=== PATIENT | male | born 1950 | race Caucasian/White ===

== ENCOUNTER → 2016-11-25 | Outpatient (CLI) | payer MEDICARE ==
[~2016-11-25] MED LIST: /OXYB10XLT PO; /VITACHEW PO; ALLO300T2 PO; ARTH1TAB PO; ASPI325T5 PO; BYET10IN SC; CALC600T9 PO; CARV25TA PO; CITA40TA PO; CORE25TA PO; DIOV320T PO; DIOVAN PO; FISH1000 PO; FURO80TA2 PO; MAGN64TASA PO; METF1000 PO; NEUR300C PO; OXYBUTYNIN PO; PANT40TA2 PO; PRAV40TA PO; VITAD1000T PO
[2016-11-25 13:08] LABS: ALBUMIN 3.8 GM/DL (3.2-5.2); ANION GAP 8 MEQ/L (8-16); BLOOD UREA NITROGEN 17 MG/DL (7-18); CALCIUM LEVEL 8.8 MG/DL (8.8-10.2); CARBON DIOXIDE LEVEL 29 MEQ/L (21-32); CHLORIDE LEVEL 106 MEQ/L (98-107); CREATININE FOR GFR 0.88 MG/DL (0.70-1.30); GLOMERULAR FILTRATION RATE > 60.0 (>49); GLUCOSE, FASTING 120 MG/DL (80-110); MAGNESIUM LEVEL 1.9 MG/DL (1.8-2.4); PHOSPHORUS LEVEL 2.8 MG/DL (2.5-4.9); POTASSIUM SERUM 4.2 MEQ/L (3.5-5.1); SODIUM LEVEL 143 MEQ/L (136-145)
== END ==
LOC: M LAB 11:59
PROVIDERS: ATTEND Physician Assistant
DX: I50.32 Chronic diastolic (congestive) heart failure (principal)

== ENCOUNTER → 2017-01-01 | Outpatient (CLI) | payer MEDICARE ==
--- NOTE | 2017-01-01 13:55 | REP ---
Clinical: Pain. Technique: AP, lateral, bilateral oblique views of the left wrist. Findings: Age-related arthritic degenerative changes primarily involving the first and second carpometacarpal joints noted. There is no evidence for acute or obvious healed fracture. Impression: Moderate osteoarthritic degenerative changes. No evidence for acute or healed fracture. Signed by Delio Iraheta MD 01/01/2017 01:46 P
== END ==
LOC: M RAD 13:05
DX: M25.532 Pain in left wrist (principal); M19.032 Primary osteoarthritis, left wrist

== ENCOUNTER → 2017-03-17 | Outpatient (CLI) | payer MEDICARE ==
[2017-03-17 09:22] LABS: ALBUMIN 3.6 GM/DL (3.2-5.2); ANION GAP 7 MEQ/L (8-16); BLOOD UREA NITROGEN 25 MG/DL (7-18); CALCIUM LEVEL 8.5 MG/DL (8.8-10.2); CARBON DIOXIDE LEVEL 28 MEQ/L (21-32); CHLORIDE LEVEL 104 MEQ/L (98-107); CREATININE FOR GFR 0.99 MG/DL (0.70-1.30); GLOMERULAR FILTRATION RATE > 60.0 (>49); GLUCOSE, FASTING 182 MG/DL (80-110); MAGNESIUM LEVEL 1.9 MG/DL (1.8-2.4); PHOSPHORUS LEVEL 3.2 MG/DL (2.5-4.9); POTASSIUM SERUM 4.7 MEQ/L (3.5-5.1); SODIUM LEVEL 139 MEQ/L (136-145)
== END ==
LOC: M LAB 08:10
PROVIDERS: ATTEND Physician Assistant
DX: I50.32 Chronic diastolic (congestive) heart failure (principal); I47.2 Ventricular tachycardia; I48.2 Chronic atrial fibrillation

== ENCOUNTER → 2017-05-06 | Outpatient (REF) | payer MEDICARE ==
[2017-05-06 19:16] LABS: PERCENT SATURATION 26.1 % (19.7-37.4)
== END ==
LOC: M LAB REF 16:25
PROVIDERS: ATTEND Nurse Practitioner Adult Health
DX: Z98.84 Bariatric surgery status (principal); Z79.899 Other long term (current) drug therapy

== ENCOUNTER → 2017-08-06 | Outpatient (REF) | payer MEDICARE | LOC: M LAB REF 17:04 | PROVIDERS: ATTEND Nurse Practitioner Adult Health | DX: Z01.89 Encounter for other specified special examinations (principal) ==

== ENCOUNTER 2017-11-04 12:05 | Inpatient (IN) | payer MEDICARE, MEDICAID ==
[2017-11-04] VITALS (9 sets, daily range): BP systolic 99–163; BP diastolic 53–95
[~2017-11-04] VITALS: Ht 188 cm; Wt 123.5 kg
[2017-11-04] MEDS ORDERED: CHARCOAL ACTIVATED LIQUID 25 GM/120 ML BTL PO ONE (13:00)
[2017-11-04 13:09] LABS: BASO % 0.2 % (0.0-1.0); EOS # 0.1 10^3/uL (0.0-0.50); EOS % 1.5 % (0.0-3.0); IMMATURE GRANULOCYTE % 0.2 % (0-0); LYMPH # 1.6 10^3/uL (1.5-4.5); LYMPH % 24.1 % (24.0-44.0); MEAN CORPUSCULAR HEMOGLOBIN 32.9 pg (27.0-33.0); MEAN CORPUSCULAR HGB CONC 34.8 g/dl (32.0-36.5); MEAN CORPUSCULAR VOLUME 94.3 fl (80.0-96.0); MONO # 0.4 10^3/uL (0.0-0.8); MONO % 6.8 % (0.0-5.0); NEUTROPHILS # 4.3 10^3/uL (1.8-7.7); NEUTROPHILS % 67.2 % (36.0-66.0); PLATELET COUNT, AUTOMATED 197 10^3/uL (150-450); RED CELL DISTRIBUTION WIDTH 14.1 % (11.5-14.5); WHITE BLOOD COUNT 6.5 10^3/uL (4.0-10.0)
[2017-11-04 13:19] LABS: ABG BASE EXCESS 2.6 (-2.0-2.0); ABG HCO3 24.8 MEQ/L (22.0-26.0); ABG PARTIAL PRESSURE CO2 31.4 mmHg (35.0-45.0); ABG PARTIAL PRESSURE O2 87.7 mmHg (75.0-100.0); ABG STANDARD HCO3 26.8 MEQ/L (22.0-26.0); ABG TOTAL CO2 25.7 MEQ/L (23.0-31.0); ABG pH (ARTERIAL) 7.515 UNITS (7.350-7.450)
[2017-11-04] MEDS ORDERED: NS 1,000 ML IV ONE ×2 (13:30→17:30)
[2017-11-04 13:46] LABS: ALBUMIN/GLOBULIN RATIO 1.18 (1.00-1.93); ALKALINE PHOSPHATASE 68 U/L (45-117); ALT/SGPT 23 U/L (12-78); ANION GAP 10 MEQ/L (8-16); AST/SGOT 12 U/L (7-37); BILIRUBIN,DIRECT 0.1 MG/DL (0.0-0.2); BILIRUBIN,TOTAL 0.3 MG/DL (0.2-1.0); BLOOD UREA NITROGEN 21 MG/DL (7-18); CALCIUM LEVEL 8.3 MG/DL (8.8-10.2); CARBON DIOXIDE LEVEL 27 MEQ/L (21-32); CHLORIDE LEVEL 102 MEQ/L (98-107); GLOMERULAR FILTRATION RATE > 60.0 (>49); GLUCOSE, FASTING 186 MG/DL (80-110); POTASSIUM SERUM 3.6 MEQ/L (3.5-5.1); SODIUM LEVEL 139 MEQ/L (136-145); TOTAL PROTEIN 7.4 GM/DL (6.4-8.2)
[2017-11-04 13:51] LABS: METHADONE URINE NEGATIVE (NEGATIVE)
[2017-11-04] MEDS ORDERED: GOLYTELY SOLN 4000 ML BTL NG STA (14:20)
[2017-11-04] MEDS ORDERED: ONDANSETRON 4MG/2ML VIAL (J2405) IV ONE (14:30)
--- NOTE | 2017-11-04 15:33 | REP ---
KUB: Single view. History: NG placement. Comparison abdominal films are from March 22, 2009. Findings: Portable KUB demonstrates the tip of the NG tube at the gastroesophageal junction just inside the gastric fundus. This should be advanced. There are clips at the GE junction. Air and fluid filled large and small bowel loops are seen. Signed by Tyson Rivers MD 11/04/2017 04:03 P
--- NOTE | 2017-11-04 15:37 | REP ---
Chest x-ray: Single supine view. History: NG placement. Findings: The right lateral chest wall is excluded from the imaging field of view. A nasogastric tube is seen coursing through the mediastinum terminating at the level of the gastroesophageal junction. This should be advanced. A bipolar pacemaker is seen in the right heart. There are surgical clips adjacent to the distal esophagus. Signed by Tyson Rivers MD 11/04/2017 04:03 P
[2017-11-04] MEDS ORDERED: CARV12.5 PO (15:38)
[2017-11-04] MEDS ORDERED: VALS1TAB47 PO (15:38)
[2017-11-04] MEDS ORDERED: XARE20TA PO (15:38)
[2017-11-04] MEDS ORDERED: PRAV80TA2 PO (15:38)
[2017-11-04] MEDS ORDERED: MYRB50TA PO (15:38)
[2017-11-04] MEDS ORDERED: ANOR1AER INH (15:38)
[2017-11-04] MEDS ORDERED: INSUDET SC (15:38)
--- NOTE | 2017-11-04 16:20 | REP ---
Portable chest x-ray: Two views presented. History: Drug overdose. Comparison study February 10, 2013. Findings: A pacemaker is seen in the right heart again via the left side. Cardiomegaly is observed as before. EKG electrodes are seen. No infiltrate is seen. Pleural angles are sharp. Pulmonary vasculature is not increased. Impression: Cardiomegaly with pacemaker. Otherwise no acute disease. Signed by Tyson Rivers MD 11/04/2017 04:11 P
[2017-11-04] MEDS ORDERED: DEXTROSE 50% 50 ML SYRINGE IV PRN (16:45)
[2017-11-04] MEDS ORDERED: GLUCAGON FOR INJ 1 MG VIAL (J1610) SC PRN (16:45)
[2017-11-04] MEDS ORDERED: ONDANSETRON 4MG/2ML VIAL (J2405) IV PRN (16:45)
[2017-11-04] MEDS ORDERED: GLUCOSE 4 GM CHEW TABLET PO PRN (16:45)
[2017-11-04] MEDS ORDERED: METOCLOPRAMIDE INJ 10MG/2ML VIAL (J2765) IV PRN (16:45)
--- NOTE | 2017-11-04 17:59 | HPEPDOC ---
General Date of Admission Nov 04, 2017 at 16:32 Primary Care Physician: Jr Harmon Collins Attending Physician: JANIA URBINA MD Chief Complaint The patient is a 67-year-old male admitted with a reason for visit of Intentional Furosemide And Metformin O/D. Source: Patient Timing/Duration: This morning Severity: Moderate History of Present Illness Parents is a 67 y. o white male, presents via ambulance due to intensional overdose. He admits to trying to kill himself with medication. He took 20 tablets of 1000 mg metformin, 30 tablets of 12.5 mg carvedilol, 77 tablets of 80 mg of Lasix, 60 tablets of 60 mg valsartan. Patient states that immediately after taking these pills he called ambulance crying and sobbing and asked for help. Patient states that he try to kill himself because he was severely depressed. According to patient, he went to a [a[place] with his in-laws and became incredibly saddened by the fact that no one asked how he was doing. He then went home and given fact that he lives alone with his cat. His depression worsen.This morning patient attempted to end his life by taking pills. Patient admits that he heard voices telling him to end his life. This is not patient's first suicide attempt, back in 2001 patient attempted suicide with pills after the of his mother and uncle. In the ED EKG showed an abnormal rhythm because of electronic ventricular pacemaker. Patient denied nausea, denied headache denied palpitations. He did admit to urinating excessively since taken his Lasix. He also denied chest pain. Patient denied abdominal pain. Patient denied hearing voices while in the ED. Denied homicidal ideation. Denied continued need for suicide Patient will appreciate a psych consult. Patient also requested to speak to his own elementary school librarian, I offered him the elementary school librarian in the hospital but patient declined. Patient has a past medical history of hypertension, neuropathy, arrhythmia, nephrolithiasis, diabetes dependent on insulin, hypercholesterolemia, paroxysmal atrial fibrillation, congestive heart failure (diastolic), with prior sustained ventricular tachycardia, obesity ( patient had a gastric bypass for his obesity), depression, prior suicide attempt, patient underwent a previous dual chamber automatic cardioverter defibrillator implant and subsequent AV aleshia ablation for paroxysmal atrial fibrillation inappropriate AICD discharge. In february 2013 patient underwent elective dual-chamber auto cardioverter/defibrillator pulse generator replacement because of initial device showing elective replacement indicator. Activated charcoal was started and whole bowel prep was started. The effects of the beta tramaine not be accessed because of his pacemaker. Home Medications Scheduled (Pantoprazole Sodium) 40 Mg Tab, 40 MG PO DAILY, (Reported) (Anoro Ellipta 62.5-25 Mcg/INH) 1 Aer Aer, 1 AER INH DAILY, (Reported) Allopurinol (Allopurinol) 300 Mg Tab, 300 MG PO DAILY, (Reported) Calcium Carbonate (Calcium) 600 Mg Tab, 600 MG PO BID, (Reported) Carvedilol (Carvedilol) 12.5 Mg Tab, 12.5 MG PO BID Citalopram Hydrobromide (Citalopram Hydrobromide) 40 Mg Tab, 40 MG PO DAILY, ( Reported) Fish Oil (Fish Oil) 1,000 Mg Cap, 1,000 MG PO TID, (Reported) Furosemide (Furosemide) 80 Mg Tab, 80 MG PO DAILY Gabapentin (Neurontin) 300 Mg Cap, 300 MG PO TID, (Reported) Insulin Detemir (Levemir) 1 Units/0.01 Ml Susp, 18 UNITS SC QHS, (Reported) Magnesium Chloride (Slo-Mag) 64 Mg Tabcr, 64 MG PO DAILY, (Reported) Metformin Hydrochloride (Metformin HCl) 1,000 Mg Tab, 1,000 MG PO BID Mirabegron Base (Myrbetriq) 50 Mg Tab, 50 MG PO DAILY, (Reported) Multivitamins (Flintstones Complete) 1 Ea Chw, 1 EA PO TID, (Reported) Pravastatin Sodium (Pravastatin Sodium) 80 Mg Tab, 80 MG PO DAILY, (Reported) Rivaroxaban (Xarelto) 20 Mg Tab, 20 MG PO DAILY, (Reported) Valsartan (Valsartan) 160 Mg Tab, 160 MG PO BID Vitamin D (Vitamin D) 1,000 Units Tab, 1,000 UNITS PO 1XWK, (Reported) SATURDAYS Scheduled PRN Acetaminophen (Tylenol Arthritis Er) 650 Mg Tabcr, 650 MG PO TID PRN for PAIN, ( Reported) Allergies Coded Allergies: No Known Allergies (Verified , 09/07/05) Past Medical History Medical History hypertension, neuropathy, arrhythmia, nephrolithiasis, diabetes dependent on insulin, hypercholesterolemia, paroxysmal atrial fibrillation, congestive heart failure (diastolic), with prior sustained ventricular tachycardia, obesity ( patient had a gastric bypass for his obesity), depression, prior suicide attempt , patient currently has an ICD Family History Both of his parents had colon cancer Social History * Smoker: former Smoker Alcohol: Denies Drugs: denies Recent Travel/Sick Contacts: Denies: Recent travel, Recent sick contacts Psychosocial History: Depression, Emotional problems, Prior suicide attempt, Suicidal thoughts Review of Systems Constitutional: Denies: Chills, Fever Eyes: Denies: Pain, Vision change ENT: Denies: Head Aches, Ear Pain, Dysphagia Skin: Denies: Rash, Lesions, Breakdown Pulmonary: Denies: Dyspnea, Cough Cardiovascular: Denies: Chest Pain, Palpitations, Orthopnea, Paroxysmal Noc. Dyspnea, Lt Headedness Gastrointestinal: Denies: Nausea, Vomiting, Abdominal Pain, Diarrhea Genitourinary: Denies: Dysuria, Frequency, Incontinence, Retention Hematologic: Denies: Bruising, Bleeding Excessively Musculoskeletal: Denies: Neck Pain, Back Pain, Joint Pain, Muscle Pain, Spasms Neurological: Denies: Weakness, Numbness, Change in speech, Confusion Psych: Reports: Mood Normal, Depression, Thoughts of Self Harm, Anger, Denies: Memory Issues, Thoughts of Harming Other Physical Examination General Exam: Positive: Alert, No Acute Distress Eye Exam: Positive: PERRLA, Conjunctiva & lids normal, EOMI, Negative: Sclera icteric ENT Exam: Positive: Atraumatic, Mucous membr. moist/pink, Pharynx Normal, Other ENT (nasogastric tube in place) Neck Exam: Positive: Supple, Negative: JVD, thyromegaly Chest Exam: Positive: Clear to auscultation, Normal air movement Heart Exam: Positive: Rate Normal, Irregular Rhythm, Normal S1, Normal S2, Negative: Murmurs, Rubs Telemetry: Positive: Atrial fibrillation, Tachycardia Abdomen Exam: Positive: Normal bowel sounds, Soft, Negative: Tenderness, Hepatospenomegaly Extremity Exam: Positive: Normal pulses, Negative: Clubbing, Cyanosis, Edema Skin Exam: Positive: Nl turgor and temperature, Negative: Breakdown, Lesion Neuro Exam: Positive: Normal Gait, Normal Speech, Cranial Nerves 3-12 NL, Reflexes 2+ Psych Exam: Positive: Mental status NL, Mood NL, Oriented x 3 Vital Signs Vital Signs Date Time Temp Pulse Resp B/P (MAP) Pulse Ox O2 Delivery O2 Flow Rate FiO2 12/21/17 16:33 97.9 18 11/04/17 15:05 69 96 11/04/17 14:41 112/77 (89) 11/04/17 12:16 Room Air Laboratory Data Labs 24H Laboratory Tests 2 11/04/17 12:48: [facility]H 11/04/17 12:55: Immature Granulocyte % (Auto) 0.2H, White Blood Count 6.5, Red Blood Count 4.23L , Hemoglobin 13.9L, Hematocrit 39.9L, Mean Corpuscular Volume 94.3, Mean Corpuscular Hemoglobin 32.9, Mean Corpuscular Hemoglobin Concent 34.8, Red Cell Distribution Width 14.1, Platelet Count 197, Neutrophils (%) (Auto) 67.2H, Lymphocytes (%) (Auto) 24.1, Monocytes (%) (Auto) 6.8H, Eosinophils (%) (Auto) 1.5, Basophils (%) (Auto) 0.2, Neutrophils # (Auto) 4.3, Lymphocytes # (Auto) 1.6, Monocytes # (Auto) 0.4, Eosinophils # (Auto) 0.1, Basophils # (Auto) 0.0, Immature Granulocyte # (Auto) 0.0, Nucleated Red Blood Cells % (auto) 0.0, Blood Gas Bicarbonate Standard 26.8H, Arterial Blood pH 7.515H, Arterial Blood Partial Pressure CO2 31.4L, Arterial Blood Partial Pressure O2 87.7, Arterial Blood Total CO2 25.7, Arterial Blood HCO3 24.8, Arterial Blood Base Excess 2.6H , Arterial Blood Oxygen Saturation 97.0, Anion Gap 10, Glomerular Filtration Rate > 60.0, Calcium Level 8.3L, Aspartate Amino Transf (AST/SGOT) 12, Alanine Aminotransferase (ALT/SGPT) 23, Alkaline Phosphatase 68, Total Bilirubin 0.3, Direct Bilirubin 0.1, Total Creatine Kinase 97, Total Protein 7.4, Albumin 4.0, Albumin/Globulin Ratio 1.18, Thyroid Stimulating Hormone (TSH) 1.230, Salicylates Level < 1.7L, Acetaminophen Level < 2.0L, Ethyl Alcohol Level 0.004 11/04/17 13:01: Urine Amphetamines Screen NEGATIVE, Urine Benzodiazepines Screen NEGATIVE, Urine Opiates Screen NEGATIVE, Urine Methadone Screen NEGATIVE, Urine Barbiturates Screen NEGATIVE, Urine Phencyclidine Screen NEGATIVE, Urine Cocaine Metabolite Screen NEGATIVE, Urine Cannabinoids Screen NEGATIVE 11/04/17 13:33: Lactic Acid Level 4.9*H 11/04/17 15:48: Lactic Acid Level 4.9*H 11/04/17 16:59: Bedside Glucose [facility]) 142H CBC/BMP Laboratory Tests 11/04/17 12:55 Red Blood Count 4.23 L, Mean Corpuscular Volume 94.3, Mean Corpuscular Hemoglobin 32.9, Mean Corpuscular Hemoglobin Concent 34.8, Red Cell Distribution Width 14.1, Neutrophils (%) (Auto) 67.2 H, Lymphocytes (%) (Auto) 24.1, Monocytes (%) (Auto) 6.8 H, Eosinophils (%) (Auto) 1.5, Basophils (%) ( Auto) 0.2, Neutrophils # (Auto) 4.3, Lymphocytes # (Auto) 1.6, Monocytes # (Auto ) 0.4, Eosinophils # (Auto) 0.1, Basophils # (Auto) 0.0 Assessment/Plan Suicidal ideation -Patient expresses suicidal ideations secondary to social factors, including living alone and issues about his stepson sexuality -Psychiatry has been called, Spoke to Dr. Miller, please call addiction counselor psychiatrist Dr. Yu tomorrow for consult. Medication overdose -Poison control has been contacted -Activated charcoal given -Whole bowel irrigation -Polyethylene glycol/electrolyte solution infusion started under the recommendation of poison control -It will start her 500 mls per hour and increase by 500 mL's every 20 minutes as patient tolerates that with a goal of 1500 200o ml an hour -Assess for bowel sounds every 30-60 minutes, stopping fusion if bowel sounds are absent, or pt passes activated charcoal -Visual lactic acid every 2 hours to monitor lactic acidosis: trend to normal -Nasogastric tube in place for suction of stomach content -Patient's heart rate is well-controlled with pacemaker Diabetes -Hold Levemir -And is on hypoglycemic protocol Paroxysmal afib : will continue anticoagulation Hypertension : will hold antihypertensives h/o sustained ventricular tachycardia: Has AICD in place diastolic CHF: fluid status euvolemic. Plan / VTE VTE Prophylaxis Ordered?: Yes GME ATTESTATION GME ATTESTATION My faculty preceptor for this patient encounter was physically present during the encounter and was fully available. All aspects of the patient interview, examination, medical decision making process, and medical care plan development were reviewed and approved by the faculty preceptor. The faculty preceptor is aware and concurs with the plan as stated in the body of this note and will attest to such by his/her cosignature. ROSY MOREJON DO Nov 04, 2017 17:59 JANIA URBINA MD Nov 08, 2017 13:16
[2017-11-04] MEDS: HumaLOG INSULIN (NovoLOG) PER UNIT SC SCH (18:00)
[2017-11-04 18:57] LABS: ALBUMIN 4.2 GM/DL (3.2-5.2); ALBUMIN/GLOBULIN RATIO 1.11 (1.00-1.93); ALKALINE PHOSPHATASE 74 U/L (45-117); ALT/SGPT 24 U/L (12-78); ANION GAP 11 MEQ/L (8-16); AST/SGOT 14 U/L (7-37); BILIRUBIN,TOTAL 0.5 MG/DL (0.2-1.0); BLOOD UREA NITROGEN 18 MG/DL (7-18); CALCIUM LEVEL 8.7 MG/DL (8.8-10.2); CARBON DIOXIDE LEVEL 23 MEQ/L (21-32); CHLORIDE LEVEL 104 MEQ/L (98-107); CREATININE FOR GFR 0.98 MG/DL (0.70-1.30); GLOMERULAR FILTRATION RATE > 60.0 (>49); GLUCOSE, FASTING 146 MG/DL (80-110); POTASSIUM SERUM 3.7 MEQ/L (3.5-5.1); SODIUM LEVEL 138 MEQ/L (136-145)
[2017-11-04] MEDS ORDERED: GOLYTELY SOLN 4000 ML BTL PO ONE (21:00)
[2017-11-04] MEDS ORDERED: NS 1,000 ML IV SCH (22:30)
[2017-11-05] VITALS (12 sets, daily range): BP systolic 108–183; BP diastolic 61–95
[2017-11-05] MEDS: HumaLOG INSULIN (NovoLOG) PER UNIT SC SCH ×5 (00:14→23:49)
[2017-11-05 00:59] LABS: ANION GAP 9 MEQ/L (8-16); BLOOD UREA NITROGEN 20 MG/DL (7-18); CALCIUM LEVEL 8.5 MG/DL (8.8-10.2); CARBON DIOXIDE LEVEL 27 MEQ/L (21-32); CHLORIDE LEVEL 102 MEQ/L (98-107); CREATININE FOR GFR 1.24 MG/DL (0.70-1.30); GLOMERULAR FILTRATION RATE > 60.0 (>49); GLUCOSE, FASTING 185 MG/DL (80-110); POTASSIUM SERUM 3.3 MEQ/L (3.5-5.1); SODIUM LEVEL 138 MEQ/L (136-145)
[2017-11-05] MEDS ORDERED: GOLYTELY SOLN 4000 ML BTL PO ONE ×2 (02:30→09:00)
[2017-11-05] MEDS: NS 1,000 ML IV SCH ×2 (02:58→08:00)
[2017-11-05 05:10] LABS: MEAN CORPUSCULAR HEMOGLOBIN 32.4 pg (27.0-33.0); MEAN CORPUSCULAR HGB CONC 34.4 g/dl (32.0-36.5); MEAN CORPUSCULAR VOLUME 94.1 fl (80.0-96.0); PLATELET COUNT, AUTOMATED 179 10^3/uL (150-450); RED CELL DISTRIBUTION WIDTH 13.9 % (11.5-14.5); WHITE BLOOD COUNT 7.8 10^3/uL (4.0-10.0)
[2017-11-05 05:22] LABS: ANION GAP 10 MEQ/L (8-16); BLOOD UREA NITROGEN 20 MG/DL (7-18); CALCIUM LEVEL 7.9 MG/DL (8.8-10.2); CARBON DIOXIDE LEVEL 28 MEQ/L (21-32); CHLORIDE LEVEL 103 MEQ/L (98-107); CREATININE FOR GFR 1.22 MG/DL (0.70-1.30); GLOMERULAR FILTRATION RATE > 60.0 (>49); GLUCOSE, FASTING 155 MG/DL (80-110); POTASSIUM SERUM 3.2 MEQ/L (3.5-5.1); SODIUM LEVEL 141 MEQ/L (136-145)
[2017-11-05] MEDS ORDERED: ACETAMINOPHEN 650MG ER TAB (TYLENOL ARTHRITIS) PO PRN (06:00)
[2017-11-05] MEDS: ALLOPURINOL 300 MG TAB PO SCH (08:18)
[2017-11-05] MEDS: PRAVASTATIN 20 MG TAB PO SCH (08:18)
[2017-11-05] MEDS: KCL 10MEQ IN 100ML SWI (KRUN) 10 MEQ in APPROPRIATE DILUENT 1 EA IV SCH ×8 (08:18→11:31)
[2017-11-05] MEDS: GABAPENTIN 300 MG CAP PO SCH ×3 (08:18→20:09)
[2017-11-05] MEDS: PANTOPRAZOLE 40MG TAB (PROTONIX) PO SCH (08:19)
[2017-11-05] MEDS: ENOXAPARIN 40 MG/0.4 ML SYRINGE (J1650) SC SCH (08:19)
--- NOTE | 2017-11-05 16:41 | ECGEPIP ---
Stationary ECG Study [facility] - ED Test Date: 2017-11-04 Pat Name: JODY BUENROSTRO Department: Room: - Gender: M Copy Room Technician: ct : 1950 Requested By: Brian Yin Order Number: [id number] Reading MD: Princess Alexander Measurements Intervals [place] Rate: 69 P: [place]: 0 QRS: -75 QRSD: 186 T: 79 QT: 451 QTc: 486 Interpretive Statements ELECTRONIC VENTRICULAR PACEMAKER ABNORMAL RHYTHM ECG SIMILAR 10/02/16 Electronically Signed On 11-05-2017 16:41:16 EST by Princess Alexander
--- NOTE | 2017-11-05 17:27 | IPN ---
DATE: 11/05/2017 SUBJECTIVE: The patient is seen and examined in the intensive care unit (ICU) today. Does not have any acute complaints or acute changes. When asking a question of what medication has he overdosed on, on multiple occasions his story does not have a consistency. First, a lot of times he stated he forgot about the number of pills he took and he does not remember what medication he overdosed on. Per record, he overdosed on metformin, carvedilol, Lasix and valsartan. During the third and the fourth time asking about the medication overdose, he stated the last time he took the carvedilol and valsartan was more than 24 hours ago. When asking about the number of Lasix pills he took, he stated it was the whole bottle but he does not remember how many pills exactly. Since admission, Poison Control has been contacted, and the patient finished several runs of GolMonoSphere preparations. In the emergency room, we can actually see some charcoal from the bowel movements, and the patient remains nothing by mouth (n.p.o.) for now. OBJECTIVE: VITAL SIGNS: Temperature is 99, pulse is 69, respirations 20, blood pressure is 158/82, pulse oximetry is 98% in room air. GENERAL: No sign of acute distress. Resting comfortably in bed. Alert and oriented times three. HEENT: Normocephalic, atraumatic. Extraocular motor grossly intact. CARDIOVASCULAR: Irregularly irregular, positive S1, S2, running in the satisfactory range. LUNGS: Clear to auscultation bilaterally. ABDOMEN: Soft, nontender, nondistended. EXTREMITIES: No edema, no cyanosis. LABORATORY DATA: WBC is 7.8, hemoglobin 13.2, hematocrit 38.4, platelet count is 179. Sodium is 141, potassium 3.2, chloride is 103, carbon dioxide 28, BUN 20, creatinine 1.22, GFR is greater than 60, fasting glucose is 155, calcium is 7.9. ASSESSMENT AND PLAN: 1. Suicidal attempt with medication use overdose. Patient is monitored in the ICU. The patient has a sitter. The patient continues to be monitored on telemetry. There is inconsistency regarding the number of pills and the type of medications the patient has been taking. Per patient, the patient is taking a significant amount of Lasix, valsartan, metformin and carvedilol. However, the patient is actually hypertensive now. The patient is resting comfortably in bed. Poison Control has been contacted since admission. The patient had multiple runs of Golytely, and we can actually see some active charcoal through the bowel movements. Poison Control was contacted later, and recommended stopping the bowel regimen and continue to observe the patient. We will continue to monitor the patient on telemetry. If patient remains stable, will contact psychiatrist tomorrow morning. 2. Atrial fibrillation. Currently rate is in the satisfactory range. Heart rate is around 70s. Due to hypertension, we will start the carvedilol. 3. Hypertension. Carvedilol and valsartan were started; valsartan started at a lower dose and both valsartan and Coreg has withholding parameter for the blood pressure. 4. Diabetes. The patient is currently nothing by mouth, on sliding scale every 6 hours. 5. History of neuropathy. 6. History of diastolic congestive heart failure. No sign of overload at this moment. 7. Obesity. 8. Depression. 9. Prior suicide attempt. 10. Deep vein thrombosis (DVT) prophylaxis. The patient is on Lovenox.
[2017-11-05] MEDS: VALSARTAN 80 MG TAB (DIOVAN) PO SCH (20:09)
[2017-11-05] MEDS: CARVedilol 12.5 MG TAB PO SCH (20:09)
[2017-11-06] VITALS: BP 144/78
[2017-11-06 04:22] LABS: MEAN CORPUSCULAR HEMOGLOBIN 32.9 pg (27.0-33.0); MEAN CORPUSCULAR HGB CONC 34.9 g/dl (32.0-36.5); MEAN CORPUSCULAR VOLUME 94.4 fl (80.0-96.0); PLATELET COUNT, AUTOMATED 163 10^3/uL (150-450); RED CELL DISTRIBUTION WIDTH 14.1 % (11.5-14.5); WHITE BLOOD COUNT 5.8 10^3/uL (4.0-10.0)
[2017-11-06 04:38] LABS: ANION GAP 7 MEQ/L (8-16); BLOOD UREA NITROGEN 15 MG/DL (7-18); CARBON DIOXIDE LEVEL 29 MEQ/L (21-32); CHLORIDE LEVEL 106 MEQ/L (98-107); CREATININE FOR GFR 0.77 MG/DL (0.70-1.30); GLOMERULAR FILTRATION RATE > 60.0 (>49); GLUCOSE, FASTING 150 MG/DL (80-110); POTASSIUM SERUM 3.1 MEQ/L (3.5-5.1); SODIUM LEVEL 142 MEQ/L (136-145)
[2017-11-06] MEDS: HumaLOG INSULIN (NovoLOG) PER UNIT SC SCH ×4 (05:06→17:30)
[2017-11-06 08:00] VITALS: BP 177/105
[2017-11-06] MEDS ORDERED: POTASSIUM CHLORIDE 10 MEQ SR TABLET PO ONE (08:00)
[2017-11-06] MEDS: KCL 10MEQ IN 100ML SWI (KRUN) 10 MEQ in APPROPRIATE DILUENT 1 EA IV SCH ×4 (08:06→09:12)
[2017-11-06] MEDS: PRAVASTATIN 20 MG TAB PO SCH (08:06)
[2017-11-06] MEDS: ALLOPURINOL 300 MG TAB PO SCH (08:07)
[2017-11-06] MEDS: GABAPENTIN 300 MG CAP PO SCH ×3 (08:07→21:10)
[2017-11-06] MEDS: CARVedilol 12.5 MG TAB PO SCH ×2 (08:07→21:11)
[2017-11-06] MEDS: VALSARTAN 80 MG TAB (DIOVAN) PO SCH ×2 (08:07→21:10)
[2017-11-06] MEDS: ENOXAPARIN 40 MG/0.4 ML SYRINGE (J1650) SC SCH (08:08)
[2017-11-06] MEDS: PANTOPRAZOLE 40MG TAB (PROTONIX) PO SCH (08:08)
[2017-11-06 12:05] VITALS: BP 140/75
[2017-11-06 16:00] VITALS: BP 182/89
[2017-11-06 16:05] VITALS: BP 130/74
--- NOTE | 2017-11-06 16:17 | IPNPDOC ---
Text Note Date of Service The patient was seen on 11/06/17. NOTE SUBJECTIVE: The patient is seen and examined today. Patient denies any acute complaint. Vitals are stable. OBJECTIVE: VITAL SIGNS: Listed below. GENERAL: No sign of acute distress. Resting comfortably in bed. Alert and oriented times three. HEENT: Normocephalic, atraumatic. Extraocular motor grossly intact. CARDIOVASCULAR: Irregularly irregular, positive S1, S2, running in the satisfactory range. LUNGS: Clear to auscultation bilaterally. ABDOMEN: Soft, nontender, nondistended. EXTREMITIES: No edema, no cyanosis. LABORATORY DATA: Listed below. ASSESSMENT AND PLAN: 1. Suicidal attempt with medication use overdose. The patient has a sitter. The patient continues to be monitored on telemetry. Per patient, the patient took significant amount of Lasix, valsartan, metformin and carvedilol. However, the patient has been hypertensive and that is very strange. The patient is resting comfortably in bed. The patient had activated charcoal and multiple runs of Golytely. Psychiatrist consulted 11/06/17 2. Persistent hypokalemia. Most likely secondary to Golytely and lasix. Continue supplements. 2. Atrial fibrillation. Currently rate is in the satisfactory range. Heart rate is around 70s. Due to hypertension, we will start the carvedilol. 3. Hypertension. Carvedilol and valsartan were started; valsartan started at a lower dose and both valsartan and Coreg has withholding parameter for the blood pressure. 4. Diabetes. Diet restarted. On sliding scale. 5. History of neuropathy. 6. History of diastolic congestive heart failure. No sign of overload at this moment. 7. Obesity. 8. Depression. 9. Prior suicide attempt. 10. Deep vein thrombosis (DVT) prophylaxis. The patient is on Lovenox. VS,Fishbone, I+O VS, Fishbone, I+O Laboratory Tests 11/06/17 04:08 Red Blood Count 3.95 L, Mean Corpuscular Volume 94.4, Mean Corpuscular Hemoglobin 32.9, Mean Corpuscular Hemoglobin Concent 34.9, Red Cell Distribution Width 14.1, Calcium Level 8.0 L Vital Signs Date Time Temp Pulse Resp B/P (MAP) Pulse Ox O2 Delivery O2 Flow Rate FiO2 12/23/17 08:07 177/105 11/06/17 08:07 69 11/06/17 08:00 98.7 21 98 Room Air I&O- Last 24 Hours up to 6 AM 11/06/17 06:00 Intake Total 4440 ml Output Total 4275 ml Balance 165 ml NATALIE ROWE DO Nov 06, 2017 16:17
[2017-11-06 16:59] LABS: ANION GAP 6 MEQ/L (8-16); BLOOD UREA NITROGEN 16 MG/DL (7-18); CARBON DIOXIDE LEVEL 30 MEQ/L (21-32); CHLORIDE LEVEL 106 MEQ/L (98-107); GLOMERULAR FILTRATION RATE > 60.0 (>49); GLUCOSE, FASTING 85 MG/DL (80-110); POTASSIUM SERUM 3.6 MEQ/L (3.5-5.1); SODIUM LEVEL 142 MEQ/L (136-145)
--- NOTE | 2017-11-06 17:35 | MHCRPDOC ---
[facility] Consultation Consultation DATE OF CONSULTATION: 11/06/17 CONSULTATION REQUESTED BY: Dr. Hill REASON FOR CONSULTATION: SA RELEVANT HISTORY: 67 yo M, PMH of CHF, Afib, DM2, neuropathy, PPH of MDD, one prior psychiatric hospitalization in 2003, presents after drug OD. Psych consulted to see if patient needs psych admission. Patient states that he felt depressed and lonely. Triggered by recent episode in which his extended family members were gathered in a group, and they ignored him and did not has how he was doing. Stated he overdosed on many bottles of medication as a way to cry out for attention. Patient did not take excessive xarelto States that he is not suicidal, denies current SI intent and plan. Has poor sleep and anxiety. Did not endorse anhedonia, hopelessness, fatigue. Denies manic symptoms, denies AVH. When asked if he felt like he needed inpatient hospitalization, patient stated he would like to have someone to talk to but he would like to be out by Jose so that he could take his out for dinner. When told that it was unlikely for him to be let out before [place], patient declined psychiatric hospitalization. Stated affirmed that he has no intention to OD again. Discussed with patient outpatient therapy, provided patient with numbers to call, patient was satisfied that he would have someone to talk to long-term. PAST PSYCHIATRIC HISTORY: has seen a therapist years ago, current on psych meds from PCP, celexa 40 mg daily, also on gabapentin for neuropathy. Was hospitalized in 2003 for SI due to stress with prior . PAST MEDICAL HISTORY: CHF, Afib, DM2, neuropathy FAMILY HISTORY: denies PERSONAL AND SOCIAL HISTORY: Born in [place], grew up with both parents, 4 siblings, finished [employer], worked as a cook , 3 times, no bio children, one stepson, on disability. 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 SUBSTANCE ABUSE HISTORY: quit cigs 30 years ago, no drug or ETOH abuse LEGAL HISTORY: did not assess MENTAL STATUS EXAMINATION: Behavior: calm, cooperative, related Speech is normal RRVT Thought processes including: linear Thought content: appropriate to conversation, overly endorses details from past Judgment: below average Insight: fair Orientation to aaox3 Mood: a little depressed, lonely Affect: dysthymic, reactive DIAGNOSIS: 1. MDD Assessment: patient is depressed but not acutely suicidal. It is unclear based on the lab values and vitals signs whether patient took as many pills as he claimed. Patient is future oriented, makes plans for [place], and is motivated to seek outpatient therapy. PLAN: 1. Does not qualify for involuntary psychiatric hospitalization. Offered patient voluntary psychiatric hospitalization, patient declined. Option always available if patient changes his mind 2. Patient to seek outpatient therapy 3. Continue current psychiatric medications 4. Discussed with Dr. Hill Call psych if any further questions Vital Signs Vital Signs Date Time Temp Pulse Resp B/P (MAP) Pulse Ox O2 Delivery O2 Flow Rate FiO2 11/06/17 08:07 177/105 11/06/17 08:07 69 11/06/17 08:00 98.7 21 98 Room Air Laboratory Data 24H Labs Laboratory Tests 2 11/05/17 17:29: Bedside Glucose (Misc Panel) 117H 11/05/17 23:38: Bedside Glucose (Misc Panel) 137H 11/06/17 04:08: Nucleated Red Blood Cells % (auto) 0.0, Anion Gap 7L, Glomerular Filtration Rate > 60.0, Blood Urea Nitrogen 15, Creatinine 0.77, Sodium Level 142, Potassium Level 3.1L, Chloride Level 106, Carbon Dioxide Level 29, Calcium Level 8.0L 11/06/17 13:30: Bedside Glucose (Misc Panel) 188H 11/06/17 16:30: Anion Gap 6L, Glomerular Filtration Rate > 60.0, Blood Urea Nitrogen 16, Creatinine 0.70, Sodium Level 142, Potassium Level 3.6, Chloride Level 106, Carbon Dioxide Level 30, Calcium Level 8.0L 11/06/17 16:55: Bedside Glucose (Misc Panel) 91 Home Medications Current Medications Current Medications Acetaminophen (Tylenol Arthritis Er) 650 mg TIDP PRN PO PAIN; Start 11/05/17 at 06:00; Stop 12/05/17 at 05:59 Allopurinol (Zyloprim) 300 mg DAILY PO Last administered on 11/06/17 08:07; Start 11/05/17 at 09:00; Stop 12/05/17 at 08:59 Carvedilol (COReg) 12.5 mg BID PO Last administered on 11/06/17 08:07; Start 11/05/17 at 21:00; Stop 1/21/18 at 20:59 Dextrose (Dextrose 50%) 25 ml ASDIRECTED PRN IV SEE LABEL COMMENTS; Start at 16:45; Stop 12/04/17 at 16:44 Enoxaparin Sodium (Lovenox) 40 mg DAILY SC Last administered on 11/06/17 08: 08; Start 11/05/17 at 09:00; Stop 11/10/17 at 08:59 Gabapentin (Neurontin) 300 mg TID PO Last administered on 11/06/17 08:07; Start 11/05/17 at 09:00; Stop 12/05/17 at 08:59 Glucagon (Glucagon) 1 mg ASDIRECTED PRN SC SEE LABEL COMMENTS; Start 11/04/17 at 16:45; Stop 12/04/17 at 16:44 Glucose (Glucose) 16 GM ASDIRECTED PRN PO SEE LABEL COMMENTS; Start 11/04/17 at 16:45; Stop 12/04/17 at 16:44 Home Med (Med Rec Complete!) ASDIRECTED XX ; Start 11/04/17 at 15:45; Stop at 15:45; Status DC Insulin Human Lispro (HumaLOG INSULIN) SEE PROTOCOL TABLE Q6H SC Last administered on 11/06/17 05:06; Start 11/04/17 at 18:00; Stop 11/06/17 at 13 :36; Status DC Insulin Human Lispro (HumaLOG INSULIN) See Protocol Table AC SC Last administered on 11/06/17 13:36; Start 11/06/17 at 12:00; Stop 12/06/17 at 11: 59 Insulin Human Lispro (HumaLOG INSULIN) See Protocol Table QHS SC ; Start at 21:00; Stop 12/06/17 at 20:59 Metoclopramide HCl (REGLAN INJection) 10 mg Q6HP PRN IV NAUSEA OR VOMITING Last administered on 11/04/17 18:30; Start 11/04/17 at 16:45; Stop 12/04/17 at 16:44 Ondansetron HCl (ZOFRAN INJection) 4 mg Q6HP PRN IV NAUSEA OR VOMITING; Start 11/04/17 at 16:45; Stop 12/04/17 at 16:44 Pantoprazole Sodium (Protonix) 40 mg DAILY PO Last administered on 11/06/17 08:08; Start 11/05/17 at 09:00; Stop 12/05/17 at 08:59 Polyethylene Glycol/ Electrolyte Rachna (Golytely) 4,000 ml ASDIRECTED STAT NG Last administered on 11/04/17 15:30; Start 11/04/17 at 14:20; Stop 11/04/17 at 14:29; Status DC Potassium Chloride 10 meq/ IV Miscellaneous Supplies 100 ml @ 100 mls/hr Q1H IV Last administered on 11/05/17 11:31; Start 11/05/17 at 07:30; Stop 11/05 at 11:29; Status DC Potassium Chloride 10 meq/ IV Miscellaneous Supplies 100 ml @ 100 mls/hr Q1H IV Last administered on 11/06/17 09:12; Start 11/06/17 at 08:00; Stop 11/06 at 10:59; Status DC Pravastatin Sodium (Pravachol) 80 mg DAILY PO Last administered on 11/06/17 08:06; Start 11/05/17 at 09:00; Stop 12/05/17 at 08:59 Sodium Chloride 1,000 ml @ 200 mls/hr Q5H IV Last administered on 11/04/17 22:33; Start 11/04/17 at 22:30; Stop 11/05/17 at 02:57; Status DC Sodium Chloride 1,000 ml @ 200 mls/hr Q5H IV Last administered on 11/05/17 02:58; Start 11/05/17 at 03:00; Stop 11/05/17 at 08:00; Status DC Valsartan (Diovan) 80 mg BID PO Last administered on 11/06/17 08:07; Start 11/05/17 at 21:00; Stop 12/05/17 at 20:59 Scheduled (Pantoprazole Sodium) 40 Mg Tab, 40 MG PO DAILY, (Reported) (Anoro Ellipta 62.5-25 Mcg/INH) 1 Aer Aer, 1 AER INH DAILY, (Reported) Allopurinol (Allopurinol) 300 Mg Tab, 300 MG PO DAILY, (Reported) Calcium Carbonate (Calcium) 600 Mg Tab, 600 MG PO BID, (Reported) Carvedilol (Carvedilol) 12.5 Mg Tab, 12.5 MG PO BID, (Reported) Citalopram Hydrobromide (Citalopram Hydrobromide) 40 Mg Tab, 40 MG PO DAILY, ( Reported) Fish Oil (Fish Oil) 1,000 Mg Cap, 1,000 MG PO TID, (Reported) Furosemide (Furosemide) 80 Mg Tab, 80 MG PO DAILY, (Reported) Gabapentin (Neurontin) 300 Mg Cap, 300 MG PO TID, (Reported) Insulin Detemir (Levemir) 1 Units/0.01 Ml Susp, 18 UNITS SC QHS, (Reported) Magnesium Chloride (Slo-Mag) 64 Mg Tabcr, 64 MG PO DAILY, (Reported) Metformin Hydrochloride (Metformin Hcl) 1,000 Mg Tab, 1,000 MG PO BID, (Reported ) Mirabegron Base (Myrbetriq) 50 Mg Tab, 50 MG PO DAILY, (Reported) Multivitamins (Flintstones Complete) 1 Ea Chw, 1 EA PO TID, (Reported) Pravastatin Sodium (Pravastatin Sodium) 80 Mg Tab, 80 MG PO DAILY, (Reported) Rivaroxaban (Xarelto) 20 Mg Tab, 20 MG PO DAILY, (Reported) Valsartan (Valsartan) 160 Mg Tab, 160 MG PO BID, (Reported) Vitamin D (Vitamin D) 1,000 Units Tab, 1,000 UNITS PO 1XWK, (Reported) SATURDAYS Scheduled PRN Acetaminophen (Tylenol Arthritis Er) 650 Mg Tabcr, 650 MG PO TID PRN for PAIN, ( Reported) Allergies Coded Allergies: No Known Allergies (Verified , 09/07/05) DAVID WORKMAN MD Nov 06, 2017 17:35
[2017-11-06 20:00] VITALS: BP 164/87
[2017-11-06] MEDS ORDERED: HumaLOG INSULIN (NovoLOG) PER UNIT SC SCH (21:00)
[2017-11-07] VITALS: BP 131/73
[2017-11-07 04:05] VITALS: BP 180/110
[2017-11-07 04:15] VITALS: BP 180/110
[2017-11-07] MEDS ORDERED: **hydrALAZINE** 10 MG TAB PO ONE (04:30)
[2017-11-07 05:48] LABS: MEAN CORPUSCULAR HEMOGLOBIN 32.1 pg (27.0-33.0); MEAN CORPUSCULAR HGB CONC 34.5 g/dl (32.0-36.5); MEAN CORPUSCULAR VOLUME 93.1 fl (80.0-96.0); PLATELET COUNT, AUTOMATED 177 10^3/uL (150-450); RED CELL DISTRIBUTION WIDTH 13.7 % (11.5-14.5); WHITE BLOOD COUNT 5.1 10^3/uL (4.0-10.0)
[2017-11-07 06:00] VITALS: BP 174/104
[2017-11-07 06:09] LABS: ANION GAP 5 MEQ/L (8-16); BLOOD UREA NITROGEN 14 MG/DL (7-18); CALCIUM LEVEL 8.5 MG/DL (8.8-10.2); CARBON DIOXIDE LEVEL 29 MEQ/L (21-32); CHLORIDE LEVEL 105 MEQ/L (98-107); CREATININE FOR GFR 0.71 MG/DL (0.70-1.30); GLOMERULAR FILTRATION RATE > 60.0 (>49); GLUCOSE, FASTING 163 MG/DL (80-110); POTASSIUM SERUM 3.7 MEQ/L (3.5-5.1); SODIUM LEVEL 139 MEQ/L (136-145)
[2017-11-07] MEDS: CARVedilol 12.5 MG TAB PO SCH (07:22)
[2017-11-07] MEDS: HumaLOG INSULIN (NovoLOG) PER UNIT SC SCH (07:28)
[2017-11-07] MEDS: PRAVASTATIN 20 MG TAB PO SCH (07:28)
[2017-11-07] MEDS: PANTOPRAZOLE 40MG TAB (PROTONIX) PO SCH (07:28)
[2017-11-07] MEDS: GABAPENTIN 300 MG CAP PO SCH (07:29)
[2017-11-07] MEDS: ENOXAPARIN 40 MG/0.4 ML SYRINGE (J1650) SC SCH (07:29)
[2017-11-07] MEDS: ALLOPURINOL 300 MG TAB PO SCH (07:29)
[2017-11-07 08:15] VITALS: BP 150/92
[2017-11-07] MEDS ORDERED: FUROSEMIDE 80 MG TAB PO SCH (09:00)
[2017-11-07] MEDS ORDERED: VALSARTAN 80 MG TAB (DIOVAN) PO SCH (09:00)
[2017-11-07] MEDS ORDERED: CARV12.5 PO (10:01)
[2017-11-07] MEDS ORDERED: VALS1TAB47 PO (10:01)
[2017-11-07] MEDS ORDERED: FURO80TA2 PO (10:01)
[2017-11-07] MEDS ORDERED: METF10004 PO (10:03)
--- NOTE | 2017-11-07 19:54 | DSES ---
DATE OF ADMISSION: 11/04/2017 DATE OF DISCHARGE: 11/07/2017 PRIMARY CARE PROVIDER: Ni Reyes. CONSULTANTS: Dr. Yu. PROCEDURES: Nasogastric tube placement. DISCHARGE DIAGNOSES: 1. Suicidal attempt with a medication overdose. 2. Persistent hypokalemia. 3. Atrial fibrillation. 4. Hypertension. 5. Diabetes. 6. Neuropathy. 7. History of diastolic congestive heart failure. 8. Depression. 9. History of prior suicidal attempt. HOSPITALIZATION COURSE: The patient is a 67-year-old male who presented to [facility] on 11/04/2017, after ingesting a large amount of medication. Per the patient and the record, the patient took multiple doses of metformin, carvedilol, Lasix, and valsartan, and the patient was admitted to the intensive care unit (ICU) for close cardiac telemetry and management. Poison Control was contacted. The patient received active charcoal and GoLYTELY in the hospital. A one-to-one sitter was also ordered, and Poison Control was being contacted constantly to update the patient's progression and medications given per recommendations. Surprisingly, the patient does not have any significant vital instability. Will all the blood pressure medication and heart medication the patient had been taking, the patient did not develop any type of hypotension and the patient actually had become more hypertensive. Medication resumed to control the patient's elevated blood pressure. On 11/06/2017, psychiatrist consulted for patient's possible suicidal attempt from multidrug overdose, and the patient determined not actually suicidal. The patient was very depressed, and the patient does not quality for involuntary psychiatric hospitalization. The patient is recommended to followup with outpatient therapist. On 11/07/2017, the patient is discharged home with recommendation to followup with the primary care provider, Ni Reyes, in 7-10 days. The patient is strongly encouraged to establish with outpatient therapist and information is given. VITAL SIGNS: On the day of discharge, temperature 97.6, pulse 70, respirations 18, blood pressure 150/92, pulse oximetry is 96% on room air. LABORATORY DATA: On the day of discharge, WBC 5.1, hemoglobin 13.1, hematocrit 38, platelet count 177. Sodium 139, potassium 3.7, chloride 105, carbon dioxide 29, BUN 14, creatinine 0.71. GFR is greater than 60. Fasting glucose 163, calcium 8.5. Urine toxicology in 11/04/2017 is negative. IMAGING: Chest x-ray on 11/04/2017, showed cardiomegaly with pacemaker. Otherwise no acute disease. Abdominal x-ray on 11/04/2017, showed nasogastric (NG) tube placement. DISCHARGE MEDICATIONS: - Lasix 80 mg by mouth daily - metformin 1000 mg by mouth twice a day - Tylenol 650 mg by mouth three times a day as needed - allopurinol 300 mg by mouth daily - Ellipta inhalation daily - calcium 600 mg by mouth twice a day - carvedilol 12.5 mg by mouth twice a day - citalopram 40 mg by mouth daily - gabapentin 300 mg by mouth three times a day - insulin Levemir 16 units subcutaneous at bedtime - magnesium chloride 64 mg by mouth daily - Myrbetriq 50 mg by mouth daily - multivitamin one tablet by mouth three times a day - pantoprazole 40 mg by mouth daily - pravastatin 80 mg by mouth daily - Xarelto 20 mg by mouth daily - losartan 160 mg by mouth twice a day DISCHARGE INSTRUCTIONS: Discontinue lines. Discharge home. Activity as tolerated. Consistent carbohydrate diet as tolerated. The patient should followup with the primary care provider in 7-10 days. The patient is strongly encouraged to establish with outpatient therapist at his earliest convenience. CONDITION ON DISCHARGE: Stable. DISCHARGE TIME: Greater than 30 minutes. During this hospitalization, when the patient is alert, awake, and oriented, multiple incidental asking about the type of medication and number of the pills the patient took extra; however, it is uncertain how many pills the patient took prior to hospitalization.
== END 2017-11-07 11:05 | disposition home or self-care (01) | DRG 918 ==
LOC: M ED 12:05 → EDBD 12:05 → M ED INP 16:32 → M ICU 17:50 → M MSPAV 11-07 03:59
PROVIDERS: ADMIT Internal Medicine Nephrology; ATTEND Internal Medicine
DX: T38.3X2A Poisoning by insulin and oral hypoglycemic [antidiabetic] drugs, intentional self-harm, initial encounter (principal); R45.851 Suicidal ideations; I50.32 Chronic diastolic (congestive) heart failure; E87.2 Acidosis; T50.1X2A Poisoning by loop [high-ceiling] diuretics, intentional self-harm, initial encounter; T44.7X2A Poisoning by beta-adrenoreceptor antagonists, intentional self-harm, initial encounter; T46.5X2A Poisoning by other antihypertensive drugs, intentional self-harm, initial encounter; E87.6 Hypokalemia; F32.9 Major depressive disorder, single episode, unspecified; E11.40 Type 2 diabetes mellitus with diabetic neuropathy, unspecified; I48.0 Paroxysmal atrial fibrillation; Z79.899 Other long term (current) drug therapy; Z79.4 Long term (current) use of insulin; I11.9 Hypertensive heart disease without heart failure; E78.00 Pure hypercholesterolemia, unspecified; E66.9 Obesity, unspecified; Z93.1 Gastrostomy status; Z95.0 Presence of cardiac pacemaker; Z87.891 Personal history of nicotine dependence; X83.8XXA Intentional self-harm by other specified means, initial encounter; Y92.009 Unspecified place in unspecified non-institutional (private) residence as the place of occurrence of the external cause

== ENCOUNTER → 2017-12-28 | Outpatient (CLI) | payer MEDICARE, MEDICAID ==
[2017-12-28 10:21] LABS: HEMATOCRIT 39.8 % (42.0-52.0); HEMOGLOBIN 13.5 g/dl (14.0-18.0); MEAN CORPUSCULAR HEMOGLOBIN 32.5 pg (27.0-33.0); MEAN CORPUSCULAR HGB CONC 33.9 g/dl (32.0-36.5); MEAN CORPUSCULAR VOLUME 95.7 fl (80.0-96.0); PLATELET COUNT, AUTOMATED 194 10^3/uL (150-450); RED BLOOD COUNT 4.16 10^6/uL (4.30-6.10); RED CELL DISTRIBUTION WIDTH 13.3 % (11.5-14.5); WHITE BLOOD COUNT 6.6 10^3/uL (4.0-10.0)
[2017-12-28 10:39] LABS: ALBUMIN 3.9 GM/DL (3.2-5.2); ANION GAP 9 MEQ/L (8-16); BLOOD UREA NITROGEN 33 MG/DL (7-18); CALCIUM LEVEL 8.5 MG/DL (8.8-10.2); CARBON DIOXIDE LEVEL 27 MEQ/L (21-32); CHLORIDE LEVEL 104 MEQ/L (98-107); GLOMERULAR FILTRATION RATE > 60.0 (>49); GLUCOSE, FASTING 126 MG/DL (70-100); MAGNESIUM LEVEL 2.3 MG/DL (1.8-2.4); PHOSPHORUS LEVEL 4.2 MG/DL (2.5-4.9); POTASSIUM SERUM 3.9 MEQ/L (3.5-5.1); SODIUM LEVEL 140 MEQ/L (136-145)
== END ==
LOC: M LAB 09:36
DX: I50.32 Chronic diastolic (congestive) heart failure (principal)
CPT/HCPCS: 83735

== ENCOUNTER → 2018-01-19 | Outpatient (CLI) | payer MEDICARE, MEDICAID ==
[2018-01-19 14:37] LABS: LIPASE 107 U/L (73-393)
[2018-01-19 14:37] LABS: AMYLASE 26 U/L (25-115)
== END ==
LOC: M RAD 09:34
DX: R10.84 Generalized abdominal pain (principal)
CPT/HCPCS: 74019

== ENCOUNTER 2018-01-20 14:11 | Emergency (ER) | payer MEDICARE, MEDICAID ==
[2018-01-20] MEDS: NS 1,000 ML IV (17:22)
[2018-01-20] MEDS: METOCLOPRAMIDE INJ 10MG/2ML VIAL (J2765) IV (17:22)
[2018-01-20 17:30] LABS: BASO % 0.2 % (0.0-1.0); EOS # 0.1 10^3/uL (0.0-0.50); EOS % 1.1 % (0.0-3.0); HEMOGLOBIN 15.2 g/dl (14.0-18.0); IMMATURE GRANULOCYTE % 0.2 % (0-3.0); LYMPH # 1.7 10^3/uL (1.5-4.5); LYMPH % 20.5 % (24.0-44.0); MEAN CORPUSCULAR HEMOGLOBIN 32.1 pg (27.0-33.0); MEAN CORPUSCULAR HGB CONC 34.5 g/dl (32.0-36.5); MEAN CORPUSCULAR VOLUME 92.8 fl (80.0-96.0); MONO # 0.8 10^3/uL (0.0-0.8); MONO % 9.7 % (0.0-5.0); NEUTROPHILS # 5.6 10^3/uL (1.8-7.7); NEUTROPHILS % 68.3 % (36.0-66.0); PLATELET COUNT, AUTOMATED 189 10^3/uL (150-450); RED BLOOD COUNT 4.74 10^6/uL (4.30-6.10); RED CELL DISTRIBUTION WIDTH 13.2 % (11.5-14.5); WHITE BLOOD COUNT 8.2 10^3/uL (4.0-10.0)
[2018-01-20 17:58] LABS: ALBUMIN/GLOBULIN RATIO 0.98 (1.00-1.93); ALKALINE PHOSPHATASE 79 U/L (45-117); ALT/SGPT 19 U/L (12-78); AMYLASE 27 U/L (25-115); ANION GAP 11 MEQ/L (8-16); AST/SGOT 21 U/L (7-37); BILIRUBIN,DIRECT 0.5 MG/DL (0.0-0.2); BILIRUBIN,TOTAL 1.4 MG/DL (0.2-1.0); BLOOD UREA NITROGEN 37 MG/DL (7-18); C REACTIVE PROTEIN QUANTITATIV 6.26 MG/DL (0.00-0.30); CARBON DIOXIDE LEVEL 29 MEQ/L (21-32); CHLORIDE LEVEL 95 MEQ/L (98-107); CK-MB VALUE MASS 2.9 NG/ML (0.0-3.6); CPK CREATINE PHOSPHOKINASE 193 U/L (39-308); CREATININE FOR GFR 1.41 MG/DL (0.70-1.30); GLOMERULAR FILTRATION RATE 53.7 (>49); GLUCOSE, FASTING 137 MG/DL (70-100); LIPASE 96 U/L (73-393); POTASSIUM SERUM 3.5 MEQ/L (3.5-5.1); SODIUM LEVEL 135 MEQ/L (136-145); TOTAL PROTEIN 8.1 GM/DL (6.4-8.2); TROPONIN I < 0.02 NG/ML (< 0.10)
== END 2018-01-20 18:46 | disposition home or self-care (01) ==
LOC: M ED 14:11
DX: K80.20 Calculus of gallbladder without cholecystitis without obstruction (principal); R11.2 Nausea with vomiting, unspecified; E11.9 Type 2 diabetes mellitus without complications; I11.9 Hypertensive heart disease without heart failure; I25.10 Atherosclerotic heart disease of native coronary artery without angina pectoris; E78.00 Pure hypercholesterolemia, unspecified; F32.9 Major depressive disorder, single episode, unspecified; F41.9 Anxiety disorder, unspecified; K57.92 Diverticulitis of intestine, part unspecified, without perforation or abscess without bleeding; Z98.84 Bariatric surgery status; Z87.442 Personal history of urinary calculi; Z87.19 Personal history of other diseases of the digestive system; Z95.810 Presence of automatic (implantable) cardiac defibrillator; Z79.899 Other long term (current) drug therapy; Z79.84 Long term (current) use of oral hypoglycemic drugs; Z79.01 Long term (current) use of anticoagulants
CPT/HCPCS: J2765

== ENCOUNTER 2018-03-15 05:58 | Day surgery (SDC) | payer MEDICARE, MEDICAID ==
[2018-03-15] MEDS ORDERED: LR 1,000 ML IV ×2 (06:15→10:30)
[2018-03-15 06:46] LABS: POTASSIUM SERUM 4.8 MEQ/L (3.5-5.1)
[2018-03-15 06:53] LABS: BEDSIDE GLUCOSE 146 MG/DL (80-115)
[2018-03-15] MEDS ORDERED: LIDOCAINE 2% INJ 100 MG/5 ML SDV (FOR ANES.) As Ordered (07:51)
[2018-03-15] MEDS ORDERED: PROPOFOL 200 MG/20 ML VIAL As Ordered (07:51)
[2018-03-15] MEDS ORDERED: ONDANSETRON 4MG/2ML VIAL (J2405) As Ordered (07:51)
[2018-03-15] MEDS ORDERED: ETOMIDATE INJ 20MG/10ML VIAL As Ordered (07:51)
[2018-03-15] MEDS ORDERED: METOCLOPRAMIDE INJ 10MG/2ML VIAL (J2765) As Ordered (07:51)
[2018-03-15] MEDS ORDERED: MIDAZOLAM INJ 2 MG/2 ML VIAL (J2250) As Ordered (07:51)
[2018-03-15] MEDS ORDERED: ROCURONIUM BROMIDE 50 MG/5 ML VIAL As Ordered ×2 (07:51→08:19)
[2018-03-15] MEDS ORDERED: fentaNYL 250 MCG/5 ML INJECTION (J3010) As Ordered (07:51)
[2018-03-15] MEDS ORDERED: GLYCOPYRROLATE INJ 0.2 MG/ML 2 ML VIAL As Ordered ×2 (07:52)
[2018-03-15] MEDS ORDERED: NEOSTIGMINE 10 MG/10 ML VIAL (J2710) As Ordered (07:52)
[2018-03-15] MEDS ORDERED: PHENYLephrine HCL 500 MCG/5 ML (100MCG/ML) SYRINGE (J2370) As Ordered ×2 (08:02)
[2018-03-15] MEDS ORDERED: dexameTHASONE 4 MG/ML 1ML VIAL (J1100) As Ordered (08:03)
[2018-03-15] MEDS ORDERED: DESFLURANE 240 ML INHALANT As Ordered (09:30)
[2018-03-15] MEDS: BUPIVACAINE HCL 0.25% 30 ML VIAL As Ordered (09:50)
[2018-03-15] MEDS: PERCOCET 5MG/325MG TAB PO (10:25)
[2018-03-15] MEDS ORDERED: NORCO, ANEXSIA 5/325MG TABLET (HYDROcodone/ACETAMINOPHEN) PO (10:30)
[2018-03-15] MEDS ORDERED: MORPHINE 10 MG/ML 1ML VIAL (J2270) IV (10:30)
[2018-03-15] MEDS ORDERED: ONDANSETRON 4MG/2ML VIAL (J2405) IV (10:30)
[2018-03-15] MEDS ORDERED: ACETAMINOPHEN TAB 650MG DOSE (2X325MG) PO (10:30)
[2018-03-15] MEDS ORDERED: fentaNYL 100 MCG/2 ML INJECTION (J3010) IV (10:30)
[2018-03-15] MEDS: TORSEMIDE 10 MG TABLET PO (14:33)
[2018-03-18 08:27] LABS: BEDSIDE GLUCOSE 202 MG/DL (80-115)
== END 2018-03-15 15:24 | disposition home or self-care (01) ==
LOC: M SDC 05:58
DX: K80.18 Calculus of gallbladder with other cholecystitis without obstruction (principal); G47.30 Sleep apnea, unspecified; Z95.810 Presence of automatic (implantable) cardiac defibrillator; Z79.02 Long term (current) use of antithrombotics/antiplatelets; Z87.891 Personal history of nicotine dependence; Z98.84 Bariatric surgery status
CPT/HCPCS: 47562

== ENCOUNTER → 2018-03-30 | Outpatient (CLI) | payer MEDICARE, MEDICAID ==
[2018-03-30 15:29] LABS: ALBUMIN 3.6 GM/DL (3.2-5.2); ANION GAP 6 MEQ/L (8-16); BLOOD UREA NITROGEN 19 MG/DL (7-18); CALCIUM LEVEL 8.2 MG/DL (8.8-10.2); CARBON DIOXIDE LEVEL 30 MEQ/L (21-32); CHLORIDE LEVEL 106 MEQ/L (98-107); CREATININE FOR GFR 1.13 MG/DL (0.70-1.30); GLOMERULAR FILTRATION RATE > 60.0 (>49); GLUCOSE, FASTING 151 MG/DL (70-100); MAGNESIUM LEVEL 2.1 MG/DL (1.8-2.4); PHOSPHORUS LEVEL 3.9 MG/DL (2.5-4.9); POTASSIUM SERUM 3.8 MEQ/L (3.5-5.1); SODIUM LEVEL 142 MEQ/L (136-145)
== END ==
LOC: M LAB 14:16
DX: I50.32 Chronic diastolic (congestive) heart failure (principal); I47.2 Ventricular tachycardia
CPT/HCPCS: 83735

== ENCOUNTER → 2018-05-11 | Outpatient (CLI) | payer MEDICARE, MEDICAID | LOC: M SLEEP 19:28 | DX: G47.30 Sleep apnea, unspecified (principal) | CPT/HCPCS: 95811 ==

== ENCOUNTER → 2018-06-16 | Outpatient (CLI) | payer MEDICARE, MEDICAID ==
[2018-06-16 09:18] LABS: ANION GAP 10 MEQ/L (8-16); BLOOD UREA NITROGEN 25 MG/DL (7-18); CALCIUM LEVEL 8.2 MG/DL (8.8-10.2); CARBON DIOXIDE LEVEL 28 MEQ/L (21-32); CHLORIDE LEVEL 103 MEQ/L (98-107); GLOMERULAR FILTRATION RATE > 60.0 (>49); GLUCOSE, FASTING 193 MG/DL (70-100); MAGNESIUM LEVEL 1.8 MG/DL (1.8-2.4); POTASSIUM SERUM 3.3 MEQ/L (3.5-5.1); SODIUM LEVEL 141 MEQ/L (136-145)
== END ==
LOC: M LAB 08:25
DX: I50.32 Chronic diastolic (congestive) heart failure (principal); I48.2 Chronic atrial fibrillation
CPT/HCPCS: 83735

== ENCOUNTER → 2018-07-21 | Outpatient (CLI) | payer MEDICARE, MEDICAID ==
[2018-07-21 10:41] LABS: ANION GAP 7 MEQ/L (8-16); BLOOD UREA NITROGEN 27 MG/DL (7-18); CALCIUM LEVEL 8.8 MG/DL (8.8-10.2); CARBON DIOXIDE LEVEL 29 MEQ/L (21-32); CHLORIDE LEVEL 103 MEQ/L (98-107); CREATININE FOR GFR 1.14 MG/DL (0.70-1.30); GLOMERULAR FILTRATION RATE > 60.0 (>49); GLUCOSE, FASTING 176 MG/DL (70-100); POTASSIUM SERUM 4.2 MEQ/L (3.5-5.1); SODIUM LEVEL 139 MEQ/L (136-145)
[2018-07-21 15:56] LABS: MAGNESIUM LEVEL 2.2 MG/DL (1.8-2.4)
== END ==
LOC: M LAB 08:59
DX: I47.2 Ventricular tachycardia (principal)
CPT/HCPCS: 83735

== ENCOUNTER 2018-10-30 10:36 | Emergency (ER) | payer MEDICARE, MEDICAID ==
[2018-10-30] MEDS: OXYMETAZOLINE NASAL SPRAY (AFRIN) (12:15)
== END 2018-10-30 12:59 | disposition home or self-care (01) ==
LOC: M ED 10:36
DX: R04.0 Epistaxis (principal); S00.81XA Abrasion of other part of head, initial encounter; S60.511A Abrasion of right hand, initial encounter; S60.512A Abrasion of left hand, initial encounter; W10.1XXA Fall (on)(from) sidewalk curb, initial encounter; Y92.89 Other specified places as the place of occurrence of the external cause; I10 Essential (primary) hypertension; E66.9 Obesity, unspecified; Z79.899 Other long term (current) drug therapy; Z79.84 Long term (current) use of oral hypoglycemic drugs; Z79.4 Long term (current) use of insulin
CPT/HCPCS: 70450

== ENCOUNTER 2018-12-06 06:42 | Day surgery (SDC) | payer MEDICARE, MEDICAID ==
[~2018-12-06] VITALS: Ht 188 cm; Wt 127.0 kg
[~2018-12-06 06:42] MED LIST changes: +ACET30TAB PO; +ANOR1AER INH; +CALC600T3 PO; +CARV12.5 PO; +CITA-231 PO; +FISH7.5C PO; +INSUDET SC; +METF10004 PO; +METO1TAB33 PO; +MULTTAB PO; +MUPI2OI TOP; +MYRB50TA PO; +NS 1,000 ML IV ONE; +POTA20TA6 PO; +PRAV80TA2 PO; +TIGA300C2 PO; +TORS10TA3 PO; +VALS1TAB47 PO; +VITA-112 PO; +XARE20TA PO; +ZYLO300T6 PO
[2018-12-06] MEDS ORDERED: PROPOFOL 200 MG/20 ML VIAL As Ordered ONE ×3 (08:21→09:19)
--- NOTE | 2018-12-06 09:35 | ROOR ---
Patient Name: Kwabena Hoyos Procedure Date: 12/06/2018 8:35 AM Date of : 1950 Age: 68 Room: [facility] Gender: Male Note Status: Finalized Procedure: Colonoscopy Indications: High risk colon cancer surveillance: Personal history of non-advanced adenoma, Last colonoscopy 5 years ago Providers: Gabe Carson MD Referring MD: ADONAY ALVARES JR, MD Requesting Provider: Medicines: Monitored Anesthesia Care Complications: No immediate complications. Procedure: Pre-Anesthesia Assessment: - Prior to the procedure, a History and Physical was performed, and patient medications and allergies were reviewed. The patient is competent. The risks and benefits of the procedure and the sedation options and risks were discussed with the patient. All questions were answered and informed consent was obtained. Patient identification and proposed procedure were verified by the physician, the nurse and the anesthesiologist in the procedure room. Mental Status Examination: alert and oriented. CV Examination: regular rate and rhythm. Prophylactic Antibiotics: The patient does not require prophylactic antibiotics. Prior Anticoagulants: The patient has taken Xarelto (rivaroxaban), last dose was 4 days prior to procedure. ASA Grade Assessment: III - A patient with severe systemic disease. After reviewing the risks and benefits, the patient was deemed in satisfactory condition to undergo the procedure. The anesthesia plan was to use monitored anesthesia care (MAC). Immediately prior to administration of medications, the patient was re-assessed for adequacy to receive sedatives. The heart rate, respiratory rate, oxygen saturations, blood pressure, adequacy of pulmonary ventilation, and response to care were monitored throughout the procedure. The physical status of the patient was re-assessed after the procedure. The Colonoscope was introduced through the anus and advanced to the hepatic flexure. The colonoscopy was unusually difficult due to poor bowel prep and a redundant colon. Successful completion of the procedure was aided by changing the patient to a supine position. Findings: The perianal and digital rectal examinations were normal. The transverse colon was significantly tortuous. Many medium-mouthed diverticula were found in the entire colon. Impression: - Tortuous colon. - Diverticulosis in the entire examined colon. - No specimens collected. Recommendation: - Discharge patient to home. - Resume previous diet. - Continue present medications. Gabe Carson MD Gabe Carson MD 12/06/2018 9:34:41 AM This report has been signed electronically. Number of Addenda: 0 Note Initiated On: 12/06/2018 8:35 AM Estimated Blood Loss: Estimated blood loss: none.
[2018-12-06 09:55] VITALS: BP 158/80
== END 2018-12-06 10:55 | disposition home or self-care (01) ==
LOC: M OPP 06:42
PROVIDERS: ATTEND Surgery
DX: Z86.010 Personal history of colon polyps (principal); Q43.8 Other specified congenital malformations of intestine; Z80.0 Family history of malignant neoplasm of digestive organs; G47.30 Sleep apnea, unspecified; I11.0 Hypertensive heart disease with heart failure; E10.9 Type 1 diabetes mellitus without complications; I50.9 Heart failure, unspecified; Z79.4 Long term (current) use of insulin; Z79.899 Other long term (current) drug therapy; Z98.84 Bariatric surgery status; Z87.892 Personal history of anaphylaxis; Z95.810 Presence of automatic (implantable) cardiac defibrillator

== ENCOUNTER → 2019-01-23 | Outpatient (CLI) | payer MEDICARE, MEDICAID ==
[~2019-01-23] MED LIST changes: -NS 1,000 ML IV ONE
[2019-01-23 10:42] LABS: BLOOD UREA NITROGEN 31 MG/DL (7-18); CALCIUM LEVEL 8.2 MG/DL (8.8-10.2); CARBON DIOXIDE LEVEL 25 MEQ/L (21-32); CHLORIDE LEVEL 110 MEQ/L (98-107); CREATININE FOR GFR 1.09 MG/DL (0.70-1.30); GLOMERULAR FILTRATION RATE > 60.0 (>49); GLUCOSE, FASTING 86 MG/DL (70-100); MAGNESIUM LEVEL 1.8 MG/DL (1.8-2.4); POTASSIUM SERUM 4.5 MEQ/L (3.5-5.1); SODIUM LEVEL 143 MEQ/L (136-145)
== END ==
LOC: M LAB 08:41
PROVIDERS: ATTEND Physician Assistant
DX: I50.32 Chronic diastolic (congestive) heart failure (principal); I48.2 Chronic atrial fibrillation

== ENCOUNTER → 2019-07-25 | Outpatient (CLI) | payer MEDICARE, MEDICAID ==
[~2019-07-25] MED LIST changes: -/OXYB10XLT PO; -/VITACHEW PO; +ACET-716 PO; -ACET30TAB PO; -CITA-231 PO; +CITA40TA6 PO; +DITR1TAB PO; +E-Z-GAS II EFFERVESCENT PACKET (SODIUM BICARB./CITRIC ACID/SIMETHICONE) As Ordered ONE; +E-Z-HD 98% w/w 340GM SUSP BTL As Ordered ONE; +E-Z-PAQUE 96% w/w SUSP 176GM BTL As Ordered ONE; +FLIN1CHW3 PO; -VALS1TAB47 PO; +VALS1TAB67 PO
--- NOTE | 2019-07-25 17:06 | REP ---
AIR CONTRAST UPPER GI AND ESOPHAGRAM The procedure was performed under the direct supervision of Dr. Rivers. The images were reviewed with Dr. Rivers. The abdominal print production associate film shows no organomegaly or pathological masses. The intestinal gas pattern is nonspecific. There are surgical clips noted in the right upper quadrant. Single view PA chest x-ray is submitted as a print production associate film. There is cardiomegaly. There is a dual lead pacemaker in place. 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 There is linear fibrosis in the left lower lung. There are surgical clips noted in the epigastric region. Liquid barium and gas producing granules and given in the erect position as well as liquid barium in the prone oblique position in order to perform a double contrast esophagram and upper GI examination. The oral and pharyngeal stages of deglutition are unremarkable. There are esophageal transport there are tertiary waves demonstrated. There is no esophagitis stricture mucosal ring or hiatal hernia. There is gastroesophageal reflux demonstrated to above the level of the myra. There are postsurgical changes of the stomach consistent with the patient's history of gastric bypass. Contrast passes through the pouch and anastomoses without delay. There is no evidence of stricture or obstruction. There is no evidence of gastritis neoplasm or ulcer disease. The visualized portion of the proximal small bowel appears normal in course and caliber. Impression 1. Tertiary waves. 2. There is gastroesophageal reflux demonstrated to above the level of the myra. 3. Postsurgical changes of the stomach consistent with the patient's history of gastric bypass. 1.1 minutes of fluoroscopy time was utilized for this procedure. Reviewed by EJ Olvera 07/25/2019 04:24 P Electronically Signed by Tyson Rivers MD 07/25/2019 04:58 P
== END ==
LOC: M RAD 08:58
PROVIDERS: ATTEND Nurse Practitioner Adult Health
DX: R13.10 Dysphagia, unspecified (principal)

== ENCOUNTER → 2019-12-27 | Outpatient (REF) | payer MEDICARE, MEDICAID ==
[~2019-12-27] MED LIST changes: -E-Z-GAS II EFFERVESCENT PACKET (SODIUM BICARB./CITRIC ACID/SIMETHICONE) As Ordered ONE; -E-Z-HD 98% w/w 340GM SUSP BTL As Ordered ONE; -E-Z-PAQUE 96% w/w SUSP 176GM BTL As Ordered ONE
[2019-12-27 14:54] LABS: INFLUENZA A AMPLIFICATION NEGATIVE (NEGATIVE); INFLUENZA B AMPLIFICATION NEGATIVE (NEGATIVE)
== END ==
LOC: M LAB REF 12:42
PROVIDERS: ATTEND Nurse Practitioner Adult Health
DX: J06.9 Acute upper respiratory infection, unspecified (principal)

== ENCOUNTER 2020-02-27 13:51 | Inpatient (IN) | payer MEDICARE, MEDICAID ==
[~2020-02-27] VITALS: Ht 188 cm; Wt 121.6 kg
[2020-02-27] MEDS ORDERED: D3 +TAB PO (14:16)
[2020-02-27] MEDS ORDERED: MULTCAP PO (14:16)
--- NOTE | 2020-02-27 15:19 | REP ---
CHEST, SINGLE VIEW: Single view of the chest is performed and compared to a prior study of 11/04/2017. There is mild cardiomegaly again noted. There is linear fibroatelectatic change in each lung base. No acute infiltrate is seen. There is calcification and tortuosity of the thoracic aorta. Left pacemaker is again noted. IMPRESSION: Mild cardiomegaly. No acute infiltrate. Electronically Signed by Jules Whitman MD 02/27/2020 03:34 P
[2020-02-27 15:23] LABS: BASO % 0.3 % (0.0-1.0); EOS # 0.1 10^3/uL (0.0-0.5); EOS % 0.8 % (0.0-3.0); HEMATOCRIT 40.4 % (42.0-52.0); HEMOGLOBIN 13.5 g/dl (13.5-17.5); LYMPH # 1.4 10^3/uL (1.5-5.0); LYMPH % 21.6 % (24.0-44.0); MEAN CORPUSCULAR HEMOGLOBIN 32.5 pg (27.0-33.0); MEAN CORPUSCULAR HGB CONC 33.4 g/dl (32.0-36.5); MEAN CORPUSCULAR VOLUME 97.3 fl (80.0-96.0); MONO # 0.5 10^3/uL (0.0-0.8); MONO % 7.2 % (0.0-5.0); NEUTROPHILS # 4.6 10^3/uL (1.5-8.5); NEUTROPHILS % 69.8 % (36.0-66.0); PLATELET COUNT, AUTOMATED 185 10^3/uL (150-450); RED BLOOD COUNT 4.15 10^6/uL (4.30-6.10); WHITE BLOOD COUNT 6.5 10^3/uL (4.0-10.0)
[2020-02-27 15:38] LABS: INR 1.92; PARTIAL THROMBOPLASTIN TIME 34.9 SECONDS (25.0-38.4); PROTHROMBIN TIME 21.7 SECONDS (11.8-14.0)
[2020-02-27 15:54] LABS: ALBUMIN 3.7 GM/DL (3.2-5.2); ALT/SGPT 28 U/L (12-78); BILIRUBIN,TOTAL 0.7 MG/DL (0.2-1.0); BLOOD UREA NITROGEN 24 MG/DL (7-18); C REACTIVE PROTEIN QUANTITATIV < 0.30 MG/DL (0.00-0.30); CALCIUM LEVEL 8.6 MG/DL (8.8-10.2); CARBON DIOXIDE LEVEL 25 MEQ/L (21-32); CHLORIDE LEVEL 107 MEQ/L (98-107); CK-MB VALUE MASS 1.6 NG/ML (<3.6); CPK CREATINE PHOSPHOKINASE 138 U/L (39-308); CREATININE FOR GFR 1.07 MG/DL (0.70-1.30); GLOMERULAR FILTRATION RATE > 60.0 (>49); GLUCOSE, FASTING 95 MG/DL (70-100); MB/CK RELATIVE INDEX 1.16 (< OR =4); POTASSIUM SERUM 4.6 MEQ/L (3.5-5.1); SODIUM LEVEL 139 MEQ/L (136-145); TOTAL PROTEIN 6.9 GM/DL (6.4-8.2); TROPONIN I < 0.02 NG/ML (< 0.10)
[2020-02-27] MEDS ORDERED: LIDOCAINE 2% 5ML JELLY UROJET TOP ONE (16:15)
[2020-02-27] MEDS ORDERED: ISOVUE-370 76% 100ML VIAL (Q9967) As Ordered ONE (16:23)
--- NOTE | 2020-02-27 18:48 | REPVR ---
PROCEDURE INFORMATION: Exam: CT Head Without Contrast Exam date and time: 02/27/2020 6:20 PM Age: 69 years old Clinical indication: Pain; Headache; Additional info: Dizziness TECHNIQUE: Imaging protocol: Computed tomography of the head without contrast. Radiation optimization: All CT scans at this facility use at least one of these dose optimization techniques: automated exposure control; mA and/or kV adjustment per patient size (includes targeted exams where dose is matched to clinical indication); or iterative reconstruction. COMPARISON: CT Head without contrast 10/30/2018 11:07 AM FINDINGS: Brain: Mild volume loss. No acute intracranial hemorrhage, midline shift or mass effect. Ventricles: No hydrocephalus. Bones/joints: Unremarkable. No acute fracture. Sinuses: Visualized sinuses are unremarkable. No fluid levels. Mastoid air cells: Visualized mastoid air cells are well aerated. Soft tissues: Unremarkable. IMPRESSION: No acute intracranial abnormality. Electronically signed by: Carlos Mcfadden On 02/27/2020 18:47:56 PM
--- NOTE | 2020-02-27 18:50 | REPVR ---
PROCEDURE INFORMATION: Exam: CT Angiography Neck With Contrast Exam date and time: 02/27/2020 6:20 PM Age: 69 years old Clinical indication: Pain; Headache; Additional info: Dizziness TECHNIQUE: Imaging protocol: Computed tomography angiography of the neck with intravenous contrast. 3D rendering: MIP and/or 3D reconstructed images were created by the technologist. Radiation optimization: All CT scans at this facility use at least one of these dose optimization techniques: automated exposure control; mA and/or kV adjustment per patient size (includes targeted exams where dose is matched to clinical indication); or iterative reconstruction. Contrast material: ISO 370; Contrast volume: 100 ml; Contrast route: IV; COMPARISON: No relevant prior studies available. FINDINGS: VASCULATURE: Right common carotid artery: Mild calcification at the right common carotid bifurcation without stenosis. Right internal carotid artery: No stenosis of the extracranial segment. No dissection or occlusion. Right external carotid artery: No occlusion or stenosis of the origin. Right vertebral artery: No stenosis. No dissection or occlusion. Left common carotid artery: Mild calcification at the left common carotid bifurcation without stenosis. Left internal carotid artery: No stenosis of the extracranial segment. No dissection or occlusion. Left external carotid artery: No occlusion or stenosis of the origin. Left vertebral artery: Left vertebral artery is dominant. NECK: Bones/joints: There are degenerative changes involving the spine. Soft tissues: Normal. No significant soft tissue swelling. IMPRESSION: No stenosis (0%) or dissection. REFERENCES: NASCET CRITERIA. The degree of internal carotid artery stenosis is based on NASCET criteria. Normal is no stenosis. Mild is less than 50% stenosis. Moderate is 50-69% stenosis. Severe is 70% to 99% stenosis. Total occlusion is no detectable patent lumen. Electronically signed by: Carlos Mcfadden On 02/27/2020 18:50:08 PM
--- NOTE | 2020-02-27 18:53 | REPVR ---
PROCEDURE INFORMATION: Exam: CT Angiography Head With Contrast Exam date and time: 02/27/2020 6:20 PM Age: 69 years old Clinical indication: Pain; Headache; Additional info: Dizziness TECHNIQUE: Imaging protocol: Computed tomography angiography of the head with intravenous contrast. 3D rendering: MIP and/or 3D reconstructed images were created by the technologist. Radiation optimization: All CT scans at this facility use at least one of these dose optimization techniques: automated exposure control; mA and/or kV adjustment per patient size (includes targeted exams where dose is matched to clinical indication); or iterative reconstruction. Contrast material: ISO 370; Contrast volume: 100 ml; Contrast route: IV; COMPARISON: CT Head without contrast 10/30/2018 11:07 AM FINDINGS: Right internal carotid artery: Mild calcification involving the right carotid siphon without stenosis. Right anterior cerebral artery: No occlusion or significant stenosis. No aneurysm. Right middle cerebral artery: No occlusion or significant stenosis. No aneurysm. Right posterior cerebral artery: No occlusion or significant stenosis. No aneurysm. Right vertebral artery: No occlusion or significant stenosis. No aneurysm. Left internal carotid artery: Intracranial segment is patent with no significant stenosis or occlusion. No aneurysm. Left anterior cerebral artery: No occlusion or significant stenosis. No aneurysm. Left middle cerebral artery: No occlusion or significant stenosis. No aneurysm. Left posterior cerebral artery: No occlusion or significant stenosis. No aneurysm. Left vertebral artery: Left vertebral artery is dominant. [id number] calcification involving the left vertebral artery without stenosis. Basilar artery: No occlusion or significant stenosis. No aneurysm. IMPRESSION: No hemodynamically significant stenosis or large vessel occlusion. Electronically signed by: Carlos Mcfadden On 02/27/2020 18:52:46 PM
[2020-02-27] MEDS ORDERED: METF10004 PO (19:32)
[2020-02-27] MEDS ORDERED: DEXTROSE 50% 50 ML SYRINGE IV PRN (20:15)
[2020-02-27] MEDS ORDERED: GLUCAGON FOR INJ 1 MG VIAL (J1610) SC PRN (20:15)
[2020-02-27] MEDS ORDERED: ACETAMINOPHEN TAB 650MG DOSE (2X325MG) PO PRN (20:15)
[2020-02-27] MEDS ORDERED: GLUCOSE 4 GM CHEW TABLET PO PRN (20:15)
[2020-02-27] MEDS ORDERED: MECLIZINE 25 MG TABLET PO PRN (21:00)
[2020-02-27] MEDS: HumaLOG INSULIN (NovoLOG) PER UNIT SC SCH (21:00)
--- NOTE | 2020-02-27 21:12 | HPEPDOC ---
[facility] Medical History & Physical Date of Admission Feb 27, 2020 Date of Service: Feb 27, 2020 Primary Care Physician: Felisha Segura Attending Physician: JEWEL ZHAO MD History and Physical PRIMARY CARE PROVIDER: Felisha Segura ATTENDING: Dr. Crocker CHIEF COMPLAINT: Dizziness HISTORY OF PRESENT ILLNESS: Patient is a 69 year old male presenting with chief complaint of dizziness. Patient relays a two-week history of gradually worsening dizziness on exertion. He states that the past 2 weeks when he stands up and walks he will become dizzy and it is only relieved with sitting down. Recently the dizziness has been becoming worse and he has had associated chest pressure. He states the dizziness lasts up to 30 minutes and experiences relief from the chest pressure with rest. He came into the emergency department today because he went for a walk outside and felt like he was going to fall over because the dizziness was so severe. This has never happened before. He denies any recent medication changes, does not check BP at home. He last saw his automotive internet sales consultant, Mallory Crabtree (Dr. Bonilla/Ezekiel' office), 2 months ago and was told that no changes needed to be made to his medication regimen or to his AICD/pacemaker. He denies any fevers, chills, recent sick contacts, cough, chest pain, palpitations, AICD firing, difficulty breathing, orthopnea, lower extremity edema. Initial workup in the emergency department was negative or non- contributory CBC, CMP, troponin, negative orthostatics, head CT, CTA, neck CTA, chest x-ray. Patient was tested for coven 19 in the emergency department as provider related experience with the illness and seeing dizziness as being the only presenting sign/symptoms. PAST MEDICAL HISTORY: Hypertension Type 2 diabetes Hypercholesterolemia Paroxysmal atrial fibrillation Diastolic congestive heart failure History of sustained ventricular tachycardia Depression History of suicide attempt PAST SURGICAL HISTORY: Dual-chamber auto cardioverter/defibrillator pulse generator (02/2013) Gastric bypass SOCIAL HISTORY: Denies alcohol use, Quit tobacco products in 1981, denies any marijuana, heroin, cocaine, or PCP use. 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 One cat at home. Occupational exposures? None. No sick contacts, is a resid ent at [facility], however he has remained at home last 3-4 weeks. No Recent travel/travel history. FAMILY HISTORY: No family history of dizziness. Hx of colorectal cancer in both parents. ALLERGIES: Please see below. REVIEW OF SYSTEMS: GENERAL: Denies fevers, chills, night sweats, hemoptysis HEENT: Denies headache, vision changes, hearing loss, sore throat. Admits to dizziness. CARDIOVASCULAR: Denies chest pain, palpitations, orthopnea. Admits to exertional chest pressure RESPIRATORY: Denies shortness of breath, wheezing, cough GASTROINTESTINAL: denies nausea, vomiting, abdominal pain, constipation, diarrhea, bloody stool GENITOURINARY: Denies dysuria,urinary urgency. Admits to single episode of hematuria. MUSCULOSKELETAL: Denies muscle/joint pain, weakness, stiffness NEUROLOGICAL: Denies any numbness/tingling, focal weakness, or syncope. HOME MEDICATIONS: Please see below. PHYSICAL EXAMINATION: Vitals: (see below) General: Well-appearing male who appears stated age in no acute distress, laying comfortably in bed. HEENT: Normocephalic, atraumatic. EOMI. No scleral icterus. Positive horizontal nystagmus. Moist mucous membranes. No pharyngeal erythema or uvular deviation. EACs clear, TMs normal bilaterally. Neck: No JVD, lymphadenopathy, or thyromegaly. Cardiac: Difficult to auscultate, but RRR, Normal S1 and S2, No murmurs, gallops, rubs. Pulm: Mildly diminished breath sounds bilaterally. Symmetric thorax. No wheezing, crackles, rhonchi Abd: Bowel Sounds present. Abdomen is soft, non-tender, non-distended. No guarding, rebound tenderness, or rigidity. Ext: No edema or cyanosis Neuro: Strength +5/5 BUE and BLE. CN 2-12 intact. F to N intact. negative pronator drift, negative babinski, negative heel-ribeiro. LABORATORY DATA: See below. IMAGIN02/27/20 chest x-ray: Mild cardiomegaly. No acute infiltrate. 02/27/20 CTA neck: No stenosis or dissection. 02/27/20 head CTA: No hemodynamically significant stenosis or large vessel occlusion. 02/27/[address]: No acute intracranial abnormality. EKG unchanged from baseline. MICROBIOLOGY: Please see below. ASSESSMENT/PLAN: #. Intractable Dizziness -Based on his history, negative lab work physical exam findings I have low suspicion for acute stroke as a potential cause. Given his history of cardiac issues, I do feel it is necessary to at least interrogate his pacemaker and order BNP, trend troponins to ensure he has no cardiogenic causes of his dizziness, although I still feel that these are less likely. -On my differential is some form of vestibular neuritis or inner ear inflammation given his complaint of vertigo and his horizontal nystagmus on exam. As such, I will start him on antivert, PT, OT to evaluate as well. #. Exertional dyspnea -In light of patient's hx of sustained Vtach, patient's AICD should be interrogated to ensure it is functioning properly. Day team to consider cardiology consult in AM for interrogation. -Will trend troponins, order BNP, and put in for echocardiogram as it is unclear the last time he had one done. #. Diastolic CHF - Repeating echo - Continue metoprolol, valsartan, torsemide, pravastatin - Continue mag and K replacement #. COVID-19 rule out -Patient without concerning s/s based on history/physical exam. However test was ordered by provider who has seen larger quantities of COVID, so for time being patient will be in isolation and on droplet precautions. #. Hematuria - Single episode of hematuria, will order PSA. His UA on admission was negative. Will need to f/u outpatient with urology. #. Hypertension - Currently patient's blood pressure is elevated, will continue home meds and will increase or change as appropriate. #. Paroxysmal Afib -Continue xarelto, metoprolol #. Type 2 diabetes -Stop metformin, will continue Levemir at half of home dose. Sliding scale, diabetic diet #. Overactive bladder -Continue myrbetriq #. Gout -Continue allopurinol #. Depression -Continue citalopram #. COPD -Controlled, will have patient start combivent in lieu of home anoro ellipta. -DVT prophy: Cheryle/Nel pretty HOSPITALIST ATTENDING ADDENDUM: I have independently interviewed and examined this patient at the bedside, and agree with the documentation above as written by my resident physician. The patient's questions have been answered satisfactorily. Vital Signs Vital Signs Date Time Temp Pulse Resp B/P (MAP) Pulse Ox O2 Delivery O2 Flow Rate FiO2 02/27/20 18:14 180/90 (120) 02/27/20 15:22 69 69 69 02/27/20 13:52 98.3 18 97 Room Air Laboratory Data Labs 24H Laboratory Tests 2 02/27/20 15:14: Immature Granulocyte % (Auto) 0.3, Neutrophils (%) (Auto) 69.8H, Lymphocytes (%) (Auto) 21.6L, Monocytes (%) (Auto) 7.2H, Eosinophils (%) (Auto) 0.8, Basophils (%) (Auto) 0.3, Neutrophils # (Auto) 4.6, Lymphocytes # (Auto) 1.4L, Monocytes # (Auto) 0.5, Eosinophils # (Auto) 0.1, Basophils # (Auto) 0.0, Nucleated Red Blood Cells % (auto) 0.0, Prothrombin Time 21.7H, Prothromb Time International Ratio 1.92, Activated Partial Thromboplast Time 34.9, Anion Gap 7L, Glomerular Filtration Rate > 60.0, Calcium Level 8.6L, Total Bilirubin 0.7, Aspartate Amino Transf (AST/SGOT) 30, Alanine Aminotransferase (ALT/SGPT) 28, Alkaline Phosphatase 71, Total Creatine Kinase 138, Creatine Kinase MB 1.6, Creatine Kinase MB Relative Index 1.16, Troponin I < 0.02, C-Reactive Protein, Quantitative < 0.30, Total Protein 6.9, Albumin 3.7, Albumin/Globulin Ratio 1.16 02/27/20 15:42: POC Lactate (Misc Panel) 1.68 02/27/20 16:02: Urine Color YELLOW, Urine Appearance CLEAR, Urine pH 5.0, Urine Specific [place] 1.008, Urine Protein NEGATIVE, Urine Glucose (UA) NEGATIVE, Urine Ketones NEGATIVE, Urine Blood NEGATIVE, Urine Nitrite NEGATIVE, Urine Bilirubin NEGATIVE, Urine Urobilinogen 0.2, Urine Leukocyte Esterase NEGATIVE, Urine WBC (Auto) 0, Urine RBC (Auto) 1, Urine Hyaline Casts (Auto) 8, Urine Bacteria (Auto) NEGATIVE, Urine Squamous Epithelial Cells 0, Urine Sperm (Auto) CBC/BMP Laboratory Tests 02/27/20 15:14 Microbiology Microbiology 02/27/20 Coronavirus COVID-19 PCR (MAIKOL), Received Pending Home Medications Scheduled Allopurinol (Zyloprim) 300 Mg Tab, 300 MG PO DAILY Calcium Carbonate (Calcium Carbonate) 600 Mg Tab, 600 MG PO DAILY Citalopram Hydrobromide (Citalopram HBr) 40 Mg Tab, 40 MG PO DAILY Ergocalciferol (Vitamin D2) (Vitamin D2) 50,000 Units Cap, 50,000 UNITS PO 1XWK SATUR Gabapentin (Neurontin) 300 Mg Cap, 300 MG PO TID Insulin Detemir (Levemir) 1 Units/0.01 Ml Susp, 18 UNITS SC QHS Magnesium Chloride (Mag64) 64 Mg Tabcr, 64 MG PO DAILY Metformin HCl (Metformin HCl) 1,000 Mg Tablet, 1,000 MG PO BID 2ND DOSE WITH EVENING MEAL Metoprolol Succinate (Metoprolol Succinate) 100 Mg Tab, 100 MG PO DAILY Mirabegron (Myrbetriq) 50 Mg Tab, 50 MG PO DAILY Multivitamin (Multivitamins) 1 Each Capsule, 1 CAP PO BID [place]-3/Dha/Epa/Fish Oil (Fish Oil EC 1,000 mg Softgel) 1 Cap Cap, 1,000 CAP PO TID Potassium Chloride (Potassium Chloride) 20 Meq Tab, 20 MEQ PO BID Pravastatin Sodium (Pravastatin Sodium) 80 Mg Tab, 80 MG PO QHS Rivaroxaban (Xarelto) 20 Mg Tab, 20 MG PO DAILY Semaglutide (Ozempic) 0.25 Mg/0.2 Ml Pen.injctr, 0.5 MG SC 1XWK MONDAYS Torsemide (Torsemide) 10 Mg Tab, 10 MG PO DAILY Umeclidinium Brm/Vilanterol Tr (Anoro Ellipta 62.5-25 Mcg INH) 1 Aer Aer, 1 PUFF INH DAILY Allergies Coded Allergies: No Known Allergies (Verified , 03/15/18) A-FIB/CHADSVASC A-FIB History Current/History of A-Fib/PAF?: Yes Current PO Anticoag Therapy: Yes Age/Risk Factor Scoring CHADSVASC: CHADSVASC Response (Comments) Value Age Risk Factor Age 65-74 years old 1 Gender Risk Factor Male 0 Hx of CHF Yes 1 Hx of HTN Yes 1 Hx of Stroke/TIA/or VTE No 0 Hx of Diabetes Yes 1 Hx of Vascular Disease Yes 1 Total 5 Treatment Treatment ordered: Rivaroxaban GME ATTESTATION GME ATTESTATION My faculty preceptor for this patient encounter was physically present during the encounter and was fully available. All aspects of the patient interview, examination, medical decision making process, and medical care plan development were reviewed and approved by the faculty preceptor. The faculty preceptor is aware and concurs with the plan as stated in the body of this note and will attest to such by his/her cosignature. TRISHA HERNANDEZ DO Feb 27, 2020 21:12 JEWEL ZHAO MD Feb 28, 2020 20:36
[2020-02-27 21:15] VITALS: BP 164/87
[2020-02-27] MEDS ORDERED: VITA50005 PO (21:29)
[2020-02-27] MEDS ORDERED: OZEM2INJ SC (21:30)
[2020-02-27] MEDS ORDERED: HEPARIN SOD (PORCINE) 5000UNITS/ML VIAL (J1644 PER 1000UNITS) SC SCH (22:00)
[2020-02-27 22:45] LABS: NT-PRO BNP 551 PG/ML (<125)
[2020-02-27] MEDS: GABAPENTIN 300 MG CAP PO SCH (23:21)
[2020-02-27] MEDS: PRAVASTATIN 20 MG TAB PO SCH (23:21)
[2020-02-27] MEDS: POTASSIUM CHLORIDE 10 MEQ SR TABLET PO SCH (23:21)
[2020-02-28] VITALS (8 sets, daily range): BP systolic 117–153; BP diastolic 78–103
[2020-02-28 05:31] LABS: HEMATOCRIT 39.6 % (42.0-52.0); HEMOGLOBIN 13.4 g/dl (13.5-17.5); MEAN CORPUSCULAR HEMOGLOBIN 33.1 pg (27.0-33.0); MEAN CORPUSCULAR HGB CONC 33.8 g/dl (32.0-36.5); MEAN CORPUSCULAR VOLUME 97.8 fl (80.0-96.0); PLATELET COUNT, AUTOMATED 172 10^3/uL (150-450); RED BLOOD COUNT 4.05 10^6/uL (4.30-6.10)
[2020-02-28 05:58] LABS: BLOOD UREA NITROGEN 22 MG/DL (7-18); CALCIUM LEVEL 8.7 MG/DL (8.8-10.2); CARBON DIOXIDE LEVEL 28 MEQ/L (21-32); CHLORIDE LEVEL 107 MEQ/L (98-107); CREATININE FOR GFR 1.13 MG/DL (0.70-1.30); GLOMERULAR FILTRATION RATE > 60.0 (>49); GLUCOSE, FASTING 105 MG/DL (70-100); MAGNESIUM LEVEL 2.2 MG/DL (1.8-2.4); POTASSIUM SERUM 4.1 MEQ/L (3.5-5.1); SODIUM LEVEL 140 MEQ/L (136-145)
[2020-02-28 07:50] LABS: CK-MB VALUE MASS 1.2 NG/ML (<3.6); CPK CREATINE PHOSPHOKINASE 79 U/L (39-308); MB/CK RELATIVE INDEX 1.52 (< OR =4); TROPONIN I < 0.02 NG/ML (< 0.10)
[2020-02-28] MEDS: HumaLOG INSULIN (NovoLOG) PER UNIT SC SCH ×4 (08:37→20:54)
[2020-02-28] MEDS: GABAPENTIN 300 MG CAP PO SCH ×3 (08:37→20:54)
[2020-02-28] MEDS: METOPROLOL SUCC (TopROL XL) 100MG *XL* TAB PO SCH (08:38)
[2020-02-28] MEDS: allopurinoL 300 MG TAB PO SCH (08:38)
[2020-02-28] MEDS: CitaloPRAM (CeleXA) 20 MG TAB PO SCH (08:38)
[2020-02-28] MEDS: POTASSIUM CHLORIDE 10 MEQ SR TABLET PO SCH ×2 (08:38→20:54)
[2020-02-28] MEDS: RIVAROXABAN 20 MG TAB (XARELTO) PO SCH (08:38)
[2020-02-28] MEDS: TORSEMIDE 10 MG TABLET PO SCH (08:38)
[2020-02-28] MEDS: COMBIVENT RESPIMAT 100-20MCG INHALER 4GM INH SCH ×2 (10:31→20:00)
--- NOTE | 2020-02-28 14:20 | IPNPDOC ---
Text Note Date of Service The patient was seen on 02/28/20. NOTE S: Pt examined at bedside. Reports he is asymptomatic this morning. No chest pain, shortness of breath, lightheadedness, dizziness, nausea, vomiting, even when moving from bed to the bathroom. Denies any further episodes of hematuria. Otherwise stable and has no complaints this morning. No events on telemetry. PE: Vitals: see below General: NAD, A&Ox3, resting comfortably HEENT: NCAT, EOMI, anicteric sclera, MMM CV: RRR, no murmurs or clicks or rub. No edema. PPM/AICD left upper chest, paced ~70 RESP: CTAB, no w/r/r/ ABD: soft, NT, ND. Benign EXTREMITIES: 2+ radial pulses b/l, able to move all extremities NEURO: no focal deficits or acute changes A/P: This is a 69-year-old male presenting for exertional dyspnea, chest pain that began yesterday while walking up a hill, with associated lightheaded and dizziness. Also had one episode of painless viola hematuria also yesterday. No other complaints. None of these symptoms have re-occurred since then. He denies any recent changes in medications, sick contacts, travel. Workup negative thus far. 1. Exertional dyspnea, chest pain - Started yesterday acutely, gradually worsening - Negative cardiac markers. No events on telemetry - Has an AICD/PPM in place; reports it only shocked once in early , no recent event - afebrile, no leukocytosis, hemodynamically stable, imaging negative, no signs of fluid overload - possible viral [bronchitis vs pna] vs MSK vs related to HTN urgency - continue monitoring on tele,check orthostatics; COVID & echo pending 2. Dizziness - only with moving and recently started - may be viral, vs orthostatic vs related to HTN emergency - started on Meclizine. Monitor with supportive care - PT/OT. Monitor tele, echo pending, check orthostatics 3. Hematuria x1 - 1 episode of painless hematuria day prior to admission - pt reports hx of BPH, follows urology. No other issues - no further episodes; H&H stable - monitor & continue o/p f/u 4. HTN Urgency - bp in 200/100s overnight, may be contributing to pt's initial complaints - resolved with resumption of home meds, monitor IDDM2 with neuropathy ISS, levemir, fs ac/hs continue Gabapentin Hx of SVT/Afib PPM/AICD in place, no recent activation continue home Xarelto & cardiac meds Severe RAMAN appears to not be on CPAP encourage complaince, supplement O2 at night COPD, no O2 at baseline stable currently on room air Depression w/ hx of suicide attempt stable, continue SSRI DLD continue statin Diastolic CHF euvolemic. Continue home meds Gout stable, continue home med DVT ppx: chronic Xarelto DISPO: pending clinical improvement, likely dc home this week. VS,Fishbone, I+O VS, Fishbone, I+O Laboratory Tests 02/27/20 15:14 02/28/20 05:23 Vital Signs Date Time Temp Pulse Resp B/P (MAP) Pulse Ox O2 Delivery O2 Flow Rate FiO2 02/28/20 12:00 96.9 113 16 145/90 (108) 95 Room Air I&O- Last 24 Hours up to 6 AM 02/28/20 06:00 Intake Total 720 ml Output Total 900 ml Balance -180 ml GME ATTESTATION GME ATTESTATION My faculty preceptor for this patient encounter was physically present during the encounter and was fully available. All aspects of the patient interview, examination, medical decision making process, and medical care plan development were reviewed and approved by the faculty preceptor. The faculty preceptor is aware and concurs with the plan as stated in the body of this note and will attest to such by his/her cosignature. ATTENDING NOTE I, Jodie Palafox, have independently examined this patient and perf ormed my own physical exam, as well as reviewed the documentation and edited where necessary. I have discussed in detail with the resident / student the findings and plan of treatment as documented by the resident / student and edited their note. I agree with their findings and treatment plan and have edited their documentation. Briefly he is a patient of Dr. Falcon with a pacemaker/AICD who presented with an episode of dizziness and exertional chest pain that has since resolved. His labs were otherwise normal, he is on room air, and is pending a TTE and has an no abnormal events on telemetry and negative orthostatics. Will await PT/OT eval and monitor tele during exertion. Will also FYI Dr. Chow covering cardiology for potential recs. We will continue to follow the patient during this hospital stay. LUIS FERNANDO RIVERA DO Feb 28, 2020 14:20 JODIE PALAFOX MD Feb 29, 2020 08:29
--- NOTE | 2020-02-28 14:57 | ECGEPIP ---
[facility] - ED Test Date: 2020-02-27 Pat Name: JODY BUENROSTRO Department: Room: - Gender: Male [employer] Clerk: MELVI : 1950 Requested By: ABEL BERRIOS Order Number: [id number] Reading MD: Princess Alexander Measurements Intervals [place] Rate: 69 P: WA: 0 QRS: -83 QRSD: 184 T: 85 QT: 463 QTc: 499 Interpretive Statements ELECTRONIC VENTRICULAR PACEMAKER ABNORMAL RHYTHM ECG SIMILAR 01/20/18 Electronically Signed on 02-28-2020 14:56:51 EDT by Princess Alexander
[2020-02-28 15:13] LABS: CK-MB VALUE MASS 1.4 NG/ML (<3.6); CPK CREATINE PHOSPHOKINASE 96 U/L (39-308); MB/CK RELATIVE INDEX 1.46 (< OR =4); TROPONIN I < 0.02 NG/ML (< 0.10)
[2020-02-28] MEDS: MAGNESIUM CHLORIDE 64 MG TABCR (SLO MAG) PO SCH (16:40)
[2020-02-28] MEDS: PRAVASTATIN 20 MG TAB PO SCH (20:54)
[2020-02-28] MEDS: LEVEMIR (INSULIN DETEMIR) 1 UNITS/0.01ML SC SCH (20:55)
[2020-02-29] VITALS (9 sets, daily range): BP systolic 114–160; BP diastolic 78–99; O2SAT 95
[2020-02-29 00:55] LABS: CK-MB VALUE MASS 1.6 NG/ML (<3.6); CPK CREATINE PHOSPHOKINASE 110 U/L (39-308); MB/CK RELATIVE INDEX 1.45 (< OR =4); TROPONIN I < 0.02 NG/ML (< 0.10)
[2020-02-29 05:26] LABS: HEMATOCRIT 41.7 % (42.0-52.0); HEMOGLOBIN 13.8 g/dl (13.5-17.5); MEAN CORPUSCULAR HEMOGLOBIN 32.5 pg (27.0-33.0); MEAN CORPUSCULAR HGB CONC 33.1 g/dl (32.0-36.5); MEAN CORPUSCULAR VOLUME 98.1 fl (80.0-96.0); PLATELET COUNT, AUTOMATED 169 10^3/uL (150-450); RED BLOOD COUNT 4.25 10^6/uL (4.30-6.10)
[2020-02-29 06:25] LABS: BLOOD UREA NITROGEN 20 MG/DL (7-18); CALCIUM LEVEL 8.5 MG/DL (8.8-10.2); CARBON DIOXIDE LEVEL 30 MEQ/L (21-32); CHLORIDE LEVEL 106 MEQ/L (98-107); CK-MB VALUE MASS 1.9 NG/ML (<3.6); CPK CREATINE PHOSPHOKINASE 115 U/L (39-308); CREATININE FOR GFR 1.17 MG/DL (0.70-1.30); GLOMERULAR FILTRATION RATE > 60.0 (>49); GLUCOSE, FASTING 101 MG/DL (70-100); MAGNESIUM LEVEL 2.1 MG/DL (1.8-2.4); MB/CK RELATIVE INDEX 1.65 (< OR =4); POTASSIUM SERUM 4.4 MEQ/L (3.5-5.1); SODIUM LEVEL 139 MEQ/L (136-145); TROPONIN I < 0.02 NG/ML (< 0.10)
[2020-02-29] MEDS: COMBIVENT RESPIMAT 100-20MCG INHALER 4GM INH SCH ×2 (07:35→19:23)
[2020-02-29] MEDS: HumaLOG INSULIN (NovoLOG) PER UNIT SC SCH ×4 (08:24→20:13)
[2020-02-29] MEDS: CitaloPRAM (CeleXA) 20 MG TAB PO SCH (08:25)
[2020-02-29] MEDS: allopurinoL 300 MG TAB PO SCH (08:25)
[2020-02-29] MEDS: POTASSIUM CHLORIDE 10 MEQ SR TABLET PO SCH ×2 (08:25→20:13)
[2020-02-29] MEDS: RIVAROXABAN 20 MG TAB (XARELTO) PO SCH (08:25)
[2020-02-29] MEDS: TORSEMIDE 10 MG TABLET PO SCH (08:25)
[2020-02-29] MEDS: MAGNESIUM CHLORIDE 64 MG TABCR (SLO MAG) PO SCH (08:25)
[2020-02-29] MEDS: GABAPENTIN 300 MG CAP PO SCH ×3 (08:25→20:13)
[2020-02-29] MEDS: METOPROLOL SUCC (TopROL XL) 100MG *XL* TAB PO SCH (08:27)
[2020-02-29 13:00] LABS: CK-MB VALUE MASS 1.7 NG/ML (<3.6); CPK CREATINE PHOSPHOKINASE 113 U/L (39-308); TROPONIN I < 0.02 NG/ML (< 0.10)
[2020-02-29 14:06] LABS: PSA TOTAL 3.1 ng/mL (0.0-4.0)
--- NOTE | 2020-02-29 17:04 | ECHO ---
DATE OF PROCEDURE: 02/29/2020 REFERRING PHYSICIAN: Dr. Radha Couch INDICATION: Syncope. HEIGHT: 188 cm WEIGHT: 121 kg 2D MEASUREMENTS: Left atrium: 4.3 cm Ventricular septum: 1.38 cm Posterior wall: 1.40 cm Left ventricle diastole: 4.8 cm Aortic root: 4.3 cm Aortic annulus: 2.5 cm DOPPLER MEASUREMENTS: Aortic valve velocity: 102 cm/s No aortic stenosis. No aortic regurgitation. No mitral regurgitation. No mitral stenosis. Mitral E velocity: 54.8 cm/s Mitral A velocity: 38.5 cm/s Mitral deceleration time: 261 ms Mild tricuspid regurgitation. Estimated right ventricle systolic pressure: 22-27 mmHg assuming a right atrial pressure of 5-10 mmHg. No pulmonic regurgitation. Pulmonary artery systolic pressure: 27 mmHg. MITRAL ANNULAR TISSUE DOPPLER: E prime septal: 8.2 cm/s E prime lateral: 5.8 cm/s DESCRIPTION: Rhythm appeared to be AV sequential paced rhythm at 70 beats per minute (BPM). This was a technically difficult echocardiogram. No pericardial effusion. This was a 2D, M-mode, color flow Doppler and pulse wave Doppler examination and included mitral annular tissue Doppler. CONCLUSIONS: 1. Mild concentric left ventricle hypertrophy. Mild paradoxical septal motion. Preserved overall left ventricular (LV) systolic function. Left ventricular ejection fraction (LVEF) 60% by visual estimate. Technically difficult for precise regional wall motion assessment. Grade 2 LV diastolic dysfunction (pseudonormal filling pattern). 2. Mild left atrial dilatation. 3. Mild-moderate dilatation of the aortic root at the level of the sinuses of Valsalva (4.5 cm). 4. Normal right ventricle size and systolic function. 5. Mild aortic valve sclerosis of a 3-cusp aortic valve. No aortic stenosis or regurgitation. 6. Presence of an implantable cardioverter defibrillator (ICD) lead in the right ventricle. 7. Technically difficult echocardiogram. No subcostal views available.
--- NOTE | 2020-02-29 17:58 | IPNPDOC ---
Text Note Date of Service The patient was seen on 02/29/20. NOTE S: Pt examined at bedside. Reports he is still lightheaded with movement, no longer having exertional dyspnea or chest pain. Working with PT. No reported events overnight. No events on telemetry. Denies any further episodes of hematuria. Otherwise stable and has no complaints. PE: Vitals: see below General: NAD, A&Ox3, laying in bed comfortably HEENT: NCAT, EOMI, anicteric sclera, MMM CV: RRR, no murmurs or clicks or rub. No edema. PPM/AICD left upper chest, paced ~70 on tele RESP: CTAB, no w/r/r/ ABD: soft, NT, ND. Benign EXTREMITIES: 2+ radial pulses b/l, able to move all extremities NEURO: no focal deficits or acute changes A/P: This is a 69-year-old male presenting for exertional dyspnea, chest pain that began yesterday while walking up a hill, with associated lightheaded and dizziness. Also had one episode of painless viola hematuria also yesterday. No other complaints. None of these symptoms have re-occurred since then. He denies any recent changes in medications, sick contacts, travel. Workup negative thus far. 1. Exertional dyspnea, chest pain - Started day prior to admission acutely, gradually worsened leading him to the ER - Negative cardiac markers. No events on telemetry - Has an AICD/PPM in place; reports it only shocked once in early , no recent event - afebrile, no leukocytosis, hemodynamically stable, imaging negative, no signs of fluid overload - possible viral [bronchitis vs pna] vs MSK vs related to HTN urgency - COVID negative. Continue monitoring on tele, echo pending - will need o/p cardio f/u, normally follows Dr. Falcon; possible stress test 2. Dizziness - only with moving and recently started - may be viral, vs orthostatic - started on Meclizine. Monitor with supportive care - positive orthostatics, but pt has good po intake. Hold IVF thong hx of CHF and monitor - PT/OT. Monitor tele, echo pending, repeat orthostatics 3. Hematuria x1 - 1 episode of painless hematuria day prior to admission - pt reports hx of BPH, follows urology. No other issues. PSA nml - no further episodes; H&H stable - monitor & continue o/p f/u with urology 4. HTN Urgency - bp in 200/100s on admission, may be contributing to pt's initial complaints - resolved with resumption of home meds, monitor IDDM2 with neuropathy ISS, levemir, fs ac/hs continue Gabapentin Hx of SVT/Afib PPM/AICD in place, no recent activation continue home Xarelto & cardiac meds Severe RAMAN appears to not be on CPAP encourage compliance, supplement O2 at night COPD, no O2 at baseline stable currently on room air Depression w/ hx of suicide attempt stable, continue SSRI DLD continue statin Chronic diastolic CHF euvolemic. Continue home meds Gout stable, continue home med DVT ppx: chronic Xarelto DISPO: pending clinical improvement, PT/OT, possible rehab. VS,Fishbone, I+O VS, Fishbone, I+O Laboratory Tests 02/29/20 05:05 Vital Signs Date Time Temp Pulse Resp B/P (MAP) Pulse Ox O2 Delivery O2 Flow Rate FiO2 02/29/20 16:00 95 Room Air 02/29/20 15:43 98.5 86 18 122/86 (98) I&O- Last 24 Hours up to 6 AM 02/29/20 06:00 Intake Total 2200 ml Output Total 1725 ml Balance 475 ml GME ATTESTATION GME ATTESTATION My faculty preceptor for this patient encounter was physically present during the encounter and was fully available. All aspects of the patient interview, examination, medical decision making process, and medical care plan development were reviewed and approved by the faculty preceptor. The faculty preceptor is aware and concurs with the plan as stated in the body of this note and will attest to such by his/her cosignature. ATTENDING NOTE I, Jodie Palafox, have independently examined this patient and performed my own physical exam, as well as reviewed the documentation and edited where necessary. I have discussed in detail with the resident / student the findings and plan of treatment as documented by the resident / student and edited their note. I agree with their findings and treatment plan and have edited their documentation. Discussed his case with Dr. Chow who recommended outpatient follow up but otherwise likely having him rehabilitated for deconditioning. This afternoon, gave some fluids for orthostasis though I doubt that he is particularly dry. We will continue to follow the patient during this hospital stay. LUIS FERNANDO RIVERA DO Feb 29, 2020 17:58 JODIE PALAFOX MD Feb 29, 2020 19:35
[2020-02-29] MEDS ORDERED: NS 1,000 ML IV ONE (19:00)
[2020-02-29] MEDS: PRAVASTATIN 20 MG TAB PO SCH (20:13)
[2020-02-29] MEDS: LEVEMIR (INSULIN DETEMIR) 1 UNITS/0.01ML SC SCH (20:14)
[2020-03-01] VITALS: BP 126/77
[2020-03-01 04:00] VITALS: BP_SYST 121; BP_SYST 123; BP_SYST 133; BP_DIAS 85; BP_DIAS 86; BP_DIAS 87
[2020-03-01 06:15] LABS: HEMATOCRIT 39.3 % (42.0-52.0); MEAN CORPUSCULAR HEMOGLOBIN 32.1 pg (27.0-33.0); MEAN CORPUSCULAR HGB CONC 33.1 g/dl (32.0-36.5); PLATELET COUNT, AUTOMATED 175 10^3/uL (150-450); RED BLOOD COUNT 4.05 10^6/uL (4.30-6.10); WHITE BLOOD COUNT 5.6 10^3/uL (4.0-10.0)
[2020-03-01 06:41] LABS: BLOOD UREA NITROGEN 19 MG/DL (7-18); CALCIUM LEVEL 8.1 MG/DL (8.8-10.2); CARBON DIOXIDE LEVEL 27 MEQ/L (21-32); CHLORIDE LEVEL 106 MEQ/L (98-107); CREATININE FOR GFR 1.07 MG/DL (0.70-1.30); GLOMERULAR FILTRATION RATE > 60.0 (>49); GLUCOSE, FASTING 94 MG/DL (70-100); MAGNESIUM LEVEL 1.9 MG/DL (1.8-2.4); SODIUM LEVEL 138 MEQ/L (136-145)
[2020-03-01] MEDS: COMBIVENT RESPIMAT 100-20MCG INHALER 4GM INH SCH (07:24)
[2020-03-01] MEDS: HumaLOG INSULIN (NovoLOG) PER UNIT SC SCH ×2 (07:27→12:00)
[2020-03-01] MEDS ORDERED: SLF 3 ML SYR IV PRN (07:45)
[2020-03-01 07:53] VITALS: BP 136/81
[2020-03-01] MEDS: POTASSIUM CHLORIDE 10 MEQ SR TABLET PO SCH (09:30)
[2020-03-01] MEDS: MAGNESIUM CHLORIDE 64 MG TABCR (SLO MAG) PO SCH (09:30)
[2020-03-01] MEDS: RIVAROXABAN 20 MG TAB (XARELTO) PO SCH (09:30)
[2020-03-01] MEDS: GABAPENTIN 300 MG CAP PO SCH (09:30)
[2020-03-01 09:31] VITALS: BP 136/81
[2020-03-01] MEDS: CitaloPRAM (CeleXA) 20 MG TAB PO SCH (09:31)
[2020-03-01] MEDS: METOPROLOL SUCC (TopROL XL) 100MG *XL* TAB PO SCH (09:31)
[2020-03-01] MEDS: TORSEMIDE 10 MG TABLET PO SCH (09:31)
[2020-03-01] MEDS: allopurinoL 300 MG TAB PO SCH (09:31)
[2020-03-01 12:07] VITALS: BP 153/84
[2020-03-01] MEDS ORDERED: SLF 3 ML SYR IV SCH (14:00)
--- NOTE | 2020-03-01 16:46 | DS.PDOC ---
Discharge Summary General Date of Admission Feb 27, 2020 at 19:32 Date of Discharge 03/01/2020 Primary Care Physician: Felisha Segura Attending Physician: JODIE PALAFOX MD Discharge Summary PROCEDURES PERFORMED DURING STAY: None. DISCHARGE DIAGNOSES: 1. Exertional dyspnea, chest pain 2. Orthostatic hypotension 3. Hematuria x1 4. HTN Urgency 5. IDDM2 with neuropathy 6. Hx of SVT/Afib s/p AICD/PPM 7. Severe RAMAN 8. COPD, no O2 at baseline 9. Depression w/ hx of suicide attempt 10. DLD 11. Chronic diastolic CHF 12. Gout HISTORY OF PRESENT ILLNESS: This is a 69-year-old male presenting for exertional dyspnea, chest pain that began day prior to admission while walking up a hill, with associated lightheaded and dizziness. Also had one episode of painless viola hematuria also on the same day, but clear urine afterwards. No other complaints. He denies any recent changes in medications, sick contacts, travel. He was found to have blood pressure 200 over 100s on admission, which self improved upon resuming his home regimen. HOSPITAL COURSE: Patient was admitted and had negative cardiac markers and no events on telemetry throughout his stay. No activation of his AICD. He was afebrile without any leukocytosis. Was hemodynamic stable with negative imaging and no signs of fluid overload. It is possible he had a viral URI versus musculoskeletal etiology versus symptoms related to hypertensive urgency to explain his exertional dyspnea and chest pain. His Covid testing was negative. Regarding his dizziness coming was found to have positive orthostatics which symptomatically and clinically resolved with IV fluid hydration. He worked with PT and OT and was cleared for discharge home. He had no additional episodes of hematuria, PSA was normal. H&H remained stable. He felt much improved and back to his baseline. Upon discharge, he was advised to follow-up closely with his home health outreach coordinator for further testing including possible stress test, and to follow- up with his urologist. DISCHARGE MEDICATIONS: Please see below. ALLERGIES: Please see below. PHYSICAL EXAMINATION ON DISCHARGE: VITAL SIGNS: Please see below. General: NAD, A&Ox3, laying in bed comfortably HEENT: NCAT, EOMI, anicteric sclera, MMM CV: RRR, no murmurs or clicks or rub. No edema. PPM/AICD left upper chest, paced ~70 on tele RESP: CTAB, no w/r/r/ ABD: soft, NT, ND. Benign EXTREMITIES: 2+ radial pulses b/l, able to move all extremities NEURO: no focal deficits, able to follow commands LABORATORY DATA: Please see below. IMAGIN02/27/2020 CXR: Mild cardiomegaly. No acute infiltrate. 02/27/2020 neck CTA: No stenosis (0%) or dissection. 02/27/2020 chest CTA: No hemodynamically significant stenosis or large vessel occlusion. 02/27/[address]: No acute intracranial abnormality. 02/29/2020 echo: 1. Mild concentric left ventricle hypertrophy. Mild paradoxical septal motion. Preserved overall left ventricular (LV) systolic function. Left ventricular ejection fraction (LVEF) 60% by visual estimate. Technically difficult for precise regional wall motion assessment. Grade 2 LV diastolic dysfunction (pseudonormal filling pattern). 2. Mild left atrial dilatation. 3. Mild-moderate dilatation of the aortic root at the level of the sinuses of Valsalva (4.5 cm). 4. Normal right ventricle size and systolic function. 5. Mild aortic valve sclerosis of a 3-cusp aortic valve. No aortic stenosis or regurgitation. 6. Presence of an implantable cardioverter defibrillator (ICD) lead in the right ventricle. 7. Technically difficult echocardiogram. No subcostal views available. PROGNOSIS: good ACTIVITY: As tolerated. DIET: 2g sodium DISPOSITION: home DISCHARGE INSTRUCTIONS: 1. Follow-up with PCP within a week, cardio 1-2 weeks 2. Return to ER for emergency DISCHARGE CONDITION: Stable. TIME SPENT ON DISCHARGE: Greater than 35 minutes. Vital Signs/I&Os Vital Signs Date Time Temp Pulse Resp B/P (MAP) Pulse Ox O2 Delivery O2 Flow Rate FiO2 03/01/20 12:07 97.3 70 18 153/84 (107) 97 Room Air I&O- Last 24 Hours up to 6 AM 03/01/20 06:00 Intake Total 3510 ml Output Total 2100 ml Balance 1410 ml Laboratory Data Labs 24H Laboratory Tests 2 02/29/20 17:40: Bedside Glucose (Misc Panel) 116H 02/29/20 19:43: Bedside Glucose (Misc Panel) 80 03/01/20 05:55: Nucleated Red Blood Cells % (auto) 0.0, Anion Gap 5L, Glomerular Filtration Rate > 60.0, Calcium Level 8.1L, Magnesium Level 1.9 03/01/20 12:40: Bedside Glucose (Misc Panel) 130H CBC/BMP Laboratory Tests 03/01/20 05:55 FSBS Laboratory Tests Test 02/29/20 17:40 02/29/20 19:43 03/01/20 12:40 Range/Units Bedside Glucose (Misc Panel) 116 80 130 80-115 MG/DL Microbiology Microbiology 02/27/20 Coronavirus COVID-19 PCR ([facility]) - Final, Complete Discharge Medications Scheduled Allopurinol (Zyloprim) 300 Mg Tab, 300 MG PO DAILY, (Reported) Calcium Carbonate (Calcium Carbonate) 600 Mg Tab, 600 MG PO DAILY, (Reported) Citalopram Hydrobromide (Citalopram HBr) 40 Mg Tab, 40 MG PO DAILY, (Reported) Ergocalciferol (Vitamin D2) (Vitamin D2) 50,000 Units Cap, 50,000 UNITS PO 1XWK, (Reported) SATURDAYS Gabapentin (Neurontin) 300 Mg Cap, 300 MG PO TID, (Reported) Insulin Detemir (Levemir) 1 Units/0.01 Ml Susp, 18 UNITS SC QHS, (Reported) Magnesium Chloride (Mag64) 64 Mg Tabcr, 64 MG PO DAILY, (Reported) Metformin HCl (Metformin HCl) 1,000 Mg Tablet, 1,000 MG PO BID, (Reported) 2ND DOSE WITH EVENING MEAL Metoprolol Succinate (Metoprolol Succinate) 100 Mg Tab, 100 MG PO DAILY, (Reported) Mirabegron (Myrbetriq) 50 Mg Tab, 50 MG PO DAILY, (Reported) Multivitamin (Multivitamins) 1 Each Capsule, 1 CAP PO BID, (Reported) [place]-3/Dha/Epa/Fish Oil (Fish Oil EC 1,000 mg Softgel) 1 Cap Cap, 1,000 CAP PO TID, (Reported) Potassium Chloride (Potassium Chloride) 20 Meq Tab, 20 MEQ PO BID, (Reported) Pravastatin Sodium (Pravastatin Sodium) 80 Mg Tab, 80 MG PO QHS, (Reported) Rivaroxaban (Xarelto) 20 Mg Tab, 20 MG PO DAILY, (Reported) Semaglutide (Ozempic) 0.25 Mg/0.2 Ml Pen.injctr, 0.5 MG SC 1XWK, (Reported) MONDAYS Torsemide (Torsemide) 10 Mg Tab, 10 MG PO DAILY, (Reported) Umeclidinium Brm/Vilanterol Tr (Anoro Ellipta 62.5-25 Mcg INH) 1 Aer Aer, 1 PUFF INH DAILY, (Reported) Allergies Coded Allergies: No Known Allergies (Verified , 03/15/18) GME ATTESTATION GME ATTESTATION My faculty preceptor for this patient encounter was physically present during the encounter and was fully available. All aspects of the patient interview, examination, medical decision making process, and medical care plan development were reviewed and approved by the faculty preceptor. The faculty preceptor is aware and concurs with the plan as stated in the body of this note and will attest to such by his/her cosignature. ATTENDING NOTE I, Jodie Palafox, have independently examined this patient and performed my own physical exam, as well as reviewed the documentation and edited where necessary. I have discussed in detail with the resident / student the findings and plan of treatment as documented by the resident / student and edited their note. I agree with their findings and treatment plan and have edited their documentation. Mr. Hoyos was admitted for dizziness and exertional chest pain and on evaluation did not have evidence of ACS or arrythmias. He was found to be orthostatic that improved with fluids and is now being discharged home with a walker and home PT. LUIS FERNANDO RIVERA DO Mar 01, 2020 16:45 JODIE PALAFOX MD Mar 02, 2020 07:39
== END 2020-03-01 15:30 | disposition home or self-care (01) | DRG 305 ==
LOC: M ED 13:51 → M ED INP 19:32 → ENRESERVDT 20:04 → ENRESERVTM 20:04 → M PCU 21:58
PROVIDERS: ADMIT General Practice; ATTEND General Practice
DX: I16.0 Hypertensive urgency (principal); I50.32 Chronic diastolic (congestive) heart failure; R31.9 Hematuria, unspecified; E11.40 Type 2 diabetes mellitus with diabetic neuropathy, unspecified; M10.9 Gout, unspecified; J44.9 Chronic obstructive pulmonary disease, unspecified; G47.33 Obstructive sleep apnea (adult) (pediatric); F32.9 Major depressive disorder, single episode, unspecified; I95.1 Orthostatic hypotension; I48.0 Paroxysmal atrial fibrillation; Z79.899 Other long term (current) drug therapy; E78.00 Pure hypercholesterolemia, unspecified; I11.0 Hypertensive heart disease with heart failure; Z87.891 Personal history of nicotine dependence

== ENCOUNTER 2020-03-12 09:58 | Outpatient (RCR) | payer MEDICARE, MEDICAID ==
[~2020-03-12 09:58] MED LIST changes: +D3 +TAB PO; +MULTCAP PO; +OZEM2INJ SC; +VITA50005 PO
== END 2020-03-14 ==
LOC: M PT 09:58
PROVIDERS: ATTEND Nurse Practitioner Adult Health
DX: R26.89 Other abnormalities of gait and mobility (principal)

== ENCOUNTER 2020-04-04 09:59 | Outpatient (RCR) | payer MEDICARE, MEDICAID | END 2020-04-14 | LOC: M PT 09:59 | PROVIDERS: ATTEND Nurse Practitioner Adult Health | DX: Z51.89 Encounter for other specified aftercare (principal); R26.89 Other abnormalities of gait and mobility ==

== ENCOUNTER → 2020-06-11 | Outpatient (CLI) | payer MEDICARE ==
[~2020-06-11] MED LIST changes: -CALC600T3 PO; +CALC600T86 PO
== END ==
LOC: M LAB 10:25
PROVIDERS: ATTEND Urology
DX: R31.0 Gross hematuria (principal)

== ENCOUNTER 2020-11-09 14:33 | Emergency (ER) | payer MEDICARE, MEDICAID ==
[~2020-11-09] VITALS: Ht 185.4 cm; Wt 107.7 kg
--- NOTE | 2020-11-09 15:06 | REP ---
INDICATION: trauma COMPARISON: None. TECHNIQUE: Internal rotation, external rotation, and Y view. FINDINGS: There is a comminuted fracture involving the humeral head/neck. Underlying age-related degenerative changes at the acromioclavicular joint and glenoid rim noted. IMPRESSION: Acute comminuted fracture involving the humeral head/neck. <Electronically signed by Delio Iraheta > 11/09/20 [id number]
--- NOTE | 2020-11-09 15:45 | REP ---
INDICATION: fracture, request Dr. Andre. COMPARISON: None. TECHNIQUE: Axial noncontrast images through the shoulder with coronal and sagittal reformations. This CT examination was performed using the following dose reduction techniques: Automated exposure control, adjustment of mA and/or kv according to the patient's size, and use of iterative reconstruction technique. FINDINGS: Comminuted nondisplaced fracture through the humeral head/neck involving the tuberosities with surrounding posttraumatic joint infiltration. Visualized left ribs, clavicle, and scapula are intact. IMPRESSION: Comminuted nondisplaced fracture involving humeral head/neck. <Electronically signed by Delio Iraheta > 11/09/20 [id number]
[2020-11-09] MEDS ORDERED: NORC1TAB7 PO (15:56)
[2020-11-09 16:32] VITALS: BP 167/92
== END 2020-11-09 17:45 | disposition home or self-care (01) ==
LOC: EDBD 14:33 → M ED 14:33
DX: S42.202A Unspecified fracture of upper end of left humerus, initial encounter for closed fracture (principal); W19.XXXA Unspecified fall, initial encounter; Y92.481 Parking lot as the place of occurrence of the external cause; Y93.9 Activity, unspecified; Y99.9 Unspecified external cause status; I48.91 Unspecified atrial fibrillation; I10 Essential (primary) hypertension; E78.5 Hyperlipidemia, unspecified; E11.9 Type 2 diabetes mellitus without complications; F32.9 Major depressive disorder, single episode, unspecified; Z91.5 Personal history of self-harm; Z98.84 Bariatric surgery status; Z79.4 Long term (current) use of insulin; Z79.899 Other long term (current) drug therapy

== ENCOUNTER → 2021-05-22 | Outpatient (REF) | payer MEDICARE, MEDICAID ==
[~2021-05-22] MED LIST changes: +ERGO500029 PO; +NORC1TAB7 PO; -VITA50005 PO
[2021-05-22 17:55] LABS: HEMATOCRIT 39.3 % (42.0-52.0)
[2021-05-22 18:16] LABS: PERCENT SATURATION 14.6 % (19.7-50.0)
== END ==
LOC: M LAB REF 16:32
PROVIDERS: ATTEND Nurse Practitioner Adult Health
DX: N18.31 Chronic kidney disease, stage 3a (principal); D64.9 Anemia, unspecified

== ENCOUNTER 2021-07-24 11:33 | Observation (INO) | payer MEDICARE, MEDICAID ==
[~2021-07-24] VITALS: Ht 188 cm; Wt 105.4 kg
[2021-07-24] MEDS: TORSEMIDE 10 MG TABLET PO SCH (09:00)
[~2021-07-24 11:33] MED LIST changes: +POTA-151 PO; -POTA20TA6 PO
[2021-07-24 15:19] LABS: BASO % 0.4 % (0.0-1.0); EOS # 0.1 10^3/uL (0.0-0.5); EOS % 0.7 % (0.0-3.0); HEMATOCRIT 38.6 % (42.0-52.0); HEMOGLOBIN 12.8 g/dl (13.5-17.5); LYMPH # 1.2 10^3/uL (1.5-5.0); LYMPH % 14.1 % (24.0-44.0); MEAN CORPUSCULAR HEMOGLOBIN 31.4 pg (27.0-33.0); MEAN CORPUSCULAR HGB CONC 33.2 g/dl (32.0-36.5); MEAN CORPUSCULAR VOLUME 94.6 fl (80.0-96.0); MONO # 0.5 10^3/uL (0.0-0.8); MONO % 5.5 % (2.0-8.0); NEUTROPHILS # 6.7 10^3/uL (1.5-8.5); NEUTROPHILS % 78.8 % (36.0-66.0); PLATELET COUNT, AUTOMATED 176 10^3/uL (150-450); RED BLOOD COUNT 4.08 10^6/uL (4.30-6.10); WHITE BLOOD COUNT 8.5 10^3/uL (4.0-10.0)
[2021-07-24] MEDS ORDERED: LIDOCAINE 2% W/EPINEPHRINE 20ML VIAL **PRES FREE INJ ONE (15:25)
[2021-07-24] MEDS ORDERED: BOOSTRIX/ADACEL VACCINE (DIPHTH/PERTUSS/ACELL/TETANUS) 0.5ML SYR IM ONE (15:25)
[2021-07-24] MEDS ORDERED: LIDOCAINE 2% W/EPINEPHRINE 20ML VIAL **PRES FREE As Ordered ONE (15:27)
[2021-07-24 15:43] LABS: ALBUMIN 3.4 GM/DL (3.2-5.2); ALT/SGPT 24 U/L (12-78); BILIRUBIN,TOTAL 0.5 MG/DL (0.2-1.0); BLOOD UREA NITROGEN 36 MG/DL (7-18); CALCIUM LEVEL 8.7 MG/DL (8.8-10.2); CARBON DIOXIDE LEVEL 24 MEQ/L (21-32); CHLORIDE LEVEL 108 MEQ/L (98-107); CREATININE FOR GFR 1.25 MG/DL (0.70-1.30); GLOMERULAR FILTRATION RATE > 60.0 (>49); GLUCOSE, FASTING 107 MG/DL (70-100); POTASSIUM SERUM 4.4 MEQ/L (3.5-5.1); SODIUM LEVEL 139 MEQ/L (136-145); TOTAL PROTEIN 6.5 GM/DL (6.4-8.2)
[2021-07-24] MEDS ORDERED: OXYMETAZOLINE 0.05% NASAL SPRAY (AFRIN) ONE (15:50)
[2021-07-24 16:29] LABS: INR 2.12; PROTHROMBIN TIME 24.1 SECONDS (12.7-14.5)
[2021-07-24] MEDS ORDERED: TRANEXAMIC ACID 100 MG/ML 10ML VIAL ONE (18:10)
[2021-07-24] MEDS ORDERED: ACETAMINOPHEN TAB 650MG DOSE (2X325MG) PO PRN (19:15)
[2021-07-24 19:21] LABS: RSV AMPLIFICATION NEGATIVE (NEGATIVE)
[2021-07-24] MEDS ORDERED: METF-839 PO (19:22)
[2021-07-24] MEDS ORDERED: CYAN100050 PO (19:22)
[2021-07-24] MEDS ORDERED: METO1TAB7 PO (19:22)
[2021-07-24] MEDS ORDERED: FLOM0.4C39 PO (19:22)
[2021-07-24] MEDS ORDERED: ALLO300T2 PO (19:22)
[2021-07-24] MEDS ORDERED: FERR325T18 PO (19:22)
[2021-07-24] MEDS ORDERED: COLA100C5 PO (19:22)
[2021-07-24] MEDS ORDERED: HOME MED LIST COMPLETE! XX SCH (19:25)
[2021-07-24] MEDS ORDERED: GLUCAGON INJ 1MG VIAL SC PRN (19:30)
[2021-07-24] MEDS ORDERED: DEXTROSE 50% 50 ML SYRINGE IV PRN (19:30)
[2021-07-24] MEDS ORDERED: GLUCOSE 4GM CHEW TABLET PO PRN (19:30)
[2021-07-24] MEDS ORDERED: PRAVASTATIN 20 MG TAB PO SCH (21:00)
[2021-07-24] MEDS: COMBIVENT RESPIMAT 100-20MCG INHALER 4GM INH SCH (21:00)
[2021-07-24] MEDS ORDERED: HumaLOG INSULIN (NovoLOG) PER UNIT SC SCH (21:00)
[2021-07-24] MEDS ORDERED: TAMSULOSIN 0.4 MG CAP PO SCH (21:00)
[2021-07-24] MEDS: GABAPENTIN 300 MG CAP PO SCH (23:46)
[2021-07-25 03:14] VITALS: BP 156/63
[2021-07-25 06:00] VITALS: BP 135/86
[2021-07-25 06:11] LABS: BASO % 0.2 % (0.0-1.0); EOS # 0.1 10^3/uL (0.0-0.5); EOS % 1.3 % (0.0-3.0); HEMOGLOBIN 12.1 g/dl (13.5-17.5); LYMPH # 1.4 10^3/uL (1.5-5.0); LYMPH % 24.6 % (24.0-44.0); MEAN CORPUSCULAR HEMOGLOBIN 30.7 pg (27.0-33.0); MEAN CORPUSCULAR HGB CONC 32.7 g/dl (32.0-36.5); MEAN CORPUSCULAR VOLUME 93.9 fl (80.0-96.0); MONO # 0.6 10^3/uL (0.0-0.8); MONO % 10.4 % (2.0-8.0); NEUTROPHILS # 3.5 10^3/uL (1.5-8.5); NEUTROPHILS % 63.1 % (36.0-66.0); PLATELET COUNT, AUTOMATED 160 10^3/uL (150-450); RED BLOOD COUNT 3.94 10^6/uL (4.30-6.10); WHITE BLOOD COUNT 5.6 10^3/uL (4.0-10.0)
[2021-07-25 06:12] LABS: BLOOD UREA NITROGEN 30 MG/DL (7-18); CALCIUM LEVEL 8.6 MG/DL (8.8-10.2); CARBON DIOXIDE LEVEL 25 MEQ/L (21-32); CHLORIDE LEVEL 109 MEQ/L (98-107); CREATININE FOR GFR 1.22 MG/DL (0.70-1.30); GLOMERULAR FILTRATION RATE > 60.0 (>49); GLUCOSE, FASTING 120 MG/DL (70-100); POTASSIUM SERUM 3.9 MEQ/L (3.5-5.1); SODIUM LEVEL 140 MEQ/L (136-145)
[2021-07-25] MEDS: COMBIVENT RESPIMAT 100-20MCG INHALER 4GM INH SCH (07:19)
[2021-07-25 09:00] VITALS: BP 105/70
[2021-07-25] MEDS ORDERED: METOPROLOL SUCC (TopROL XL) 50MG **XL** TAB PO SCH (09:00)
[2021-07-25] MEDS ORDERED: allopurinoL 300 MG TAB PO SCH (09:00)
[2021-07-25] MEDS ORDERED: AUGMENTIN 875 MG TAB PO SCH (09:00)
[2021-07-25] MEDS: HumaLOG INSULIN (NovoLOG) PER UNIT SC SCH ×2 (09:33→12:00)
[2021-07-25 09:44] VITALS: BP 105/70
[2021-07-25] MEDS: GABAPENTIN 300 MG CAP PO SCH (09:58)
[2021-07-25] MEDS: TORSEMIDE 10 MG TABLET PO SCH ×2 (09:58→10:09)
[2021-07-25] MEDS ORDERED: AMOX875T2 PO (12:18)
[2021-07-25 14:00] VITALS: BP 130/82
== END 2021-07-25 15:09 | disposition home or self-care (01) ==
LOC: M ED 11:33 → EDBD 11:33 → M ED INP 11:34 → M MSPAV 23:03
PROVIDERS: ADMIT Internal Medicine Nephrology; ATTEND Internal Medicine Nephrology
DX: S02.2XXA Fracture of nasal bones, initial encounter for closed fracture (principal); S80.01XA Contusion of right knee, initial encounter; S01.81XA Laceration without foreign body of other part of head, initial encounter; W19.XXXA Unspecified fall, initial encounter; Y93.9 Activity, unspecified; Y92.513 Shop (commercial) as the place of occurrence of the external cause; Y99.9 Unspecified external cause status; Z79.01 Long term (current) use of anticoagulants; I48.91 Unspecified atrial fibrillation; R04.0 Epistaxis; Z95.810 Presence of automatic (implantable) cardiac defibrillator; I11.9 Hypertensive heart disease without heart failure; I50.30 Unspecified diastolic (congestive) heart failure; J44.9 Chronic obstructive pulmonary disease, unspecified; M10.9 Gout, unspecified; E11.40 Type 2 diabetes mellitus with diabetic neuropathy, unspecified; G47.33 Obstructive sleep apnea (adult) (pediatric); N40.0 Benign prostatic hyperplasia without lower urinary tract symptoms; Z79.84 Long term (current) use of oral hypoglycemic drugs; Z79.899 Other long term (current) drug therapy; Z98.84 Bariatric surgery status
CPT/HCPCS: 12011; 36415; 70450; 72125; 73564; 80048; 80053; 85025; 85610; 86850; 86900; 86901; 87631; 90471; 90715; 94664; 96372; 99285; G0378

== ENCOUNTER 2021-07-26 09:15 | Emergency (ER) | payer MEDICARE, OTHER ==
[~2021-07-26] VITALS: Ht 185.4 cm; Wt 105.6 kg
[~2021-07-26 09:15] MED LIST changes: +AMOX875T2 PO; +COLA100C5 PO; +CYAN100050 PO; +FERR325T18 PO; +FLOM0.4C39 PO; +METF-839 PO; +METO1TAB7 PO; -POTA-151 PO; +POTA20TA6 PO
[2021-07-26 09:17] VITALS: BP 135/75
== END 2021-07-26 10:41 | disposition home or self-care (01) ==
LOC: M ED 09:15
DX: R04.0 Epistaxis (principal); I48.91 Unspecified atrial fibrillation; I11.0 Hypertensive heart disease with heart failure; I50.9 Heart failure, unspecified; E11.9 Type 2 diabetes mellitus without complications; Z79.01 Long term (current) use of anticoagulants; Z79.899 Other long term (current) drug therapy

== ENCOUNTER → 2021-12-10 | Outpatient (REF) | payer MEDICARE, MEDICAID ==
[~2021-12-10] MED LIST changes: +POTA-151 PO; -POTA20TA6 PO
[2021-12-11 23:07] LABS: PSA % FREE 10.2 % (.); PSA FREE 0.48 ng/mL; PSA TOTAL 4.7 ng/mL (0.0-4.0)
== END ==
LOC: M LAB REF 12:22
PROVIDERS: ATTEND Nurse Practitioner Adult Health
DX: R97.20 Elevated prostate specific antigen [PSA] (principal)

== ENCOUNTER → 2022-01-28 | Outpatient (REF) | payer OTHER | LOC: M SFHCADAM 09:12 | PROVIDERS: ATTEND Urology | DX: C61 Malignant neoplasm of prostate (principal); R97.20 Elevated prostate specific antigen [PSA]; N42.89 Other specified disorders of prostate ==

== ENCOUNTER → 2022-02-03 | Outpatient (CLI) | payer MEDICARE ==
[2022-02-03 15:43] LABS: CALCIUM LEVEL 8.5 MG/DL (8.8-10.2); CREATININE FOR GFR 1.28 MG/DL (0.70-1.30); GLOMERULAR FILTRATION RATE 59.3 (>49); POTASSIUM SERUM 4.3 MEQ/L (3.5-5.1); PROSTATIC SPECIFIC AG MONITOR 12.2 NG/ML (< 4.00)
== END ==
LOC: M LAB 14:06
PROVIDERS: ATTEND Urology
DX: C61 Malignant neoplasm of prostate (principal)

== ENCOUNTER → 2022-03-03 | Outpatient (REF) | payer MEDICARE, MEDICAID ==
[2022-03-03 18:00] LABS: INR 1.72; PROTHROMBIN TIME 20.6 SECONDS (12.7-14.5)
[2022-03-03 18:01] LABS: PARTIAL THROMBOPLASTIN TIME 39.9 SECONDS (25.9-37.0)
[2022-03-03 18:16] LABS: APPEARANCE, URINE CLEAR (CLEAR); BACTERIA, URINE AUTO NEGATIVE (NEGATIVE); BILIRUBIN, URINE AUTO NEGATIVE (NEGATIVE); BLOOD, URINE BLOOD 1+ (NEGATIVE); COLOR, URINE YELLOW (YELLOW); GLUCOSE, URINE (UA) AUTO NEGATIVE (NEGATIVE); KETONE, URINE AUTO NEGATIVE (NEGATIVE); LEUKOCYTE ESTERASE, URINE AUTO 1+ (NEGATIVE); MUCUS, URINE SMALL (NEGATIVE); NITRITE, URINE AUTO NEGATIVE (NEGATIVE); PROTEIN, URINE AUTO NEGATIVE (NEGATIVE); RBC, URINE AUTO 2 /HPF (0-3); SQUAMOUS EPITHELIAL CELL UR AU 1 /HPF (0-6); UROBILINOGEN, URINE AUTO 0.2 mg/dL (0.0-2.0); WBC, URINE AUTO 15 /HPF (0-3)
== END ==
LOC: M LAB REF 16:45
PROVIDERS: ATTEND Nurse Practitioner Adult Health
DX: Z01.818 Encounter for other preprocedural examination (principal); Z79.01 Long term (current) use of anticoagulants

== ENCOUNTER → 2022-03-04 | Outpatient (CLI) | payer MEDICARE, MEDICAID | LOC: M WUC 09:55 | PROVIDERS: ATTEND Nurse Practitioner Adult Health | DX: Z01.818 Encounter for other preprocedural examination (principal) ==

== ENCOUNTER 2022-03-26 07:30 | Inpatient (IN) | payer MEDICARE ==
[~2022-03-26] VITALS: Ht 185.4 cm; Wt 108.6 kg
[2022-04-01] MEDS ORDERED: LR 1,000 ML IV ONE (06:00)
[2022-04-01] MEDS ORDERED: HEPARIN SOD (PORCINE) 5000UNITS/ML 1ML VIAL/SYRINGE SQ ONE (06:00)
[2022-04-01] MEDS ORDERED: ceFAZolin SOD 2 GM in IV 1 EA IV ONE (06:00)
[2022-04-01] MEDS ORDERED: LIDOCAINE 1% MDV 20ML VIAL SQ PRN (06:00)
[2022-04-01] MEDS ORDERED: LIDOCAINE 1% SDV 30ML VIAL As Ordered ONE (11:55)
[2022-04-01] MEDS ORDERED: BUPIVACAINE HCL 0.25% 30ML VIAL As Ordered ONE (11:55)
[2022-04-01] MEDS ORDERED: LACRILUBE (AKWA TEARS) OPHTH OINT 3.5 GM As Ordered ONE (12:20)
[2022-04-01] MEDS ORDERED: ROCURONIUM BROMIDE 50 MG/5 ML VIAL As Ordered ONE ×2 (12:47→15:07)
[2022-04-01] MEDS ORDERED: MIDAZOLAM INJ 2MG/2ML VIAL (J2250 PER 1MG) As Ordered ONE (12:47)
[2022-04-01] MEDS ORDERED: propofoL 200 MG/20 ML VIAL As Ordered ONE (12:47)
[2022-04-01] MEDS ORDERED: SUGAMMADEX SODIUM 500 MG/5 ML VIAL (BRIDION) As Ordered ONE (12:47)
[2022-04-01] MEDS ORDERED: LIDOCAINE 2% 100MG/5ML SDV (FOR ANES.) As Ordered ONE (12:47)
[2022-04-01] MEDS ORDERED: HYDROmorphone HCL 2MG/ML 1ML VIAL As Ordered ONE (12:47)
[2022-04-01] MEDS ORDERED: ONDANSETRON 4MG/2ML VIAL As Ordered ONE (12:47)
[2022-04-01] MEDS ORDERED: fentaNYL 100 MCG/2 ML INJECTION As Ordered ONE (12:47)
[2022-04-01] MEDS ORDERED: dexameTHASONE 4 MG/ML 1ML VIAL (J1100 PER 1MG) As Ordered ONE (12:47)
[2022-04-01] MEDS ORDERED: PHENYLephrine 500MCG 5ML (100MCG/ML) SYRINGE As Ordered ONE (14:43)
[2022-04-01] MEDS: INSULIN LISPRO (NovoLOG) PER UNIT SC SCH ×2 (17:30→20:32)
[2022-04-01] MEDS ORDERED: DEXTROSE 50% 50 ML SYRINGE IV PRN (17:35)
[2022-04-01] MEDS ORDERED: ONDANSETRON 4MG/2ML VIAL IV PRN ×2 (17:35→17:45)
[2022-04-01] MEDS ORDERED: PERCOCET 5MG/325MG TAB PO PRN ×2 (17:35)
[2022-04-01] MEDS ORDERED: GLUCOSE 4GM CHEW TABLET PO PRN (17:35)
[2022-04-01] MEDS ORDERED: NS 1,000 ML IV SCH (17:35)
[2022-04-01] MEDS ORDERED: GLUCAGON INJ 1MG VIAL SC PRN (17:35)
[2022-04-01] MEDS ORDERED: LR 1,000 ML IV SCH (17:45)
[2022-04-01] MEDS ORDERED: METOCLOPRAMIDE INJ 10MG/2ML VIAL (J2765 PER 1) IV PRN (17:45)
[2022-04-01] MEDS ORDERED: HYDROMORPHONE HCL 0.5 MG/ 0.5 ML SYRINGE (J1170 PER 1) IV PRN (17:45)
[2022-04-01] MEDS ORDERED: fentaNYL 100 MCG/2 ML INJECTION IV PRN (17:45)
[2022-04-01] MEDS ORDERED: oxyCODONE 5MG TAB PO PRN (17:45)
[2022-04-01 18:14] LABS: HEMATOCRIT 37.8 % (42.0-52.0); HEMOGLOBIN 12.6 g/dl (13.5-17.5); MEAN CORPUSCULAR HEMOGLOBIN 32.1 pg (27.0-33.0); MEAN CORPUSCULAR HGB CONC 33.3 g/dl (32.0-36.5); MEAN CORPUSCULAR VOLUME 96.2 fl (80.0-96.0); PLATELET COUNT, AUTOMATED 170 10^3/uL (150-450); RED BLOOD COUNT 3.93 10^6/uL (4.30-6.10); WHITE BLOOD COUNT 9.6 10^3/uL (4.0-10.0)
[2022-04-01 18:23] LABS: CALCIUM LEVEL 8.4 MG/DL (8.8-10.2); CREATININE FOR GFR 1.46 MG/DL (0.70-1.30); GLOMERULAR FILTRATION RATE 50.8 (>42); POTASSIUM SERUM 3.9 MEQ/L (3.5-5.1)
[2022-04-01 18:35] VITALS: BP_SYST 102; BP_DIAS 63; BP_DIAS 64
[2022-04-01 19:05] VITALS: BP 102/63
[2022-04-01 20:00] VITALS: BP 102/62
[2022-04-01] MEDS: POTASSIUM CHLORIDE 10MEQ SR TABLET PO SCH (20:16)
[2022-04-01] MEDS: DOCUSATE SODIUM 100MG CAPSULE PO SCH (20:16)
[2022-04-01] MEDS: GABAPENTIN 300 MG CAP PO SCH (20:16)
[2022-04-01] MEDS: PRAVASTATIN 20 MG TAB PO SCH (20:16)
[2022-04-01] MEDS: ceFAZolin SOD 1 GM in D5W MINI-BAG PLUS 50 ML IV SCH (20:17)
[2022-04-01 21:00] VITALS: BP 113/74
[2022-04-01] MEDS: HEPARIN SOD (PORCINE) 5000UNITS/ML 1ML VIAL/SYRINGE SC SCH (21:52)
[2022-04-01 22:00] VITALS: BP 88/54
[2022-04-01 23:00] VITALS: BP 119/70
[2022-04-02] VITALS: BP 99/64
[2022-04-02 04:00] VITALS: BP 124/79
[2022-04-02] MEDS: ceFAZolin SOD 1 GM in D5W MINI-BAG PLUS 50 ML IV SCH (04:31)
[2022-04-02] MEDS: HEPARIN SOD (PORCINE) 5000UNITS/ML 1ML VIAL/SYRINGE SC SCH ×3 (05:31→21:36)
[2022-04-02 06:00] VITALS: BP 117/77
[2022-04-02 07:15] LABS: HEMATOCRIT 35.6 % (42.0-52.0); HEMOGLOBIN 11.5 g/dl (13.5-17.5); MEAN CORPUSCULAR HEMOGLOBIN 31.3 pg (27.0-33.0); MEAN CORPUSCULAR HGB CONC 32.3 g/dl (32.0-36.5); MEAN CORPUSCULAR VOLUME 96.7 fl (80.0-96.0); PLATELET COUNT, AUTOMATED 159 10^3/uL (150-450); RED BLOOD COUNT 3.68 10^6/uL (4.30-6.10); WHITE BLOOD COUNT 7.4 10^3/uL (4.0-10.0)
[2022-04-02 07:41] LABS: CALCIUM LEVEL 8.3 MG/DL (8.8-10.2); CREATININE FOR GFR 1.45 MG/DL (0.70-1.30); GLOMERULAR FILTRATION RATE 51.2 (>42); POTASSIUM SERUM 3.9 MEQ/L (3.5-5.1)
[2022-04-02] MEDS: INSULIN LISPRO (NovoLOG) PER UNIT SC SCH ×4 (08:44→21:00)
[2022-04-02] MEDS: METOPROLOL SUCC (TopROL XL) 50MG **XL** TAB PO SCH (08:46)
[2022-04-02] MEDS: DOCUSATE SODIUM 100MG CAPSULE PO SCH ×2 (08:47→21:36)
[2022-04-02] MEDS: allopurinoL 300 MG TAB PO SCH (08:47)
[2022-04-02] MEDS: CitaloPRAM (CeleXA) 20 MG TAB PO SCH (08:47)
[2022-04-02] MEDS: TORSEMIDE 10 MG TABLET PO SCH (08:47)
[2022-04-02] MEDS: POTASSIUM CHLORIDE 10MEQ SR TABLET PO SCH ×2 (08:48→21:36)
[2022-04-02] MEDS: GABAPENTIN 300 MG CAP PO SCH ×3 (08:48→21:36)
[2022-04-02] MEDS: ACETAMINOPHEN TAB 650MG DOSE (2X325MG) PO PRN ×2 (08:53→21:37)
[2022-04-02 12:00] VITALS: BP 115/73
[2022-04-02] MEDS: BACTRIM 160MG/800MG DS TAB PO SCH (17:34)
[2022-04-02 20:03] VITALS: BP 111/71
[2022-04-02] MEDS: PRAVASTATIN 20 MG TAB PO SCH (21:36)
[2022-04-03 02:00] VITALS: BP 117/75
[2022-04-03] MEDS: HEPARIN SOD (PORCINE) 5000UNITS/ML 1ML VIAL/SYRINGE SC SCH ×2 (06:05→14:00)
[2022-04-03 06:24] LABS: HEMOGLOBIN 10.9 g/dl (13.5-17.5); MEAN CORPUSCULAR HEMOGLOBIN 32.6 pg (27.0-33.0); MEAN CORPUSCULAR VOLUME 98.8 fl (80.0-96.0); PLATELET COUNT, AUTOMATED 131 10^3/uL (150-450); RED BLOOD COUNT 3.34 10^6/uL (4.30-6.10); WHITE BLOOD COUNT 5.5 10^3/uL (4.0-10.0)
[2022-04-03 06:39] VITALS: BP 111/70
[2022-04-03 06:45] LABS: CALCIUM LEVEL 8.3 MG/DL (8.8-10.2); CREATININE FOR GFR 1.46 MG/DL (0.70-1.30); GLOMERULAR FILTRATION RATE 50.8 (>42); POTASSIUM SERUM 4.4 MEQ/L (3.5-5.1)
[2022-04-03] MEDS: INSULIN LISPRO (NovoLOG) PER UNIT SC SCH ×2 (07:51→12:39)
[2022-04-03] MEDS: GABAPENTIN 300 MG CAP PO SCH (08:12)
[2022-04-03] MEDS: DOCUSATE SODIUM 100MG CAPSULE PO SCH (08:12)
[2022-04-03] MEDS: CitaloPRAM (CeleXA) 20 MG TAB PO SCH (08:12)
[2022-04-03] MEDS: POTASSIUM CHLORIDE 10MEQ SR TABLET PO SCH (08:12)
[2022-04-03 08:13] VITALS: BP 114/72
[2022-04-03] MEDS: BACTRIM 160MG/800MG DS TAB PO SCH (08:13)
[2022-04-03] MEDS: METOPROLOL SUCC (TopROL XL) 50MG **XL** TAB PO SCH (08:13)
[2022-04-03] MEDS: TORSEMIDE 10 MG TABLET PO SCH (08:13)
[2022-04-03] MEDS: allopurinoL 300 MG TAB PO SCH (08:13)
[2022-04-03] MEDS ORDERED: PERCOCET PO (09:06)
[2022-04-03] MEDS ORDERED: COLA100C5 PO (09:06)
[2022-04-03] MEDS ORDERED: BACTDSTA PO (09:06)
[2022-04-03 14:00] VITALS: BP 116/73
== END 2022-04-03 16:00 | disposition home or self-care (01) | DRG 708 ==
LOC: M OR 04-01 09:52 → M MS5PR 04-01 18:30
PROVIDERS: ADMIT Urology; ATTEND Urology
PROC: 07TC4ZZ Resection of Pelvis Lymphatic, Percutaneous Endoscopic Approach (ICD-10-PCS; 2022-04-01)
PROC: 8E0W4CZ Robotic Assisted Procedure of Trunk Region, Percutaneous Endoscopic Approach (ICD-10-PCS; 2022-04-01)
PROC: 0VT04ZZ Resection of Prostate, Percutaneous Endoscopic Approach (ICD-10-PCS; principal; 2022-04-01 12:15)
DX: C61 Malignant neoplasm of prostate (principal); Z79.899 Other long term (current) drug therapy; R11.10 Vomiting, unspecified

== ENCOUNTER → 2022-03-27 | Outpatient (CLI) | payer MEDICAID, MEDICARE | LOC: M LABSMTC 09:20 | PROVIDERS: ATTEND Anesthesiology | DX: Z01.812 Encounter for preprocedural laboratory examination (principal); Z20.822 Contact with and (suspected) exposure to COVID-19 ==

== ENCOUNTER → 2022-03-30 | Outpatient (REF) | payer MEDICARE ==
[2022-03-30 13:59] LABS: APPEARANCE, URINE CLEAR (CLEAR); BACTERIA, URINE AUTO NEGATIVE (NEGATIVE); BILIRUBIN, URINE AUTO NEGATIVE (NEGATIVE); BLOOD, URINE BLOOD NEGATIVE (NEGATIVE); COLOR, URINE YELLOW (YELLOW); GLUCOSE, URINE (UA) AUTO NEGATIVE (NEGATIVE); KETONE, URINE AUTO NEGATIVE (NEGATIVE); LEUKOCYTE ESTERASE, URINE AUTO NEGATIVE (NEGATIVE); MUCUS, URINE SMALL (NEGATIVE); NITRITE, URINE AUTO NEGATIVE (NEGATIVE); PROTEIN, URINE AUTO NEGATIVE (NEGATIVE); RBC, URINE AUTO 0 /HPF (0-3); SPECIFIC GRAVITY URINE AUTO 1.013 (1.002-1.035); SQUAMOUS EPITHELIAL CELL UR AU 0 /HPF (0-6); UROBILINOGEN, URINE AUTO 0.2 mg/dL (0.0-2.0); WBC, URINE AUTO 0 /HPF (0-3)
== END ==
LOC: M SMT 13:08
PROVIDERS: ATTEND Nurse Practitioner Women's Health
DX: C61 Malignant neoplasm of prostate (principal); Z79.899 Other long term (current) drug therapy

== ENCOUNTER → 2022-04-30 | Outpatient (REF) | payer MEDICARE, MEDICAID ==
[~2022-04-30] MED LIST changes: +BACTDSTA PO; +PERCOCET PO
[2022-05-01 14:05] LABS: APPEARANCE, URINE CLEAR (CLEAR); BACTERIA, URINE AUTO NEGATIVE (NEGATIVE); BILIRUBIN, URINE AUTO NEGATIVE (NEGATIVE); BLOOD, URINE BLOOD 2+ (NEGATIVE); COLOR, URINE YELLOW (YELLOW); GLUCOSE, URINE (UA) AUTO NEGATIVE (NEGATIVE); KETONE, URINE AUTO NEGATIVE (NEGATIVE); LEUKOCYTE ESTERASE, URINE AUTO TRACE (NEGATIVE); MUCUS, URINE SMALL (NEGATIVE); NITRITE, URINE AUTO NEGATIVE (NEGATIVE); PROTEIN, URINE AUTO 1+ mg/dL (NEGATIVE); RBC, URINE AUTO 19 /HPF (0-3); SPECIFIC GRAVITY URINE AUTO 1.019 (1.002-1.035); SQUAMOUS EPITHELIAL CELL UR AU 2 /HPF (0-6); UROBILINOGEN, URINE AUTO 0.2 mg/dL (0.0-2.0); WBC, URINE AUTO 10 /HPF (0-3)
== END ==
LOC: M SMT 12:54
PROVIDERS: ATTEND Urology
DX: N39.0 Urinary tract infection, site not specified (principal)

== ENCOUNTER → 2022-05-11 | Outpatient (CLI) | payer MEDICARE, MEDICAID | LOC: M LAB 09:09 | PROVIDERS: ATTEND Urology | DX: C61 Malignant neoplasm of prostate (principal) ==

== ENCOUNTER → 2022-08-10 | Outpatient (CLI) | payer MEDICARE, MEDICAID ==
[~2022-08-10] MED LIST changes: +FISH10005 PO; -FISH7.5C PO
== END ==
LOC: M LAB 09:05
PROVIDERS: ATTEND Urology
DX: C61 Malignant neoplasm of prostate (principal)

== ENCOUNTER → 2022-08-27 | Outpatient (REF) | payer MEDICARE, MEDICAID | LOC: M SMT 17:34 | PROVIDERS: ATTEND Urology | DX: R32 Unspecified urinary incontinence (principal) ==

== ENCOUNTER → 2022-08-28 | Outpatient (REF) | payer MEDICARE, MEDICAID ==
[2022-08-29 14:14] LABS: SSA SJOGRENS A <0.2 AI (0.0-0.9); SSB SJOGRENS B <0.2 AI (0.0-0.9)
== END ==
LOC: M LAB REF 12:25
PROVIDERS: ATTEND Nurse Practitioner Adult Health
DX: R68.2 Dry mouth, unspecified (principal)

== ENCOUNTER → 2022-09-17 | Outpatient (CLI) | payer MEDICARE, MEDICAID ==
[~2022-09-17] MED LIST changes: +E-Z-GAS II EFFERVESCENT PACKET (SODIUM BICARB./CITRIC ACID/SIMETHICONE) As Ordered ONE; +E-Z-HD 98% w/w 340GM SUSP BTL As Ordered ONE; +E-Z-PAQUE 96% w/w SUSP 176GM BTL As Ordered ONE
== END ==
LOC: M RAD 09:51
PROVIDERS: ATTEND Nurse Practitioner Adult Health
DX: R13.10 Dysphagia, unspecified (principal); K21.9 Gastro-esophageal reflux disease without esophagitis; Z98.84 Bariatric surgery status

== ENCOUNTER → 2022-11-23 | Outpatient (CLI) | payer MEDICARE, MEDICAID ==
[~2022-11-23] MED LIST changes: -E-Z-GAS II EFFERVESCENT PACKET (SODIUM BICARB./CITRIC ACID/SIMETHICONE) As Ordered ONE; -E-Z-HD 98% w/w 340GM SUSP BTL As Ordered ONE; -E-Z-PAQUE 96% w/w SUSP 176GM BTL As Ordered ONE
== END ==
LOC: M LAB 11:09
PROVIDERS: ATTEND Urology
DX: C61 Malignant neoplasm of prostate (principal)

== ENCOUNTER → 2023-06-11 | Outpatient (CLI) | payer MEDICARE, MEDICAID ==
[~2023-06-11] MED LIST changes: +ACET1TAB55 PO; +AMLO1TAB24 PO; +ARTIDRO4 OD; +BUSP5TA PO; +CEPH500C PO; +CYAN-1 PO; -CYAN100050 PO; +DOCU100C16 PO; +OXYB10TA23 PO; +SEMA1PEN2 SC; +SUCR1ORA2 PO
== END ==
LOC: M LAB 13:57
PROVIDERS: ATTEND Urology
DX: C61 Malignant neoplasm of prostate (principal)

== ENCOUNTER 2023-09-21 12:13 | Day surgery (SDC) | payer MEDICARE, MEDICAID ==
[~2023-09-21] VITALS: Ht 188 cm; Wt 111.9 kg
[~2023-09-21 12:13] MED LIST changes: +NS 1,000 ML IV ONE
[2023-09-21] MEDS ORDERED: LIDOCAINE 2% 100MG/5ML SDV (FOR ANES.) As Ordered ONE (13:47)
[2023-09-21] MEDS ORDERED: propofoL 200 MG/20 ML VIAL As Ordered ONE ×2 (13:47→14:00)
[2023-09-21 14:12] VITALS: TEMP 98.9
[2023-09-21 14:32] VITALS: BP 167/93; O2SAT 98
== END 2023-09-21 14:40 | disposition home or self-care (01) ==
LOC: M OPP 12:13
PROVIDERS: ATTEND Internal Medicine Gastroenterology
DX: R13.12 Dysphagia, oropharyngeal phase (principal); R13.14 Dysphagia, pharyngoesophageal phase; Z98.0 Intestinal bypass and anastomosis status; E11.9 Type 2 diabetes mellitus without complications; G47.33 Obstructive sleep apnea (adult) (pediatric); Z99.89 Dependence on other enabling machines and devices; Z95.810 Presence of automatic (implantable) cardiac defibrillator; Z87.891 Personal history of nicotine dependence; Z79.01 Long term (current) use of anticoagulants; Z79.1 Long term (current) use of non-steroidal anti-inflammatories (NSAID); Z79.51 Long term (current) use of inhaled steroids; Z79.83 Long term (current) use of bisphosphonates; Z79.85 Long-term (current) use of injectable non-insulin antidiabetic drugs; Z79.891 Long term (current) use of opiate analgesic; Z79.899 Other long term (current) drug therapy

== ENCOUNTER → 2023-10-27 | Outpatient (CLI) | payer MEDICARE, MEDICAID ==
[~2023-10-27] MED LIST changes: -NS 1,000 ML IV ONE
[2023-10-27 12:08] LABS: HEMATOCRIT 37.1 % (42.0-52.0); HEMOGLOBIN 11.9 g/dl (13.5-17.5); MEAN CORPUSCULAR HEMOGLOBIN 28.6 pg (27.0-33.0); MEAN CORPUSCULAR HGB CONC 32.1 g/dl (32.0-36.5); MEAN CORPUSCULAR VOLUME 89.2 fl (80.0-96.0); PLATELET COUNT, AUTOMATED 188 10^3/uL (150-450); RED BLOOD COUNT 4.16 10^6/uL (4.30-6.10); WHITE BLOOD COUNT 4.9 10^3/uL (4.0-10.0)
[2023-10-27 12:30] LABS: BLOOD UREA NITROGEN 21 MG/DL (9-23); CALCIUM LEVEL 8.3 MG/DL (8.3-10.6); CARBON DIOXIDE LEVEL 30 MMOL/L (20-31); CHLORIDE LEVEL 104 MMOL/L (98-107); CREATININE FOR GFR 1.15 MG/DL (0.70-1.30); GLOMERULAR FILTRATION RATE > 60.0 (>42); GLUCOSE, FASTING 99 MG/DL (74-106); MAGNESIUM LEVEL 1.7 MG/DL (1.8-2.4); POTASSIUM SERUM 3.4 MMOL/L (3.5-5.1); SODIUM LEVEL 139 MMOL/L (136-145)
== END ==
LOC: M LAB 11:25
PROVIDERS: ATTEND Physician Assistant
DX: I50.32 Chronic diastolic (congestive) heart failure (principal); I48.21 Permanent atrial fibrillation; I47.20 Ventricular tachycardia, unspecified

== ENCOUNTER → 2023-12-10 | Outpatient (CLI) | payer MEDICARE ==
[~2023-12-10] MED LIST changes: +FARX1TAB3 PO; +PANT20TA6 PO; +POTA-298 PO
[2023-12-10 12:46] LABS: BLOOD UREA NITROGEN 22 MG/DL (9-23); CALCIUM LEVEL 8.1 MG/DL (8.3-10.6); CARBON DIOXIDE LEVEL 25 MMOL/L (20-31); CHLORIDE LEVEL 110 MMOL/L (98-107); GLOMERULAR FILTRATION RATE > 60.0 (>42); GLUCOSE, FASTING 160 MG/DL (74-106); POTASSIUM SERUM 3.7 MMOL/L (3.5-5.1); SODIUM LEVEL 142 MMOL/L (136-145)
== END ==
LOC: M LAB 11:36
PROVIDERS: ATTEND Physician Assistant
DX: I50.32 Chronic diastolic (congestive) heart failure (principal); I48.21 Permanent atrial fibrillation; I47.20 Ventricular tachycardia, unspecified

== ENCOUNTER → 2023-12-26 | Outpatient (CLI) | payer MEDICARE | LOC: M LAB 13:55 | PROVIDERS: ATTEND Urology | DX: C61 Malignant neoplasm of prostate (principal) ==

== ENCOUNTER → 2024-01-26 | Outpatient (CLI) | payer MEDICARE ==
[~2024-01-26] MED LIST changes: +BARIUM SULFATE 700 MG TABLET (E-Z-DISK) As Ordered ONE; +E-Z-PAQUE 96% w/w SUSP 176GM BTL As Ordered ONE; +VARIBAR NECTAR 40% w/v 240ML SUSP BTL As Ordered ONE; +VARIBAR PUDDING 40% w/v 230ML TUBE As Ordered ONE
== END ==
LOC: M RAD 11:09
PROVIDERS: ATTEND Physician Assistant Medical
DX: R13.10 Dysphagia, unspecified (principal)

== ENCOUNTER → 2024-02-10 | Outpatient (REF) | payer MEDICARE, MEDICAID ==
[~2024-02-10] MED LIST changes: -BARIUM SULFATE 700 MG TABLET (E-Z-DISK) As Ordered ONE; -E-Z-PAQUE 96% w/w SUSP 176GM BTL As Ordered ONE; -VARIBAR NECTAR 40% w/v 240ML SUSP BTL As Ordered ONE; -VARIBAR PUDDING 40% w/v 230ML TUBE As Ordered ONE
== END ==
LOC: M LAB REF 12:09
PROVIDERS: ATTEND Nurse Practitioner Family
DX: C43.59 Malignant melanoma of other part of trunk (principal)

== ENCOUNTER → 2024-02-17 | Outpatient (REF) | payer MEDICARE, MEDICAID | LOC: M LAB REF 11:45 | PROVIDERS: ATTEND Nurse Practitioner Family | DX: C43.59 Malignant melanoma of other part of trunk (principal) ==

== ENCOUNTER → 2024-02-24 | Outpatient (REF) | payer MEDICARE, MEDICAID | LOC: M LAB REF 12:02 | PROVIDERS: ATTEND Nurse Practitioner Family | DX: C43.59 Malignant melanoma of other part of trunk (principal) ==

== ENCOUNTER → 2024-03-02 | Outpatient (REF) | payer MEDICARE, MEDICAID | LOC: M LAB REF 12:36 | PROVIDERS: ATTEND Nurse Practitioner Family | DX: C43.59 Malignant melanoma of other part of trunk (principal) ==

== ENCOUNTER → 2024-03-09 | Outpatient (REF) | payer MEDICARE, MEDICAID | LOC: M LAB REF 11:29 | PROVIDERS: ATTEND Nurse Practitioner Family | DX: C43.59 Malignant melanoma of other part of trunk (principal) ==

== ENCOUNTER → 2024-03-15 | Outpatient (CLI) | payer MEDICARE, MEDICAID | LOC: M LAB 07:56 | PROVIDERS: ATTEND Urology | DX: C61 Malignant neoplasm of prostate (principal) ==

== ENCOUNTER → 2024-03-16 | Outpatient (REF) | payer MEDICARE, MEDICAID | LOC: M LAB REF 11:28 | PROVIDERS: ATTEND Nurse Practitioner Family | DX: C43.59 Malignant melanoma of other part of trunk (principal) ==

== ENCOUNTER → 2024-03-20 | Outpatient (CLI) | payer MEDICARE, MEDICAID | LOC: M LAB 08:08 | PROVIDERS: ATTEND Internal Medicine | DX: C43.59 Malignant melanoma of other part of trunk (principal) ==

== ENCOUNTER → 2024-03-28 | Outpatient (REF) | payer MEDICARE, MEDICAID ==
[2024-03-28 17:45] LABS: APPEARANCE, URINE HAZY (CLEAR); BACTERIA, URINE AUTO 1+ (NEGATIVE); BILIRUBIN, URINE AUTO NEGATIVE (NEGATIVE); BLOOD, URINE BLOOD 3+ (NEGATIVE); COLOR, URINE YELLOW (YELLOW); GLUCOSE, URINE (UA) AUTO 3+ mg/dL (NEGATIVE); KETONE, URINE AUTO NEGATIVE (NEGATIVE); LEUKOCYTE ESTERASE, URINE AUTO TRACE (NEGATIVE); NITRITE, URINE AUTO NEGATIVE (NEGATIVE); PROTEIN, URINE AUTO 1+ mg/dL (NEGATIVE); RBC, URINE AUTO TNTC /HPF (0-3); SPECIFIC GRAVITY URINE AUTO 1.011 (1.002-1.035); SQUAMOUS EPITHELIAL CELL UR AU 0 /HPF (0-6); UROBILINOGEN, URINE AUTO 0.2 mg/dL (0.0-2.0); WBC, URINE AUTO 26 /HPF (0-3)
== END ==
LOC: M SMT 16:57
PROVIDERS: ATTEND Urology
DX: R31.0 Gross hematuria (principal)

== ENCOUNTER → 2024-06-19 | Outpatient (CLI) | payer MEDICARE ==
[~2024-06-19] MED LIST changes: +ISOVUE-370 76% 100ML VIAL As Ordered ONE; +PROA1AER2 INH
== END ==
LOC: M RAD 08:13
PROVIDERS: ATTEND Internal Medicine Medical Oncology
DX: R91.8 Other nonspecific abnormal finding of lung field (principal); J98.11 Atelectasis; I51.7 Cardiomegaly; I25.10 Atherosclerotic heart disease of native coronary artery without angina pectoris; Z95.0 Presence of cardiac pacemaker; K57.90 Diverticulosis of intestine, part unspecified, without perforation or abscess without bleeding
CPT/HCPCS: 71260; Q9967

== ENCOUNTER → 2024-07-24 | Outpatient (REF) | payer MEDICARE, MEDICAID ==
[~2024-07-24] MED LIST changes: -ISOVUE-370 76% 100ML VIAL As Ordered ONE
== END ==
LOC: M SFHCDERM 16:41
PROVIDERS: ATTEND Physician Assistant
DX: L08.9 Local infection of the skin and subcutaneous tissue, unspecified (principal)

== ENCOUNTER → 2024-10-03 | Outpatient (CLI) | payer MEDICARE, MEDICAID ==
[~2024-10-03] MED LIST changes: +ALBU8.5H INH
== END ==
LOC: M PLAIMG 08:45
PROVIDERS: ATTEND Dietitian, Registered
DX: C43.9 Malignant melanoma of skin, unspecified (principal); Z53.9 Procedure and treatment not carried out, unspecified reason

== ENCOUNTER 2024-10-04 01:26 | Inpatient (IN) | payer MEDICARE, MEDICAID ==
[~2024-10-04] VITALS: Ht 188 cm; Wt 113.8 kg
[~2024-10-04 01:26] MED LIST changes: -ALBU8.5H INH
[2024-10-04 01:52] LABS: BASO % 0.6 % (0.0-1.0); EOS # 0.1 10^3/uL (0.0-0.5); EOS % 1.7 % (0.0-3.0); HEMATOCRIT 33.9 % (42.0-52.0); HEMOGLOBIN 10.5 g/dl (13.5-17.5); LYMPH # 1.3 10^3/uL (1.5-5.0); MEAN CORPUSCULAR VOLUME 90.4 fl (80.0-96.0); MONO # 0.7 10^3/uL (0.0-0.8); MONO % 9.9 % (2.0-8.0); NEUTROPHILS # 4.8 10^3/uL (1.5-8.5); NEUTROPHILS % 68.5 % (36.0-66.0); PLATELET COUNT, AUTOMATED 193 10^3/uL (150-450); RED BLOOD COUNT 3.75 10^6/uL (4.30-6.10)
[2024-10-04 02:17] LABS: LIPASE 29 U/L (12-53)
[2024-10-04 02:19] LABS: ALBUMIN 3.5 G/DL (3.2-5.2); ALKALINE PHOSPHATASE 95 U/L (40-129); ALT/SGPT 18 U/L (7.0-40); AST/SGOT 13 U/L (<34); BILIRUBIN,DIRECT 0.3 MG/DL (<0.4); BILIRUBIN,TOTAL 0.6 MG/DL (0.3-1.2); BLOOD UREA NITROGEN 19 MG/DL (9-23); CALCIUM LEVEL 8.3 MG/DL (8.3-10.6); CARBON DIOXIDE LEVEL 22 MMOL/L (20-31); CHLORIDE LEVEL 111 MMOL/L (98-107); GLOMERULAR FILTRATION RATE > 60.0 (>42); GLUCOSE, FASTING 173 MG/DL (74-106); POTASSIUM SERUM 4.6 MMOL/L (3.5-5.1); SODIUM LEVEL 139 MMOL/L (136-145); TOTAL PROTEIN 6.7 G/DL (5.7-8.2)
[2024-10-04] MEDS: KETOROLAC 30 MG/ML 1ML VIAL IV ONE (05:07)
[2024-10-04] MEDS: GASTROGRAFIN SOLUTION 30ML PO SCH (05:59)
[2024-10-04] MEDS: fentaNYL 100 MCG/2 ML INJECTION IV ONE (06:29)
[2024-10-04] MEDS ORDERED: ISOVUE-370 76% 100ML VIAL As Ordered ONE (07:35)
[2024-10-04 09:22] LABS: HEMOGLOBIN 9.7 g/dl (13.5-17.5)
[2024-10-04] MEDS ORDERED: CEPH500C PO (10:14)
[2024-10-04] MEDS ORDERED: ALBU8.5H INH (10:14)
[2024-10-04] MEDS ORDERED: BUSP5TA PO (10:14)
[2024-10-04] MEDS ORDERED: HOME MED LIST COMPLETE! XX SCH (10:15)
[2024-10-04] MEDS ORDERED: MOM 30ML SUSPENSION UDC PO PRN (11:25)
[2024-10-04] MEDS ORDERED: ACETAMINOPHEN 325 MG TAB PO PRN (11:25)
[2024-10-04] MEDS ORDERED: MAALOX 30 ML SUSP *UDC PO PRN (11:25)
[2024-10-04 12:22] LABS: HEMATOCRIT 30.2 % (42.0-52.0); HEMOGLOBIN 9.6 g/dl (13.5-17.5)
[2024-10-04 12:44] LABS: INR 1.3; PROTHROMBIN TIME 16.5 SECONDS (12.5-14.5)
[2024-10-04 13:11] VITALS: BP 111/76; TEMP 98.8; O2SAT 98
[2024-10-04] MEDS ORDERED: MORPHINE 2 MG/ML 1ML VIAL IV PRN (14:05)
[2024-10-04 16:00] VITALS: BP 110/77; TEMP 97.9; O2SAT 96
[2024-10-04 16:01] LABS: HEMATOCRIT 29.5 % (42.0-52.0); HEMOGLOBIN 9.4 g/dl (13.5-17.5)
[2024-10-04] MEDS ORDERED: GLUCOSE 4 GM CHEW PO PRN (18:10)
[2024-10-04] MEDS ORDERED: DEXTROSE 50% 50ML SYRINGE IV PRN (18:10)
[2024-10-04] MEDS ORDERED: GLUCAGON INJ 1MG VIAL SC PRN (18:10)
[2024-10-04] MEDS ORDERED: ALBUTEROL 90 MCG/ACT 8GM HFA INHALER INH PRN (18:10)
[2024-10-04 20:00] VITALS: BP 134/82; TEMP 98; O2SAT 97
[2024-10-04 20:13] LABS: HEMATOCRIT 28.2 % (42.0-52.0)
[2024-10-04] MEDS: GABAPENTIN 300 MG CAP PO SCH (20:17)
[2024-10-04] MEDS: busPIRone 5 MG TAB PO SCH (20:17)
[2024-10-04] MEDS: OMEGA-3 1000MG CAPSULE PO SCH (20:17)
[2024-10-04] MEDS: PRAVASTATIN 20 MG TAB PO SCH (20:17)
[2024-10-04] MEDS: INSULIN LISPRO (NovoLOG) PER UNIT SC SCH (20:19)
[2024-10-04] MEDS: MORPHINE 2 MG/ML 1ML VIAL IV PRN (20:21)
[2024-10-05] VITALS (19 sets, daily range): BP systolic 90–151; BP diastolic 50–86; TEMP 98–98.7; O2SAT 94–99
[2024-10-05 00:30] LABS: HEMATOCRIT 27.2 % (42.0-52.0); HEMOGLOBIN 8.6 g/dl (13.5-17.5)
[2024-10-05 02:01] LABS: CALCIUM LEVEL 8.4 MG/DL (8.3-10.6); CREATININE FOR GFR 1.37 MG/DL (0.70-1.30); GLOMERULAR FILTRATION RATE 54.4 (>42); MAGNESIUM LEVEL 2.2 MG/DL (1.8-2.4); POTASSIUM SERUM 4.6 MMOL/L (3.5-5.1)
[2024-10-05 04:28] LABS: HEMATOCRIT 27.9 % (42.0-52.0); HEMOGLOBIN 8.6 g/dl (13.5-17.5)
[2024-10-05] MEDS: INSULIN LISPRO (NovoLOG) PER UNIT SC SCH (07:24)
[2024-10-05 08:23] LABS: BASO % 0.5 % (0.0-1.0); EOS # 0.1 10^3/uL (0.0-0.5); EOS % 0.9 % (0.0-3.0); HEMATOCRIT 29.9 % (42.0-52.0); HEMOGLOBIN 9.3 g/dl (13.5-17.5); LYMPH # 1.7 10^3/uL (1.5-5.0); LYMPH % 22.6 % (24.0-44.0); MEAN CORPUSCULAR HEMOGLOBIN 28.4 pg (27.0-33.0); MEAN CORPUSCULAR HGB CONC 31.1 g/dl (32.0-36.5); MEAN CORPUSCULAR VOLUME 91.2 fl (80.0-96.0); MONO # 0.8 10^3/uL (0.0-0.8); MONO % 10.5 % (2.0-8.0); NEUTROPHILS # 4.9 10^3/uL (1.5-8.5); PLATELET COUNT, AUTOMATED 186 10^3/uL (150-450); RED BLOOD COUNT 3.28 10^6/uL (4.30-6.10); WHITE BLOOD COUNT 7.5 10^3/uL (4.0-10.0)
[2024-10-05] MEDS: NS 1,000 ML IV ONE (08:44)
[2024-10-05] MEDS: MAGNESIUM GLUCONATE 500 MG TAB PO SCH (08:49)
[2024-10-05] MEDS: METOPROLOL SUCC (TopROL XL) 50MG **XL** TAB PO SCH (08:49)
[2024-10-05] MEDS: busPIRone 5 MG TAB PO SCH (08:49)
[2024-10-05] MEDS: POTASSIUM CHLORIDE 10MEQ SR TABLET PO SCH (08:50)
[2024-10-05] MEDS: DAPAGLIFLOZIN PROPANEDIOL 10MG TABLET (FARXIGA) PO SCH (08:50)
[2024-10-05] MEDS: PANTOPRAZOLE 20 MG TAB PO SCH (08:51)
[2024-10-05] MEDS: allopurinoL 300 MG TAB PO SCH (08:51)
[2024-10-05] MEDS: oxyBUTYnin *DITROPAN XL* 5 MG TABCR PO SCH (08:51)
[2024-10-05 12:17] LABS: HEMATOCRIT 25.2 % (42.0-52.0); HEMOGLOBIN 7.8 g/dl (13.5-17.5)
[2024-10-05] MEDS ORDERED: fentaNYL 100 MCG/2 ML INJECTION As Ordered ONE (13:36)
[2024-10-05] MEDS ORDERED: ISOVUE-300 61% 100ML VIAL As Ordered ONE (13:36)
[2024-10-05] MEDS ORDERED: HEPARIN 1,000UNITS/ML 10ML VIAL (FOR RADIOLOGY & DIALYSIS ONLY) As Ordered ONE (13:37)
[2024-10-05] MEDS ORDERED: LIDOCAINE 1% MDV 20ML VIAL As Ordered ONE (13:37)
[2024-10-05] MEDS ORDERED: MIDAZOLAM INJ 2MG/2ML VIAL As Ordered ONE (13:37)
[2024-10-05] MEDS ORDERED: ONDANSETRON 4MG 2ML VIAL IV PRN (17:05)
[2024-10-05 17:48] LABS: HEMATOCRIT 26.3 % (42.0-52.0); HEMOGLOBIN 8.3 g/dl (13.5-17.5)
[2024-10-05] MEDS: PERCOCET 5MG/325MG TAB PO PRN (17:50)
[2024-10-06] VITALS (13 sets, daily range): BP systolic 123–151; BP diastolic 65–82; TEMP 97.5–98.9; O2SAT 93–100
[2024-10-06 02:24] LABS: HEMATOCRIT 24.9 % (42.0-52.0); HEMOGLOBIN 7.8 g/dl (13.5-17.5)
[2024-10-06 14:01] LABS: BASO % 0.3 % (0.0-1.0); EOS # 0.1 10^3/uL (0.0-0.5); EOS % 1.8 % (0.0-3.0); HEMATOCRIT 29.5 % (42.0-52.0); HEMOGLOBIN 9.6 g/dl (13.5-17.5); LYMPH # 0.9 10^3/uL (1.5-5.0); LYMPH % 15.3 % (24.0-44.0); MEAN CORPUSCULAR HEMOGLOBIN 28.4 pg (27.0-33.0); MEAN CORPUSCULAR HGB CONC 32.5 g/dl (32.0-36.5); MEAN CORPUSCULAR VOLUME 87.3 fl (80.0-96.0); MONO # 0.7 10^3/uL (0.0-0.8); MONO % 10.7 % (2.0-8.0); NEUTROPHILS # 4.4 10^3/uL (1.5-8.5); NEUTROPHILS % 71.6 % (36.0-66.0); PLATELET COUNT, AUTOMATED 173 10^3/uL (150-450); RED BLOOD COUNT 3.38 10^6/uL (4.30-6.10); WHITE BLOOD COUNT 6.2 10^3/uL (4.0-10.0)
[2024-10-06 14:23] LABS: BLOOD UREA NITROGEN 23 MG/DL (9-23); CALCIUM LEVEL 8.5 MG/DL (8.3-10.6); CARBON DIOXIDE LEVEL 23 MMOL/L (20-31); CHLORIDE LEVEL 108 MMOL/L (98-107); CREATININE FOR GFR 1.03 MG/DL (0.70-1.30); GLOMERULAR FILTRATION RATE > 60.0 (>42); GLUCOSE, FASTING 115 MG/DL (74-106); POTASSIUM SERUM 4.4 MMOL/L (3.5-5.1); SODIUM LEVEL 138 MMOL/L (136-145)
[2024-10-07] VITALS (7 sets, daily range): BP systolic 126–162; BP diastolic 58–95; TEMP 97.1–98; O2SAT 95–100
[2024-10-07 07:14] LABS: BLOOD UREA NITROGEN 19 MG/DL (9-23); CALCIUM LEVEL 8.6 MG/DL (8.3-10.6); CARBON DIOXIDE LEVEL 26 MMOL/L (20-31); CHLORIDE LEVEL 106 MMOL/L (98-107); CREATININE FOR GFR 1.01 MG/DL (0.70-1.30); GLOMERULAR FILTRATION RATE > 60.0 (>42); GLUCOSE, FASTING 144 MG/DL (74-106); POTASSIUM SERUM 4.4 MMOL/L (3.5-5.1); SODIUM LEVEL 139 MMOL/L (136-145)
[2024-10-07 08:03] LABS: HEMATOCRIT 29.9 % (42.0-52.0); HEMOGLOBIN 9.6 g/dl (13.5-17.5); MEAN CORPUSCULAR HEMOGLOBIN 28.5 pg (27.0-33.0); MEAN CORPUSCULAR HGB CONC 32.1 g/dl (32.0-36.5); MEAN CORPUSCULAR VOLUME 88.7 fl (80.0-96.0); PLATELET COUNT, AUTOMATED 173 10^3/uL (150-450); RED BLOOD COUNT 3.37 10^6/uL (4.30-6.10); WHITE BLOOD COUNT 5.9 10^3/uL (4.0-10.0)
[2024-10-08] VITALS (8 sets, daily range): BP systolic 109–156; BP diastolic 61–95; TEMP 97.2–98.4; O2SAT 96–99
[2024-10-08 07:56] LABS: BASO % 0.2 % (0.0-1.0); EOS # 0.1 10^3/uL (0.0-0.5); EOS % 2.1 % (0.0-3.0); HEMOGLOBIN 10.1 g/dl (13.5-17.5); LYMPH # 0.9 10^3/uL (1.5-5.0); LYMPH % 15.1 % (24.0-44.0); MEAN CORPUSCULAR HEMOGLOBIN 28.4 pg (27.0-33.0); MEAN CORPUSCULAR HGB CONC 31.6 g/dl (32.0-36.5); MEAN CORPUSCULAR VOLUME 89.9 fl (80.0-96.0); MONO # 0.5 10^3/uL (0.0-0.8); MONO % 8.7 % (2.0-8.0); NEUTROPHILS # 4.2 10^3/uL (1.5-8.5); NEUTROPHILS % 73.6 % (36.0-66.0); PLATELET COUNT, AUTOMATED 199 10^3/uL (150-450); RED BLOOD COUNT 3.56 10^6/uL (4.30-6.10); WHITE BLOOD COUNT 5.8 10^3/uL (4.0-10.0)
[2024-10-08 09:24] LABS: BLOOD UREA NITROGEN 20 MG/DL (9-23); CALCIUM LEVEL 8.8 MG/DL (8.3-10.6); CARBON DIOXIDE LEVEL 24 MMOL/L (20-31); CHLORIDE LEVEL 107 MMOL/L (98-107); CREATININE FOR GFR 1.03 MG/DL (0.70-1.30); GLOMERULAR FILTRATION RATE > 60.0 (>42); GLUCOSE, FASTING 122 MG/DL (74-106); MAGNESIUM LEVEL 1.9 MG/DL (1.8-2.4); POTASSIUM SERUM 4.3 MMOL/L (3.5-5.1); SODIUM LEVEL 139 MMOL/L (136-145)
[2024-10-09 04:11] VITALS: BP 157/96; TEMP 97.3; O2SAT 98
[2024-10-09] MEDS: SYMBICORT 160/4.5MCG INHALER 6GM INH SCH (07:51)
[2024-10-09 07:56] VITALS: BP 144/91; TEMP 97.5; O2SAT 99
[2024-10-09 11:42] VITALS: BP 134/86; TEMP 97.5; O2SAT 98
[2024-10-10 04:11] VITALS: BP 144/86; TEMP 97.3; O2SAT 99
[2024-10-10 08:23] VITALS: BP 149/90
== END 2024-10-10 16:50 | disposition home health service (06) | DRG 988 ==
LOC: M ED 01:26 → M ED INP 11:22 → M ICU 13:11 → M PCU 10-06 06:49 → M MS5PR 10-08 11:10
PROVIDERS: ADMIT Student in an Organized Health Care Education/Training Program; ATTEND Student in an Organized Health Care Education/Training Program
PROC: 04L23DZ Occlusion of Gastric Artery with Intraluminal Device, Percutaneous Approach (ICD-10-PCS; principal; 2024-10-05 12:00)
PROC: 30233N1 Transfusion of Nonautologous Red Blood Cells into Peripheral Vein, Percutaneous Approach (ICD-10-PCS; 2024-10-06)
DX: M79.81 Nontraumatic hematoma of soft tissue (principal); D68.32 Hemorrhagic disorder due to extrinsic circulating anticoagulants; D62 Acute posthemorrhagic anemia; N17.9 Acute kidney failure, unspecified; I48.91 Unspecified atrial fibrillation; E11.42 Type 2 diabetes mellitus with diabetic polyneuropathy; I50.9 Heart failure, unspecified; I11.0 Hypertensive heart disease with heart failure; J44.9 Chronic obstructive pulmonary disease, unspecified; E78.5 Hyperlipidemia, unspecified; F32.A Depression, unspecified; F41.9 Anxiety disorder, unspecified; F40.240 Claustrophobia; D63.8 Anemia in other chronic diseases classified elsewhere; G47.00 Insomnia, unspecified; M10.9 Gout, unspecified; Z98.84 Bariatric surgery status; Z85.46 Personal history of malignant neoplasm of prostate; Z90.49 Acquired absence of other specified parts of digestive tract; Z79.899 Other long term (current) drug therapy; Z79.01 Long term (current) use of anticoagulants; Z95.810 Presence of automatic (implantable) cardiac defibrillator

== ENCOUNTER 2024-11-05 10:27 | Inpatient (IN) | payer MEDICARE, MEDICAID ==
[~2024-11-05] VITALS: Ht 188 cm; Wt 107.6 kg
[~2024-11-05 10:27] MED LIST changes: +ALBU8.5H INH
[2024-11-05] MEDS ORDERED: ISOVUE-370 76% 100ML VIAL As Ordered ONE (11:02)
[2024-11-05 11:12] LABS: BASO % 0.4 % (0.0-1.0); EOS # 0.1 10^3/uL (0.0-0.5); EOS % 0.6 % (0.0-3.0); HEMATOCRIT 44.7 % (42.0-52.0); HEMOGLOBIN 14.3 g/dl (13.5-17.5); MEAN CORPUSCULAR HEMOGLOBIN 30.1 pg (27.0-33.0); MEAN CORPUSCULAR VOLUME 94.1 fl (80.0-96.0); MONO # 0.7 10^3/uL (0.0-0.8); MONO % 8.5 % (2.0-8.0); NEUTROPHILS # 6.3 10^3/uL (1.5-8.5); NEUTROPHILS % 78.1 % (36.0-66.0); PLATELET COUNT, AUTOMATED 171 10^3/uL (150-450); RED BLOOD COUNT 4.75 10^6/uL (4.30-6.10)
[2024-11-05 11:27] LABS: INR 1.01; PARTIAL THROMBOPLASTIN TIME 24.6 SECONDS (24.8-34.2); PROTHROMBIN TIME 13.6 SECONDS (12.5-14.5)
[2024-11-05 11:46] LABS: ALBUMIN 4.3 G/DL (3.2-5.2); ALKALINE PHOSPHATASE 113 U/L (40-129); ALT/SGPT 17 U/L (7.0-40); AST/SGOT 28 U/L (<34); BILIRUBIN,DIRECT 0.6 MG/DL (<0.4); BILIRUBIN,TOTAL 1.5 MG/DL (0.3-1.2); BLOOD UREA NITROGEN 22 MG/DL (9-23); CARBON DIOXIDE LEVEL 23 MMOL/L (20-31); CHLORIDE LEVEL 104 MMOL/L (98-107); CK-MB VALUE MASS 1.1 NG/ML (<3.6); CPK CREATINE PHOSPHOKINASE 73 U/L (46-171); CREATININE FOR GFR 1.25 MG/DL (0.70-1.30); GLOMERULAR FILTRATION RATE > 60.0 (>42); GLUCOSE, FASTING 136 MG/DL (74-106); MAGNESIUM LEVEL 1.7 MG/DL (1.8-2.4); POTASSIUM SERUM 4.1 MMOL/L (3.5-5.1); SODIUM LEVEL 139 MMOL/L (136-145)
[2024-11-05] MEDS ORDERED: HOME MED LIST COMPLETE! XX SCH (13:45)
[2024-11-05] MEDS: levETIRAcetam INJection 1,000 MG in D5W 100 ML IV ONE (15:32)
[2024-11-05] MEDS ORDERED: ALBUTEROL 90 MCG/ACT 8GM HFA INHALER INH PRN (15:50)
[2024-11-05 17:10] VITALS: BP 162/100; TEMP 97.9; O2SAT 100
[2024-11-05] MEDS: GABAPENTIN 300 MG CAP PO SCH (17:13)
[2024-11-05] MEDS: amLODIPine 5 MG TAB PO ONE (17:15)
[2024-11-05 17:45] VITALS: BP 162/98
[2024-11-05] MEDS ORDERED: dexAMETHasone 4 MG TAB PO SCH (18:00)
[2024-11-05 18:23] VITALS: BP 168/96
[2024-11-05 20:00] VITALS: BP 154/86; TEMP 98.1; O2SAT 98
[2024-11-05] MEDS: ADVAIR HFA 230/21MCG INHALER INH SCH (20:04)
[2024-11-05] MEDS: DOCUSATE SODIUM 100MG CAPSULE PO SCH (20:23)
[2024-11-05] MEDS: levETIRAcetam 250MG TABLET (KEPPRA) PO SCH (20:24)
[2024-11-05] MEDS: busPIRone 5 MG TAB PO SCH (20:24)
[2024-11-05] MEDS: PRAVASTATIN 20 MG TAB PO SCH (20:24)
[2024-11-06 01:22] VITALS: BP 127/75
[2024-11-06 04:00] VITALS: BP 152/91; TEMP 97.5; O2SAT 98
[2024-11-06 06:01] LABS: BASO % 0.3 % (0.0-1.0); HEMATOCRIT 38.9 % (42.0-52.0); HEMOGLOBIN 12.8 g/dl (13.5-17.5); LYMPH # 0.4 10^3/uL (1.5-5.0); LYMPH % 10.9 % (24.0-44.0); MEAN CORPUSCULAR HEMOGLOBIN 30.8 pg (27.0-33.0); MEAN CORPUSCULAR HGB CONC 32.9 g/dl (32.0-36.5); MEAN CORPUSCULAR VOLUME 93.5 fl (80.0-96.0); MONO # 0.1 10^3/uL (0.0-0.8); MONO % 1.7 % (2.0-8.0); NEUTROPHILS % 86.5 % (36.0-66.0); PLATELET COUNT, AUTOMATED 142 10^3/uL (150-450); RED BLOOD COUNT 4.16 10^6/uL (4.30-6.10); WHITE BLOOD COUNT 3.5 10^3/uL (4.0-10.0)
[2024-11-06 06:19] LABS: BLOOD UREA NITROGEN 25 MG/DL (9-23); CALCIUM LEVEL 9.1 MG/DL (8.3-10.6); CARBON DIOXIDE LEVEL 23 MMOL/L (20-31); CHLORIDE LEVEL 105 MMOL/L (98-107); CREATININE FOR GFR 1.07 MG/DL (0.70-1.30); GLOMERULAR FILTRATION RATE > 60.0 (>42); GLUCOSE, FASTING 201 MG/DL (74-106); SODIUM LEVEL 138 MMOL/L (136-145)
[2024-11-06 07:56] LABS: MAGNESIUM LEVEL 1.8 MG/DL (1.8-2.4)
[2024-11-06] MEDS ORDERED: GLUCOSE 4 GM CHEW PO PRN (08:15)
[2024-11-06] MEDS ORDERED: GLUCAGON INJ 1MG VIAL SC PRN (08:15)
[2024-11-06] MEDS ORDERED: DEXTROSE 50% 50ML SYRINGE IV PRN (08:15)
[2024-11-06] MEDS: allopurinoL 300 MG TAB PO SCH (08:30)
[2024-11-06] MEDS: PANTOPRAZOLE 20 MG TAB PO SCH (08:31)
[2024-11-06] MEDS: DAPAGLIFLOZIN PROPANEDIOL 10MG TABLET (FARXIGA) PO SCH (08:31)
[2024-11-06] MEDS: RIVAROXABAN 20MG TAB (XARELTO) PO SCH (08:31)
[2024-11-06] MEDS: CitaloPRAM (CeleXA) 20 MG TAB PO SCH (08:31)
[2024-11-06] MEDS: oxyBUTYnin *DITROPAN XL* 5 MG TABCR PO SCH (08:31)
[2024-11-06] MEDS: METOPROLOL SUCC (TopROL XL) 50MG **XL** TAB PO SCH (08:33)
[2024-11-06] MEDS: busPIRone 10 MG TAB PO SCH (08:33)
[2024-11-06 12:00] VITALS: BP 157/91; TEMP 97.9; O2SAT 99
[2024-11-06] MEDS: INSULIN LISPRO (NovoLOG) PER UNIT SC SCH ×2 (15:01→22:14)
[2024-11-06 15:10] VITALS: BP 158/92; TEMP 97.5; O2SAT 96
[2024-11-06 20:00] VITALS: BP 134/81; TEMP 97.7; O2SAT 95
[2024-11-07 04:00] VITALS: BP 152/97; TEMP 97.5; O2SAT 99
[2024-11-07 06:03] LABS: HEMATOCRIT 37.6 % (42.0-52.0); HEMOGLOBIN 12.4 g/dl (13.5-17.5); LYMPH # 0.5 10^3/uL (1.5-5.0); LYMPH % 5.9 % (24.0-44.0); MEAN CORPUSCULAR HEMOGLOBIN 30.2 pg (27.0-33.0); MEAN CORPUSCULAR VOLUME 91.7 fl (80.0-96.0); MONO # 0.3 10^3/uL (0.0-0.8); MONO % 3.8 % (2.0-8.0); NEUTROPHILS # 7.8 10^3/uL (1.5-8.5); NEUTROPHILS % 89.7 % (36.0-66.0); PLATELET COUNT, AUTOMATED 159 10^3/uL (150-450); WHITE BLOOD COUNT 8.7 10^3/uL (4.0-10.0)
[2024-11-07 06:22] LABS: BLOOD UREA NITROGEN 29 MG/DL (9-23); CALCIUM LEVEL 9.1 MG/DL (8.3-10.6); CARBON DIOXIDE LEVEL 21 MMOL/L (20-31); CHLORIDE LEVEL 106 MMOL/L (98-107); GLOMERULAR FILTRATION RATE > 60.0 (>42); GLUCOSE, FASTING 180 MG/DL (74-106); MAGNESIUM LEVEL 1.9 MG/DL (1.8-2.4); POTASSIUM SERUM 4.2 MMOL/L (3.5-5.1); SODIUM LEVEL 139 MMOL/L (136-145)
[2024-11-07 08:43] VITALS: BP 150/93
[2024-11-07 12:00] VITALS: BP 146/90; TEMP 97.7; O2SAT 99
[2024-11-07] MEDS: dexAMETHasone 4 MG TAB PO SCH (20:39)
[2024-11-07] MEDS: ACETAMINOPHEN 325 MG TAB PO PRN (20:40)
[2024-11-08 05:00] VITALS: BP 150/92; TEMP 97.3; O2SAT 98
[2024-11-09 04:00] VITALS: BP 164/100; TEMP 97.7; O2SAT 99
[2024-11-09 05:02] VITALS: BP 145/93
[2024-11-09] MEDS: ONDANSETRON 4MG ORAL DISINTEGRATING TAB PO PRN (13:08)
[2024-11-10 04:00] VITALS: BP 152/88; TEMP 97.5; O2SAT 96
[2024-11-11 04:38] VITALS: BP 142/91; TEMP 97.7; O2SAT 98
[2024-11-12 04:21] VITALS: BP 172/100; TEMP 97.3; O2SAT 98
[2024-11-12 05:25] VITALS: BP 166/98
[2024-11-12 05:42] VITALS: BP 158/88
[2024-11-12 18:02] VITALS: TEMP 99.3
[2024-11-13 04:00] VITALS: BP 174/104; TEMP 97.5; O2SAT 94
[2024-11-13] MEDS: amLODIPine 5 MG TAB PO ONE (05:28)
[2024-11-13 07:43] VITALS: BP 160/92
[2024-11-14 04:09] VITALS: BP 170/104; TEMP 97.2; O2SAT 96
[2024-11-14] MEDS ORDERED: amLODIPine 5 MG TAB PO SCH (09:00)
[2024-11-15 04:00] VITALS: BP 164/90; TEMP 97.6; O2SAT 94
[2024-11-15 08:41] VITALS: BP 116/68
[2024-11-16 04:00] VITALS: BP 152/92; TEMP 97.3; O2SAT 100
[2024-11-16 08:45] VITALS: BP 142/90
[2024-11-16] MEDS: CHLORTHALIDONE 25 MG TAB PO SCH (08:47)
[2024-11-16] MEDS ORDERED: CHLO125TA PO (11:54)
[2024-11-16] MEDS ORDERED: DEXA4TA PO (11:56)
[2024-11-16] MEDS ORDERED: KEPP1TAB PO (11:59)
[2024-11-17] MEDS ORDERED: dexAMETHasone 4 MG TAB PO SCH (09:00)
== END 2024-11-16 13:38 | DRG 54 ==
LOC: M ED 10:27 → M ED INP 15:41 → M MSPAV 16:55
PROVIDERS: ADMIT Internal Medicine Nephrology; ATTEND Internal Medicine
DX: C79.31 Secondary malignant neoplasm of brain (principal); G93.41 Metabolic encephalopathy; G93.6 Cerebral edema; I50.32 Chronic diastolic (congestive) heart failure; E11.42 Type 2 diabetes mellitus with diabetic polyneuropathy; I11.0 Hypertensive heart disease with heart failure; I48.91 Unspecified atrial fibrillation; G47.33 Obstructive sleep apnea (adult) (pediatric); G40.A09 Absence epileptic syndrome, not intractable, without status epilepticus; Z66 Do not resuscitate; E78.5 Hyperlipidemia, unspecified; R21 Rash and other nonspecific skin eruption; M10.9 Gout, unspecified; J44.9 Chronic obstructive pulmonary disease, unspecified; F32.A Depression, unspecified; F41.9 Anxiety disorder, unspecified; G47.00 Insomnia, unspecified; D63.8 Anemia in other chronic diseases classified elsewhere; Z90.49 Acquired absence of other specified parts of digestive tract; Z98.49 Cataract extraction status, unspecified eye; Z87.891 Personal history of nicotine dependence; Z79.899 Other long term (current) drug therapy; Z85.828 Personal history of other malignant neoplasm of skin; Z95.810 Presence of automatic (implantable) cardiac defibrillator; Z98.84 Bariatric surgery status; Z85.46 Personal history of malignant neoplasm of prostate

== ENCOUNTER → 2024-11-14 | Outpatient (RCR) | payer MEDICARE, MEDICAID ==
[~2024-11-14] MED LIST changes: +CHLO125TA PO; +DEXA4TA PO; +KEPP1TAB PO
== END ==
LOC: M ONCR 11-06 13:41
PROVIDERS: ATTEND General Practice
DX: Z51.0 Encounter for antineoplastic radiation therapy (principal); C79.31 Secondary malignant neoplasm of brain

== ENCOUNTER → 2024-11-20 | Outpatient (REF) | payer MEDICARE, MEDICAID ==
[2024-11-20 13:46] LABS: HEMOGLOBIN A1c 6.3 % (4.0-6.0)
== END ==
LOC: SKLAB4 07:00
PROVIDERS: ATTEND Internal Medicine
DX: E11.9 Type 2 diabetes mellitus without complications (principal)

== ENCOUNTER → 2024-12-26 | Outpatient (CLI) | payer MEDICARE, MEDICAID | LOC: M PLARAD 10:11 | PROVIDERS: ATTEND Internal Medicine Medical Oncology | DX: C43.59 Malignant melanoma of other part of trunk (principal); Z53.9 Procedure and treatment not carried out, unspecified reason ==

== ENCOUNTER → 2025-01-02 | Outpatient (REF) | payer MEDICARE, MEDICAID ==
[2025-01-02 08:41] LABS: BASO % 0.4 % (0.0-1.0); EOS # 0.1 10^3/uL (0.0-0.5); EOS % 1.2 % (0.0-3.0); HEMATOCRIT 44.3 % (42.0-52.0); HEMOGLOBIN 14.9 g/dl (13.5-17.5); LYMPH # 1.1 10^3/uL (1.5-5.0); LYMPH % 20.7 % (24.0-44.0); MEAN CORPUSCULAR HEMOGLOBIN 31.4 pg (27.0-33.0); MEAN CORPUSCULAR HGB CONC 33.6 g/dl (32.0-36.5); MEAN CORPUSCULAR VOLUME 93.3 fl (80.0-96.0); MONO # 0.3 10^3/uL (0.0-0.8); MONO % 5.1 % (2.0-8.0); NEUTROPHILS # 3.7 10^3/uL (1.5-8.5); NEUTROPHILS % 71.4 % (36.0-66.0); PLATELET COUNT, AUTOMATED 159 10^3/uL (150-450); RED BLOOD COUNT 4.75 10^6/uL (4.30-6.10); WHITE BLOOD COUNT 5.1 10^3/uL (4.0-10.0)
[2025-01-02 09:13] LABS: ALBUMIN 3.2 G/DL (3.2-5.2); ALKALINE PHOSPHATASE 104 U/L (40-129); ALT/SGPT 27 U/L (7.0-40); AST/SGOT 15 U/L (<34); BILIRUBIN,TOTAL 0.7 MG/DL (0.3-1.2); BLOOD UREA NITROGEN 21 MG/DL (9-23); CALCIUM LEVEL 9.1 MG/DL (8.3-10.6); CARBON DIOXIDE LEVEL 30 MMOL/L (20-31); CHLORIDE LEVEL 98 MMOL/L (98-107); CHOLESTEROL LEVEL 241 MG/DL (<200); CHOLESTEROL RISK RATIO 2.74 (<5); GLOMERULAR FILTRATION RATE > 60.0 (>42); GLUCOSE, FASTING 159 MG/DL (74-106); HDL CHOLESTEROL 87.7 MG/DL (>40); LDL CHOLESTEROL 107.9 MG/DL (<100); MAGNESIUM LEVEL 1.9 MG/DL (1.8-2.4); NON-HDL-C 153.3 MG/DL; POTASSIUM SERUM 3.6 MMOL/L (3.5-5.1); SODIUM LEVEL 138 MMOL/L (136-145); TOTAL PROTEIN 6.4 G/DL (5.7-8.2); TRIGLYCERIDES LEVEL 227 MG/DL (<150)
== END ==
LOC: SKLAB4 07:00
PROVIDERS: ATTEND Internal Medicine
DX: G40.909 Epilepsy, unspecified, not intractable, without status epilepticus (principal); E83.42 Hypomagnesemia; E78.5 Hyperlipidemia, unspecified; I10 Essential (primary) hypertension

== ENCOUNTER → 2025-01-15 | Outpatient (REF) | payer MEDICARE, MEDICAID ==
[2025-01-15 12:03] LABS: HEMATOCRIT 43.8 % (42.0-52.0); HEMOGLOBIN 14.7 g/dl (13.5-17.5); MEAN CORPUSCULAR HEMOGLOBIN 31.4 pg (27.0-33.0); MEAN CORPUSCULAR HGB CONC 33.6 g/dl (32.0-36.5); MEAN CORPUSCULAR VOLUME 93.6 fl (80.0-96.0); PLATELET COUNT, AUTOMATED 153 10^3/uL (150-450); RED BLOOD COUNT 4.68 10^6/uL (4.30-6.10); WHITE BLOOD COUNT 5.5 10^3/uL (4.0-10.0)
[2025-01-15 12:31] LABS: BLOOD UREA NITROGEN 23 MG/DL (9-23); CALCIUM LEVEL 8.2 MG/DL (8.3-10.6); CARBON DIOXIDE LEVEL 31 MMOL/L (20-31); CHLORIDE LEVEL 97 MMOL/L (98-107); GLOMERULAR FILTRATION RATE > 60.0 (>42); GLUCOSE, FASTING 192 MG/DL (74-106); POTASSIUM SERUM 4.1 MMOL/L (3.5-5.1); SODIUM LEVEL 134 MMOL/L (136-145)
== END ==
LOC: SKLAB4 07:00
PROVIDERS: ATTEND Internal Medicine
DX: I10 Essential (primary) hypertension (principal)

== ENCOUNTER → 2025-01-17 | Outpatient (REF) | payer MEDICARE, MEDICAID ==
[2025-01-17 07:40] LABS: HEMATOCRIT 44.9 % (42.0-52.0); HEMOGLOBIN 15.3 g/dl (13.5-17.5); MEAN CORPUSCULAR HEMOGLOBIN 31.9 pg (27.0-33.0); MEAN CORPUSCULAR HGB CONC 34.1 g/dl (32.0-36.5); MEAN CORPUSCULAR VOLUME 93.5 fl (80.0-96.0); PLATELET COUNT, AUTOMATED 192 10^3/uL (150-450); WHITE BLOOD COUNT 6.9 10^3/uL (4.0-10.0)
[2025-01-17 08:09] LABS: BLOOD UREA NITROGEN 21 MG/DL (9-23); CALCIUM LEVEL 8.5 MG/DL (8.3-10.6); CARBON DIOXIDE LEVEL 30 MMOL/L (20-31); CHLORIDE LEVEL 98 MMOL/L (98-107); CREATININE FOR GFR 0.85 MG/DL (0.70-1.30); GLOMERULAR FILTRATION RATE > 60.0 (>42); GLUCOSE, FASTING 142 MG/DL (74-106); POTASSIUM SERUM 3.9 MMOL/L (3.5-5.1); SODIUM LEVEL 136 MMOL/L (136-145)
== END ==
LOC: SKLAB4 07:00
PROVIDERS: ATTEND Internal Medicine
DX: I10 Essential (primary) hypertension (principal)

== ENCOUNTER → 2025-01-18 | Outpatient (REF) | payer MEDICARE, MEDICAID ==
[2025-01-18 14:56] LABS: KETONE, URINE AUTO RFX NEGATIVE (NEGATIVE); MUCUS, URINE RFX SMALL (NEGATIVE); NITRITE, URINE AUTO RFX NEGATIVE (NEGATIVE); RBC, URINE AUTO RFX 3 /HPF (0-3); SQUAM EPITHELIAL CELL UR AURFX 0 /HPF (0-6); WBC, URINE AUTO RFX 4 /HPF (0-3)
[2025-01-18 14:57] LABS: LEUKOCYTE ESTERASE UR AUTO RFX TRACE (NEGATIVE)
== END ==
LOC: SKLAB4 12:21
PROVIDERS: ATTEND Internal Medicine
DX: R41.82 Altered mental status, unspecified (principal); R05.9 Cough, unspecified; Z95.0 Presence of cardiac pacemaker

== ENCOUNTER → 2025-02-05 | Outpatient (CLI) | payer MEDICARE, MEDICAID | LOC: M PLARAD 13:02 | PROVIDERS: ATTEND Internal Medicine Medical Oncology | DX: C43.59 Malignant melanoma of other part of trunk (principal); C79.51 Secondary malignant neoplasm of bone; C79.31 Secondary malignant neoplasm of brain; C78.7 Secondary malignant neoplasm of liver and intrahepatic bile duct; C79.72 Secondary malignant neoplasm of left adrenal gland; C79.89 Secondary malignant neoplasm of other specified sites | CPT/HCPCS: 78816; A9552 ==

== ENCOUNTER → 2025-02-05 | Outpatient (REF) | payer MEDICARE, MEDICAID | LOC: SKLAB4 07:00 | PROVIDERS: ATTEND Internal Medicine | DX: G40.909 Epilepsy, unspecified, not intractable, without status epilepticus (principal) ==

== ENCOUNTER → 2025-02-14 | Outpatient (CLI) | payer MEDICARE, MEDICAID | LOC: M ONCR 11:02 | PROVIDERS: ATTEND General Practice | DX: C79.31 Secondary malignant neoplasm of brain (principal); C43.61 Malignant melanoma of right upper limb, including shoulder; C79.51 Secondary malignant neoplasm of bone; C78.7 Secondary malignant neoplasm of liver and intrahepatic bile duct; C79.72 Secondary malignant neoplasm of left adrenal gland; C79.89 Secondary malignant neoplasm of other specified sites; Z98.890 Other specified postprocedural states; Z87.891 Personal history of nicotine dependence; Z79.85 Long-term (current) use of injectable non-insulin antidiabetic drugs; Z79.899 Other long term (current) drug therapy ==

== ENCOUNTER → 2025-02-15 | Outpatient (REF) | payer MEDICARE, MEDICAID ==
[2025-02-15 13:53] LABS: HEMATOCRIT 38.2 % (42.0-52.0); HEMOGLOBIN 12.8 g/dl (13.5-17.5); MEAN CORPUSCULAR HEMOGLOBIN 32.1 pg (27.0-33.0); MEAN CORPUSCULAR HGB CONC 33.5 g/dl (32.0-36.5); MEAN CORPUSCULAR VOLUME 95.7 fl (80.0-96.0); PLATELET COUNT, AUTOMATED 162 10^3/uL (150-450); RED BLOOD COUNT 3.99 10^6/uL (4.30-6.10); WHITE BLOOD COUNT 5.5 10^3/uL (4.0-10.0)
[2025-02-15 14:11] LABS: BLOOD UREA NITROGEN 34 MG/DL (9-23); CARBON DIOXIDE LEVEL 24 MMOL/L (20-31); CHLORIDE LEVEL 104 MMOL/L (98-107); CREATININE FOR GFR 0.82 MG/DL (0.70-1.30); GLOMERULAR FILTRATION RATE > 60.0 (>42); GLUCOSE, FASTING 182 MG/DL (74-106); POTASSIUM SERUM 3.6 MMOL/L (3.5-5.1); SODIUM LEVEL 137 MMOL/L (136-145)
== END ==
LOC: SKLAB4 13:06
PROVIDERS: ATTEND Internal Medicine
DX: R53.1 Weakness (principal)

== ENCOUNTER → 2025-02-21 | Outpatient (REF) | payer MEDICARE, MEDICAID ==
[~2025-02-21] MED LIST changes: -FLOM0.4C39 PO; +LANTINJ4; +ONDA-83; -SUCR1ORA2 PO; +SUCR1ORA20 PO; +TAMS-18 PO
[2025-02-21 07:03] LABS: ALBUMIN 2.3 G/DL (3.2-5.2); ALKALINE PHOSPHATASE 78 U/L (40-129); ALT/SGPT 16 U/L (7.0-40); AST/SGOT 27 U/L (<34); BILIRUBIN,TOTAL 0.5 MG/DL (0.3-1.2); BLOOD UREA NITROGEN 24 MG/DL (9-23); CALCIUM LEVEL 7.6 MG/DL (8.3-10.6); CARBON DIOXIDE LEVEL 27 MMOL/L (20-31); CHLORIDE LEVEL 105 MMOL/L (98-107); GLOMERULAR FILTRATION RATE > 60.0 (>42); GLUCOSE, FASTING 99 MG/DL (74-106); POTASSIUM SERUM 3.5 MMOL/L (3.5-5.1); SODIUM LEVEL 138 MMOL/L (136-145)
== END ==
LOC: SKLAB4 07:00
PROVIDERS: ATTEND Internal Medicine
DX: Z01.818 Encounter for other preprocedural examination (principal)

== ENCOUNTER → 2025-02-23 | Outpatient (CLI) | payer MEDICARE, MEDICAID ==
[~2025-02-23] MED LIST changes: +FLOM0.4C39 PO; +ISOVUE-370 76% 100ML VIAL As Ordered ONE; +SUCR1ORA2 PO; -SUCR1ORA20 PO; -TAMS-18 PO
== END ==
LOC: M RAD 14:35
PROVIDERS: ATTEND General Practice
DX: C79.31 Secondary malignant neoplasm of brain (principal)
CPT/HCPCS: 70470; Q9967

== ENCOUNTER → 2025-02-23 | Outpatient (REF) | payer MEDICARE, MEDICAID ==
[~2025-02-23] MED LIST changes: -FLOM0.4C39 PO; -ISOVUE-370 76% 100ML VIAL As Ordered ONE; -SUCR1ORA2 PO; +SUCR1ORA20 PO; +TAMS-18 PO
[2025-02-23 08:12] LABS: BLOOD UREA NITROGEN 25 MG/DL (9-23); CARBON DIOXIDE LEVEL 29 MMOL/L (20-31); CHLORIDE LEVEL 101 MMOL/L (98-107); CREATININE FOR GFR 0.81 MG/DL (0.70-1.30); GLOMERULAR FILTRATION RATE > 90.0 (>42); GLUCOSE, FASTING 67 MG/DL (74-106); POTASSIUM SERUM 3.5 MMOL/L (3.5-5.1); SODIUM LEVEL 140 MMOL/L (136-145)
== END ==
LOC: SKLAB4 07:00
PROVIDERS: ATTEND Internal Medicine
DX: E83.51 Hypocalcemia (principal)

== ENCOUNTER → 2025-02-28 | Outpatient (CLI) | payer MEDICARE, MEDICAID ==
[~2025-02-28] MED LIST changes: +FLOM0.4C39 PO; +SUCR1ORA2 PO; -SUCR1ORA20 PO; -TAMS-18 PO
== END ==
LOC: M PAL 12:02
PROVIDERS: ATTEND Family Medicine
DX: Z51.5 Encounter for palliative care (principal); C79.31 Secondary malignant neoplasm of brain; C43.9 Malignant melanoma of skin, unspecified; Z66 Do not resuscitate; Z79.01 Long term (current) use of anticoagulants; Z79.4 Long term (current) use of insulin; Z79.52 Long term (current) use of systemic steroids; Z79.85 Long-term (current) use of injectable non-insulin antidiabetic drugs; Z79.899 Other long term (current) drug therapy
CPT/HCPCS: G0463 ×2

== ENCOUNTER → 2025-02-28 | Outpatient (CLI) | payer MEDICARE, MEDICAID | LOC: M ONCR 11:04 | PROVIDERS: ATTEND General Practice | DX: C79.31 Secondary malignant neoplasm of brain (principal); C79.51 Secondary malignant neoplasm of bone; C78.7 Secondary malignant neoplasm of liver and intrahepatic bile duct; C79.72 Secondary malignant neoplasm of left adrenal gland; C43.61 Malignant melanoma of right upper limb, including shoulder; R53.81 Other malaise; Z98.890 Other specified postprocedural states; Z92.3 Personal history of irradiation; Z87.891 Personal history of nicotine dependence; Z79.4 Long term (current) use of insulin; Z79.01 Long term (current) use of anticoagulants; Z79.899 Other long term (current) drug therapy; Z95.0 Presence of cardiac pacemaker; Z66 Do not resuscitate; Z92.29 Personal history of other drug therapy ==